=== PATIENT | female | born 1970 | race Caucasian/White ===

== ENCOUNTER 2016-12-18 10:25 | Emergency (ER) | payer MEDICAID ==
[~2016-12-18] VITALS: Ht 170.2 cm; Wt 45.4 kg
[2016-12-18 10:25] VITALS: BP 120/80; PULSE 108; RESP 19; TEMP 97.5; O2SAT 94
[~2016-12-18 10:25] MED LIST: ALBMDI INH; ALBU1.256 IH; FLUT1DIS IH; FLUT1DIS3 INH; HYDR-4100 PO; LEVA0.31 IH; LORA10TA68 PO; MONT4TAB8 PO; PRED5TAB PO
--- NOTE | 2016-12-18 10:25 | NUR ---
BROUGHT BACK TO BED #4, TRIAGED, REPORT GIVEN TO DIANA
--- NOTE | 2016-12-18 10:31 | NUR ---
DR PAGE AT BEDSIDE FOR EVALUATION
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
--- NOTE | 2016-12-18 10:50 | NUR ---
PT ACTING STRANGELY, WALKING AROUND ER AND GETTING INTO EVERYTHING, SCRAMBLING THROUGH DRAWERS, EATING REGULAR DIET AT THIS TIME. PT STATES LAST USE OF METH WAS YESTERDAY. HYPERVERBAL.
[2016-12-18] MEDS ORDERED: PREDNISONE 20 MG TABLET PO ONE (11:00)
[2016-12-18] MEDS ORDERED: OMEPRAZOLE 20 MG CAPSULE.DR (PriLOSEC) PO ONE (11:00)
[2016-12-18] MEDS ORDERED: IPRATROPIUM BROM 0.5 MG/2.5 ML VIAL.NEB (ATROVENT) IH ONE (11:00)
[2016-12-18] MEDS ORDERED: ALBUTEROL SULFATE 0.083% 2.5 MG/3 ML VIAL.NEB IH ONE (11:00)
--- NOTE | 2016-12-18 11:36 | NUR ---
Pt refused breathing tx.
--- NOTE | 2016-12-18 11:37 | NUR ---
PT IS REFUSING ALL TREATMENTS, REFUSED BREATHING TREATMENTS, DR PAGE AWARE. PT SIGNED OUT AMA.
[2016-12-18 11:38] VITALS: BP 120/80; PULSE 108; RESP 19; TEMP 97.5; O2SAT 94
--- NOTE | 2016-12-18 11:38 | NUR ---
Patient does not wish to proceed with medical care recommended by DR PAGE. Patient given information related to possible complications, up to and including , which could occur as a result of leaving hospital at this time. Patient verbalizes understanding of risks involved leaving against medical advice. Patient has signed AMA form.
== END 2016-12-18 11:38 | disposition home or self-care (01) ==
LOC: SED 10:25
DX: J45.901 Unspecified asthma with (acute) exacerbation (principal); F15.10 Other stimulant abuse, uncomplicated; H57.12 Ocular pain, left eye; E11.9 Type 2 diabetes mellitus without complications; K21.9 Gastro-esophageal reflux disease without esophagitis; Z86.59 Personal history of other mental and behavioral disorders; Z88.4 Allergy status to anesthetic agent; Z88.8 Allergy status to other drugs, medicaments and biological substances; Z88.1 Allergy status to other antibiotic agents
CPT/HCPCS: 99283; J7512

== ENCOUNTER 2017-01-05 00:09 | Emergency (ER) | payer MEDICAID ==
[~2017-01-05] VITALS: Ht 167.6 cm; Wt 40.8 kg
[~2017-01-05 00:09] MED LIST changes: -ALBU1.256 IH; -FLUT1DIS IH; -HYDR-4100 PO; -LEVA0.31 IH; -LORA10TA68 PO; -MONT4TAB8 PO; -PRED5TAB PO
[2017-01-05 00:24] VITALS: BP_SYST 153
--- NOTE | 2017-01-05 00:43 | NUR ---
Patient to ER bed 5 to gown for evaluation. Side rails up. Report given to Dina PIMENTEL.
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
--- NOTE | 2017-01-05 01:19 | NUR ---
ER MD De Jesus at bedside for evaluation
--- NOTE | 2017-01-05 01:37 | NUR ---
RT at bedside for breathing treatment
[2017-01-05] MEDS ORDERED: LevALBUTEROL HCL 1.25 MG/0.5 ML *CONC.* VIAL.NEB (XOPENEX CONC.) INH ONE ×2 (01:45→02:15)
[2017-01-05] MEDS ORDERED: IPRATROPIUM BROM 0.5 MG/2.5 ML VIAL.NEB (ATROVENT) IH ONE (01:45)
[2017-01-05] MEDS ORDERED: PREDNISONE 20 MG TABLET PO ONE (02:15)
--- NOTE | 2017-01-05 02:20 | NUR ---
RT at bedside for breathing treatment
[2017-01-05 03:29] VITALS: BP_SYST 130
--- NOTE | 2017-01-05 03:29 | NUR ---
Patient given written and verbal discharge instructions and verbalizes understanding. ER MD De Jesus discussed with patient the results and treatment provided. Patient in stable condition. ID arm band removed. Rx of tylenol/codeine & prednisone given. Patient educated on pain management and to follow up with PMD. Pain Scale 0/10. Opportunity for questions provided and answered.
== END 2017-01-05 03:29 | disposition home or self-care (01) ==
LOC: SED 00:09
DX: S00.12XA Contusion of left eyelid and periocular area, initial encounter (principal); I10 Essential (primary) hypertension; E11.9 Type 2 diabetes mellitus without complications; K21.9 Gastro-esophageal reflux disease without esophagitis; M41.9 Scoliosis, unspecified; Z88.4 Allergy status to anesthetic agent; Z88.8 Allergy status to other drugs, medicaments and biological substances; Y08.89XA Assault by other specified means, initial encounter; Y93.89 Activity, other specified; Y92.89 Other specified places as the place of occurrence of the external cause; Y99.8 Other external cause status; J44.9 Chronic obstructive pulmonary disease, unspecified
CPT/HCPCS: 94640; 99284; J7512

== ENCOUNTER 2017-01-17 17:23 | Inpatient (IN) | payer MEDICAID ==
[~2017-01-17] VITALS: Ht 167.6 cm; Wt 56.7 kg
[2017-01-17 17:23] VITALS: BP 136/92; PULSE 114; RESP 26; TEMP 97.1; O2SAT 94
[~2017-01-17 17:23] MED LIST changes: +ALBU1.256 IH; +FLUT1DIS IH; +HYDR-4100 PO; +LEVA0.31 IH; +LORA10TA68 PO; +MONT4TAB8 PO; +PRED5TAB PO
--- NOTE | 2017-01-17 17:23 | NUR ---
Pt presents to ED with abrupt involuntary movement- Constantly moving/jerking. Pt is disoriented with flight of ideas. Pt does not follow simple commands. No dyspnea or sob on RA. Unable to insert IV at this time.
--- NOTE | 2017-01-17 17:23 | NUR ---
Placed in room 5 . Placed on pvc monitor, blood pressure machine and pulse oximeter. To gown for exam. Side rails up.
--- NOTE | 2017-01-17 17:26 | NUR ---
ER at bedside examining patient.
[2017-01-17] MEDS ORDERED: DIAZEPAM 10 MG/2 ML DISP.SYRIN IM ONE ×2 (17:30→18:00)
[2017-01-17] MEDS ORDERED: DIPHENHYDRAMINE INJ 50 MG/ML VIAL IM ONE (18:00)
--- NOTE | 2017-01-17 18:20 | NUR ---
Telemetry removed. pt cont to get tangled and remove. Pt cont to thrash in bed.
[2017-01-17 18:31] LABS: ANION GAP 4 (5-15); CHLORIDE 105 mmol/L (98-107); CREATININE 0.81 mg/dL (0.55-1.30); GLUCOSE 83 mg/dL (70-99); POTASSIUM 3.8 mmol/L (3.5-5.1); SODIUM SERUM 140 mmol/L (136-145); UREA NITROGEN, BLOOD 23 mg/dL (8-21)
[2017-01-17 18:33] LABS: PROTHROMBIN TIME 10.6 SECS (9.5-12.5)
[2017-01-17 18:35] LABS: ALANINE AMINOTRANSFERASE 60 U/L (12-78); ALBUMIN 4.2 g/dL (3.4-4.8); ASPARTATE AMINOTRANSFERASE 58 U/L (10-37); SALICYLATE 2 mg/dL (3-30); TOTAL BILIRUBIN 0.5 mg/dL (0.0-1.0); TOTAL PROTEIN, SERUM 7.2 g/dL (6.4-8.3)
--- NOTE | 2017-01-17 18:35 | NUR ---
# 20 gauge angiocath placed to RUE. Use of asceptic technique. Opsite placed over site. Blood return noted. Blood for lab drawn from site. Flushed with 10 cc of normal saline. No evidence of infiltration noted. Patient tolerated well.
[2017-01-17 18:36] LABS: ALCOHOL, BLOOD < 3 mg/dL (<10); BASOPHILS # (AUTO) 0.1 K/uL (0.0-0.2); BASOPHILS % (AUTO) 0.3 % (0.0-2.0); EOSINOPHILS # (AUTO) 1.8 K/uL (0.0-0.4); EOSINOPHILS % (AUTO) 10.5 % (0.0-4.0); GFR AFRICAN AMERICAN 97 mL/min (>90); HEMATOCRIT 39.8 % (36-48); HEMOGLOBIN 12.7 g/dL (12.0-16.0); LYMPHOCYTES # (AUTO) 2.8 K/uL (1.0-5.5); MEAN CORPUSCULAR HEMOGLOBIN 27 pg (27-31); MEAN CORPUSCULAR HGB CONC 32 % (32-36); MEAN CORPUSCULAR VOLUME 85 fL (79.0-98.0); MONOCYTES # (AUTO) 1.4 K/uL (0.0-1.0); MONOCYTES % (AUTO) 8.1 % (1.7-9.3); NEUTROPHILS # (AUTO) 11.2 K/uL (1.8-7.7); NEUTROPHILS % (AUTO) 65.1 % (40.0-70.0); PLATELET COUNT (AUTO) 368 K/uL (130-430); RED CELL DISTRIBUTION WIDTH 17.8 % (9.0-15.0); WHITE BLOOD COUNT (AUTO) 17.4 K/uL (4.8-10.8)
[2017-01-17] MEDS ORDERED: LORazepam 2 MG/ML VIAL (FOR ER USE) IVP ONE ×2 (18:45→20:00)
--- NOTE | 2017-01-17 18:54 | NUR ---
Pt cont thrashing around, agitated. Admin Ativan IVP. pt rox well
[2017-01-17] MEDS ORDERED: NACL 0.9% 1,000 ML IV ONE (19:15)
--- NOTE | 2017-01-17 19:18 | NUR ---
Endorsed care to MARGARITO Arroyo
--- NOTE | 2017-01-17 19:20 | NUR ---
Patient is agitated, cant stand still. Unable to do EKG or CT scan. ER MD aware.
[2017-01-17 19:26] LABS: ACETAMINOPHEN < 1 ug/mL (1-30)
[2017-01-17] MEDS ORDERED: DIPHENHYDRAMINE INJ 50 MG/ML VIAL IVP ONE (20:00)
[2017-01-17] MEDS ORDERED: HALOPERIDOL LACTATE 5 MG/ML VIAL IVP ONE (20:00)
[2017-01-17 20:25] VITALS: BP 133/88; PULSE 85; RESP 18; TEMP 96.4; O2SAT 94
--- NOTE | 2017-01-17 20:50 | NUR ---
Patient will be admitted to care of DR BEACH. Admitted to TELE unit. Will go to room 135. Belongings list completed. Summary report printed. Report will be given at bedside.
--- NOTE | 2017-01-17 21:02 | NUR ---
Transfer to [facility] via ACLS protocol. Licensed nurse present. IV present no signs or symptoms of infiltration.
--- NOTE | 2017-01-17 21:25 | NUR ---
NOTES RECEIVED THE PT FROM THE ER PT VERY SLEEPY.RN IS AT THE BEDSIDE.PT ON THE MONITOR AND SHOWS SR.PT ORIENTED TO NAME ONLY.CALL LIGHT WITHIN REACH ,DR BEACH IS HERE.CONTINUE TO MONITOR.
--- NOTE | 2017-01-17 21:25 | NUR ---
Admission Note Received patient from ER with diagnosis of acute phycosis. Initial Plan of Care discussed-patient verbalized understanding. Family at bedside. Oriented to room, call light, pain management and safety.
--- NOTE | 2017-01-17 21:31 | NUR ---
ADMISSION NOTE Received patient from ER via rkermit. Patient admitted with diagnosis of acute psychosis. Patient is awake, alert, oriented X 1. Patient oriented to hospital room, call light, toileting, pain management and safety-teach back done. Patient informed that Braulio SPENCE will be her nurse and that their room number is 103A. Call light within reach.
[2017-01-17] MEDS: D5LR 1,000 ML IV SCH (21:56)
[2017-01-17] MEDS ORDERED: HALOPERIDOL LACTATE 5 MG/ML VIAL IVP PRN (22:00)
[2017-01-17] MEDS ORDERED: HYDROcodone/ACETAMIN 10-325 MG TAB PO PRN (22:00)
[2017-01-17] MEDS ORDERED: ACETAMINOPHEN 325 MG TABLET PO PRN (22:00)
[2017-01-17] MEDS ORDERED: LORazepam 2 MG/ML VIAL IVP PRN (22:00)
[2017-01-17] MEDS ORDERED: HYDROcodone/ACETAMIN 5-325 MG TAB (NORCO/ VICODIN) PO PRN (22:00)
[2017-01-17] MEDS ORDERED: ONDANSETRON HCL 4 MG/2 ML VIAL IVP PRN (22:00)
--- NOTE | 2017-01-17 22:35 | NUR ---
CONSULTATION PAGED REASON FOR CONSULTATION:PSYCHOSIS WAS CONSULT CALLED?Y PERSON WHO WAS NOTIFIED:SULEMAN CONSULTING PHYSICIAN:,SAID BRIDGE OPERATOR SLIP SPECIALTY:PSYCH BRIDGE OPERATOR SLIP PHONE NUMBER:[phone]
[2017-01-18] MEDS ORDERED: LORazepam 2 MG/ML VIAL IVP PRN (00:30)
[2017-01-18] MEDS ORDERED: levETIRAcetam 500 MG TABLET PO ONE (00:30)
--- NOTE | 2017-01-18 01:45 | NUR ---
NOTES PT REMAINS ASLEEP.CONTINUE TO MONITOR.
--- NOTE | 2017-01-18 03:17 | NUR ---
NOTES PT REPOSITIONED.LARGE F.B.NOTICED TO LOWER RT ABDOMEN ,PT STATES IT IS A MORPHINE PUMP.
--- NOTE | 2017-01-18 05:15 | NUR ---
NOTES PT SLEEPING,CALL LIGHT WITHIN REACH.CONTINUE TO MONITOR.
--- NOTE | 2017-01-18 05:47 | NUR ---
FINAL ROUNDS PT IS RESTING @ THIS TIME. NO S/S OF PAIN OR ANY DISTRESS. V/S ARE WNL. ALL NEEDS MET AND ANTICIPATED BY [facility] NURSES. BED IN LOW POSITION WITH SIDE RAILS UP X 2 FOR SAFETY. CALL LIGHT WITHIN REACH; ENDORSED. Addendum: 01/18/17 at 0550 by Robert Canas RN WRONG PT PLS DISREGARD NOTES
--- NOTE | 2017-01-18 06:07 | NUR ---
CLOSING NOTES PT SLEEPING.CALL LIGHT WITHIN REACH.BED ALARM REMAINS ON.WILL ENDORSE THE CARE OF THE PT TO THE DAY NURSE.
[2017-01-18 06:32] VITALS: BP 136/70; PULSE 65; RESP 19; TEMP 97.9; O2SAT 98
[2017-01-18 07:23] LABS: HEMATOCRIT 38.6 % (36-48); HEMOGLOBIN 12.4 g/dL (12.0-16.0); MEAN CORPUSCULAR HEMOGLOBIN 27 pg (27-31); MEAN CORPUSCULAR HGB CONC 32 % (32-36); MEAN CORPUSCULAR VOLUME 84 fL (79.0-98.0); PLATELET COUNT (AUTO) 275 K/uL (130-430); RED BLOOD CELL COUNT(AUTO) 4.59 MIL/uL (4.2-6.2); RED CELL DISTRIBUTION WIDTH 17.1 % (9.0-15.0); WHITE BLOOD COUNT (AUTO) 8.1 K/uL (4.8-10.8)
--- NOTE | 2017-01-18 07:37 | NUR ---
INITIAL NOTE PT LAYING IN BED, RESTING, ORIENTED TO NAME, SLURRED SPEECH NOTED, IV TO EVANGELINA INTACT AND INFUSING FLUIDS AT ORDERED RATE, NO S/S OF INFILTRATION NOTED, UNABLE TO ORIENT PATIENT, PT DROWSY ADMITTED FOR PSYCHOSIS , SAFETY MEASURES IN PLACE, CALL LIGHT WITHIN REACH, BED ALARM ON, BED IN LOW POSITION AND LOCKED, AND ROOM LOCATED NEAR NURSING STATION, WILL CONTINUE TO MONITOR
[2017-01-18 07:49] LABS: CALCIUM 7.9 mg/dL (8.4-11.0); POTASSIUM 3.4 mmol/L (3.5-5.1)
[2017-01-18 07:50] LABS: CREATININE 0.61 mg/dL (0.55-1.30); TOTAL BILIRUBIN 0.6 mg/dL (0.0-1.0); TOTAL PROTEIN, SERUM 5.6 g/dL (6.4-8.3)
[2017-01-18 08:02] VITALS: BP 105/65; PULSE 77; RESP 12; TEMP 97.5; O2SAT 95
[2017-01-18] MEDS: ENOXAPARIN SODIUM 40 MG/0.4 ML SYRINGE SUBCUT SCH (08:09)
[2017-01-18 08:30] LABS: CKMB RELATIVE INDEX 4.2 (0.0-2.9)
[2017-01-18] MEDS ORDERED: levETIRAcetam 500 MG TABLET PO SCH (09:00)
[2017-01-18 09:22] LABS: BASOPHILS % (MANUAL) 0 % (0-2); EOSINOPHILS % (MANUAL) 17 % (0-7); LYMPHOCYTES % (MANUAL) 25 % (20-46); MONOCYTES % (MANUAL) 5 % (0-11)
--- NOTE | 2017-01-18 09:26 | NUR ---
LABS NOTED, GLUCOSE 76 ENTERED ROOM ENCOURAGED PT TO TAKE A DRINK OF ORANGE JUICE, PT TOOK A SMALL SIP, THEN STATED THAT WAS ENOUGH, EDUCATED PATIENT REGARDING HYPOGLYCEMIA, PT REFUSED DESPITE EDUCATION STATED THAT'S ENOUGH LEAVE ME ALONE, WILL CONTINUE TO MONITOR.
--- NOTE | 2017-01-18 10:30 | NUR ---
Pt resting, easy to arouse, encouraged to drink orange juice, pt compliant had orange juice, pt changed position and returned to sleep. no s/s of distress, responds when asked questions, call light within reach, safety measures in place, bed alarm on , will continue to monitor
[2017-01-18] MEDS: D5LR 1,000 ML IV SCH ×2 (10:57→22:03)
--- NOTE | 2017-01-18 11:33 | NUR ---
FOLLOW UP ON BLOOD GLUCOSE, ACCUCHECK 82, PT RESTING, ABLE TO AROUSE, SLURRED SPEECH NOTED, PER PATIENT JUST WANTS TO SLEEP, SAFETY MEASURES IN PLACE, SIDE RAILS UP X3, BED ALARM ON, CALL LIGHT WITHIN REACH, WILL CONTINUE TO MONITOR
[2017-01-18 12:15] VITALS: BP 113/73; PULSE 82; RESP 18; TEMP 97.6; O2SAT 96
--- NOTE | 2017-01-18 12:53 | NUR ---
DR BEACH ROUNDING PT UP EATING LUNCH, AWAKE, ALERT, PT AWARE SHE IS IN HOSPITAL UNABLE TO STATE WHICH HOSPITAL, PT ORIENTED TO LOCATION, PT VERBALIZED UNDERSTANDING AND ASKED FOR SPRITE, SAFETY MEASURES IN PLACE, BED ALARM ON, CALL LIGHT WITHIN REACH, BED IN LOW POSITION AND LOCKED, WILL CONTINUE TO MONITOR
--- NOTE | 2017-01-18 13:10 | NUR ---
DR BEACH AT BEDSIDE, AWARE OF PATIENT IMPLANTED PAIN PUMP TO LOWER RIGHT QUADRANT ABDOMEN, PER MD THE IMPLANT IS AM OLD DESIGN MAYBE 10YRS OLD, PT REINA TO VERBALIZE SHE HAS A PAIN PUMP, NOT ABLE TO STAT WHY, MD STATED TO CONTINUE TO MONITOR AND FOLLOW UP AND PSYCH EVALUATION. RECEIVED NEW ORDER FOR POTASSIUM PO, ORDER NOTED AND CARRIED OUT. SAFETY MEASURES IN PLACE, CALL LIGHT WITH IN REACH, BED ALARM ON, WILL CONTINUE TO MONITOR PATIENT.
[2017-01-18] MEDS ORDERED: POTASSIUM CHLORIDE 20 MEQ TAB.PRT.SR PO ONE (13:15)
--- NOTE | 2017-01-18 14:00 | NUR ---
Social Service Note: Pt referred to social service manager by physician and nursing due to pt being homeless. CAR CLERK PULLMAN met with pt at bedside; pt responds when her name is called; pt falling asleep while talking to CAR CLERK PULLMAN. Pt nodded off multiple times during conversation and needed to be woken up to finish conversation. Pt stated that she stays in [facility] with her boyfriend Roly. CAR CLERK PULLMAN could not determine if Roly is homeless or if he has a residence. Pt states that upon discharge she will go back with Roly. Pt states that she does use meth; pt reports using meth about once a week; pt states that her last use was about one week ago. CAR CLERK PULLMAN will follow up with pt to provide resources when pt can participate further in conversation. CAR CLERK PULLMAN will remain available for support and will follow up as needed.
[2017-01-18 16:50] VITALS: BP 114/73; PULSE 68; RESP 18; TEMP 97.2; O2SAT 93
--- NOTE | 2017-01-18 17:00 | NUR ---
ROUNDS PT LAYING ON HER SIDE IN BED, NO S/S OF DISTRESS OR COMPLAINT OF PAIN, PT IS CALM, NO AGITATED, PT STATES SHE JUST WANTS TO CONTINUE RESTING, SAFETY MEASURES IN PLACE, CALL LIGHT WITHIN REACH, WILL CONTINUE TO MONITOR
--- NOTE | 2017-01-18 17:46 | NUR ---
PER AM REPORT URINE DRUG SCREEN AND UA PROFILE WAS CANCELLED LAST NIGHT DUE TO THE PATIENT NOT ABLE TO VOID, PER REPORT IF PATIENT WAS ABLE TO VOID RN WAS TO PLACE ORDER AND RETRIEVE SPECIMEN, PT VOIDED IN HAT, SPECIMEN RETRIEVED AND SENT TO LAB, ORDER PLACED. WILL FOLLOW UP
[2017-01-18 17:51] LABS: BILIRUBIN,URINE NEGATIVE (NEGATIVE); BLOOD, URINE 1+ (NEGATIVE); CLARITY/URINE SL HAZY (CLEAR); COLOR,URINE YELLOW (YELLOW); GLUCOSE,URINE NEGATIVE (NEGATIVE); KETONES,URINE NEGATIVE (NEGATIVE); LEUKOCYTE ESTERASE ,URINE NEGATIVE (NEGATIVE); NITRITE, URINE POSITIVE (NEGATIVE); PH,URINE 6.5 (5.0-8.0); PROTEIN URINE NEGATIVE (NEGATIVE); UROBILINOGEN,URINE 0.2 (0.2-1.0)
[2017-01-18 18:38] LABS: BARBITURATE, URINE NEGATIVE (NEG <=200); BENZODIAZEPINE, URINE POSITIVE (NEG <=150); CANNABINOID, URINE NEGATIVE (NEG <=50); COCAINE, URINE NEGATIVE (NEG <=150); METHAMPHETAMINES SCREEN,URINE POSITIVE (NEG <=500); OPIATE, URINE NEGATIVE (NEG <=100); PHENCYCLIDINE SCREEN,URINE NEGATIVE (NEG <=25); UR TRICYCLIC ANTIDEPRESSANTS NEGATIVE (NEG <=300); URINE AMPHETAMINE POSITIVE (NEG <=500); URINE METHADONE NEGATIVE (NEG <=200); URINE OXYCODONE SCREEN NEGATIVE (NEG <=100); URINE PROPOXYPHENE SCREEN NEGATIVE (NEG <=300)
[2017-01-18 18:49] LABS: BACTERIA,URINE MANY /HPF (None Seen); MUCUS,URINE 1+ /LPF (None Seen)
--- NOTE | 2017-01-18 19:00 | NUR ---
CLOSING NOTE PT RESTING, AROUSES TO NAME, EVEN RISE AND FALL OF CHEST, NO COMPLAINT OF PAIN OR S/S OF DISTRESS, IV FLUIDS AT ORDERED RATE, NO S/S OF INFILTRATION NOTED ALL NEEDS ATTENDED TO THROUGHOUT SHIFT, SAFETY MEASURES MAINTAINED, BED ALARM ON, BED IN LOW POSITION AND LOCKED, CALL LIGHT WITHIN REACH, SIDE RAILS UP X3, WILL GIVE REPORT TO FOLLOWING SHIFT.
--- NOTE | 2017-01-18 19:55 | NUR ---
OPENING NOTE Pt. and report received from day shift nurse. Pt. arousable to name, but is very "tired" and resting in bed. IV site to right upper arm 20g is infusing IVF as ordered. Plan of care discussed. Pt. verbalized understanding. Seizure pads in place, no s/s of seizure activity at this time. Safety precautions in place. Educated pt. to use call light for needs and assistance OOB. Call light to right hand. Bed alarm on. Will continue to monitor.
[2017-01-18 20:00] VITALS: BP 120/72; PULSE 86; RESP 17; TEMP 97.5; O2SAT 93
--- NOTE | 2017-01-18 22:45 | NUR ---
IVF/REQUESTED SNACK IVF infusing as ordered. Pt. denies any pain or discomfort at this time. Requested snack and juice. Pt. tolerated well. No s/s of acute distress. Safety and seizure precautions in place. Bed alarm on. No s/s of seizure activity noted at this time. Will continue to monitor.
[2017-01-19 00:02] VITALS: BP 115/79; PULSE 78; RESP 17; TEMP 97; O2SAT 93
--- NOTE | 2017-01-19 00:03 | NUR ---
ROUNDS Pt. is resting quietly in bed with eyes closed, easily arousable to name. Respirations are even and unlabored with visible chest rise and fall. No s/s of acute distress. No s/s of seizure activity noted at this time. Safety and seizure precautions in place. Bed alarm on. Call light to right hand. Will continue to monitor.
--- NOTE | 2017-01-19 01:10 | NUR ---
BED ALARM WENT OFF/ASSISTED PT. TO BATHROOM Pt.'s bed alarm went off, pt. stated she needed to void. Assisted pt. to bathroom due to unsteady gait. CNAs at bedside changing pt.'s bed linen due to soiling. Reminded pt. to use call light but pt. appears to be forgetful and confused. Call light placed to right hand and demonstrated pt. on how to use. Pt. requested apple juice. No s/s of acute distress. Pt. denies any pain or discomfort at this time. Pt. refusing to wear slippers but will continue to encourage. Safety and seizure precautions are in place. No s/s of seizure activity noted at this time. Bed alarm on. Will continue to monitor.
--- NOTE | 2017-01-19 02:10 | NUR ---
PATIENT RESTING Pt. is resting quietly in bed with eyes closed, respirations are even and unlabored with visible chest rise and fall. No s/s of acute distress. Safety and seizure precautions in place. No s/s of seizure activity noted at this time. Bed alarm on. Call light to right hand. Will continue to monitor.
[2017-01-19 04:15] VITALS: BP 134/89; PULSE 76; RESP 16; TEMP 98; O2SAT 95
--- NOTE | 2017-01-19 04:17 | NUR ---
PT. RESTING Pt. is resting quietly in bed with eyes closed, respirations are even and unlabored with visible chest rise and fall. No s/s of acute distress or seizure activity at this time. Safety and seizure precautions in place. Call light to right hand. Bed alarm on. Will continue to monitor.
--- NOTE | 2017-01-19 05:08 | NUR ---
CONSULTATION FOLLOW UP REASON FOR CONSULTATION:PSYCHOSIS WAS CONSULT CALLED?Y PERSON WHO WAS NOTIFIED:IRENE CONSULTING PHYSICIAN:,SAID COMBINE MECHANIC SPECIALTY:PSYCH COMBINE MECHANIC PHONE NUMBER:[phone]
--- NOTE | 2017-01-19 05:12 | NUR ---
CONSULT F/U WITH DR. BENITA Antonio, manager monitoring, spoke with Inga from exchange to page/follow up with Dr. Murphy (neuro consult for psychosis). Will continue to f/u.
--- NOTE | 2017-01-19 06:13 | NUR ---
CLOSING NOTES Pt. requested apple juice. All needs met throughout shift. Pt. is stable with no s/s of acute distress. Safety, seizure and fall precautions maintained throughout shift and are in place. Bed alarm on. Call light to right hand but pt. is forgetful and unable to use. Room near nurses station. Will endorse care to oncoming day shift nurse.
[2017-01-19 06:50] LABS: ANION GAP 1 (5-15); CALCIUM 8.3 mg/dL (8.4-11.0); CHLORIDE 106 mmol/L (98-107); CREATININE 0.58 mg/dL (0.55-1.30); GLUCOSE 87 mg/dL (70-99); SODIUM SERUM 137 mmol/L (136-145); UREA NITROGEN, BLOOD 9 mg/dL (8-21)
[2017-01-19 07:01] LABS: BASOPHILS % (AUTO) 0.4 % (0.0-2.0); EOSINOPHILS # (AUTO) 1.5 K/uL (0.0-0.4); EOSINOPHILS % (AUTO) 19.3 % (0.0-4.0); HEMATOCRIT 40.2 % (36-48); HEMOGLOBIN 12.8 g/dL (12.0-16.0); LYMPHOCYTES # (AUTO) 1.8 K/uL (1.0-5.5); MEAN CORPUSCULAR HEMOGLOBIN 27 pg (27-31); MEAN CORPUSCULAR HGB CONC 32 % (32-36); MEAN CORPUSCULAR VOLUME 85 fL (79.0-98.0); MONOCYTES # (AUTO) 0.6 K/uL (0.0-1.0); MONOCYTES % (AUTO) 8.4 % (1.7-9.3); NEUTROPHILS # (AUTO) 3.8 K/uL (1.8-7.7); NEUTROPHILS % (AUTO) 48.9 % (40.0-70.0); PLATELET COUNT (AUTO) 305 K/uL (130-430); RED BLOOD CELL COUNT(AUTO) 4.73 MIL/uL (4.2-6.2); WHITE BLOOD COUNT (AUTO) 7.7 K/uL (4.8-10.8)
--- NOTE | 2017-01-19 08:00 | NUR ---
AM Notes Pt aaox2 with confusion and forgetfulness. No complaints of pain or discomfort. No distress noted. Pt feeling anxious and restless. Calming and comfort measures done. Fall and safety precautions enforced with bed alarm armed, 3 rails up, fall risk band on and close to nurse's station. Seizure precautions enforced with pads on rails. Encouraged to call for assistance. Call light within reach. Will monitor.
[2017-01-19 08:36] VITALS: BP 125/90; PULSE 105; RESP 20; TEMP 97.9; O2SAT 95
--- NOTE | 2017-01-19 09:02 | NUR ---
MADE A F/U CONSULT TO [facility], DR JOY RE: PSYCHOSIS. SPOKE TO RAY
--- NOTE | 2017-01-19 09:21 | NUR ---
Dr. Jeffrey LYNNE doing rounds and assessing patient. Plan of care discussed.
[2017-01-19] MEDS: ENOXAPARIN SODIUM 40 MG/0.4 ML SYRINGE SUBCUT SCH (09:27)
--- NOTE | 2017-01-19 10:00 | NUR ---
Rounds Pt sound asleep. No signs of facial grimacing for pain or discomfort. No distress noted. Safety precautions enforced with bed alarm armed. Call light within reach.
[2017-01-19] MEDS: D5LR 1,000 ML IV SCH (10:56)
--- NOTE | 2017-01-19 11:38 | NUR ---
Rafael scale evaluation: Patient evaluated for a low Rafael score of 14. Patient was awake, alert, and oriented 2, and received in a [place] bed with an Isoflex KAROLINA mattress. Patient is able to turn in bed independently. Skin is good minus. Recommend encourage and assist patient as needed with repositioning every 2 hours with pillow support, and offload pressure areas with pillows for pressure redistribution. Elevate, offload and flow bilateral heels with pillows. Performed skin care and monitor skin integrity every shift.
[2017-01-19 11:41] VITALS: BP 122/82; PULSE 99; RESP 16; TEMP 97.4; O2SAT 96
--- NOTE | 2017-01-19 12:36 | NUR ---
Rounds Pt just finished eating lunch. Restlessness noted. No complaints of pain or discomfort. Fall and safety precautions enforced. Will continue to monitor.
--- NOTE | 2017-01-19 13:30 | NUR ---
Dr. Kristian LYNNE doing rounds. Plan of care discussed.
--- NOTE | 2017-01-19 13:48 | NUR ---
DC PLANNING: Dr. Townsend is in to discharge the pt. to home. Roly, the pt's boy friend will pick the pt. up between 3-4 pm. Roly # [phone] , JORDY Lemus made aware.
[2017-01-19] MEDS ORDERED: cefTRIAXone 1 GM in D5W 50 ML IV SCH (14:00)
[2017-01-19] MEDS ORDERED: cefTRIAXone 1 GM VIAL IM ONE (14:00)
--- NOTE | 2017-01-19 14:02 | NUR ---
Resting Pt went back to sleep after talking to Dr. Townsend. No significant changes noted. Will monitor.
[2017-01-19] MEDS ORDERED: CIPR-172 PO ×3 (14:23→14:26)
[2017-01-19 14:30] VITALS: BP 121/77; PULSE 96; RESP 19; TEMP 97; O2SAT 96
[2017-01-19 14:38] VITALS: BP 121/77; PULSE 97; RESP 19; TEMP 97
--- NOTE | 2017-01-19 15:10 | NUR ---
Discharge Discharge Discharge patient with boyfriend. Transitional care instructions and handout explained and prescription for Cipro explained and given. D/C IV and dressing applied. Vital signs stable. Pt left floor via w/c to private vehicle. No distress noted.
[2017-01-20] MEDS ORDERED: CITALOPRAM HYDROBROMIDE 20 MG TABLET PO SCH (09:00)
[2017-01-20] MEDS ORDERED: ARIPiprazole 5 MG TAB PO SCH ×2 (09:00)
== END 2017-01-19 15:10 | disposition home or self-care (01) | DRG 751 ==
LOC: SED 17:23 → STU 20:57 → SMU 01-18 13:00
PROVIDERS: ADMIT Internal Medicine; ATTEND Internal Medicine
DX: F23 Brief psychotic disorder (principal); M62.82 Rhabdomyolysis; E86.0 Dehydration; N39.0 Urinary tract infection, site not specified; J44.9 Chronic obstructive pulmonary disease, unspecified; F32.9 Major depressive disorder, single episode, unspecified; F15.10 Other stimulant abuse, uncomplicated; E11.9 Type 2 diabetes mellitus without complications; K21.9 Gastro-esophageal reflux disease without esophagitis; G89.29 Other chronic pain; M54.2 Cervicalgia; M54.9 Dorsalgia, unspecified; F22 Delusional disorders; Z59.0 Homelessness; Z88.4 Allergy status to anesthetic agent; Z88.1 Allergy status to other antibiotic agents; Z88.8 Allergy status to other drugs, medicaments and biological substances; Z79.899 Other long term (current) drug therapy
CPT/HCPCS: 36415; 71010; 80048; 80053; 80307; 81000-TC; 82550-TC; 82553-TC; 82962; 84484; 85007; 85025; 85027; 85610-TC; 85730-TC; 87081; 93005; 96361; 96372; 96374; 96375; 96376; 99285; G0480; G0481; G0482; J0696; J1200; J1630; J1650; J2060; J3360; J7030; J7120

== ENCOUNTER 2017-04-05 07:52 | Inpatient (IN) | payer MEDICAID ==
[~2017-04-05] VITALS: Ht 167.6 cm; Wt 45.4 kg
[2017-04-05 07:52] VITALS: BP_SYST 92
[~2017-04-05 07:52] MED LIST changes: -ALBU1.256 IH; +CIPR-172 PO; -FLUT1DIS IH; -HYDR-4100 PO; -LEVA0.31 IH; -LORA10TA68 PO; -MONT4TAB8 PO; -PRED5TAB PO
[2017-04-05] MEDS ORDERED: ALBUTEROL SULFATE 0.083% 2.5 MG/3 ML VIAL.NEB IH ONE ×3 (08:00→13:30)
[2017-04-05] MEDS ORDERED: methylPREDNISolone SOD SUCC/PF 62.5 MG/ML VIAL IVP ONE (08:00)
[2017-04-05] MEDS ORDERED: IPRATROPIUM BROM 0.5 MG/2.5 ML VIAL.NEB (ATROVENT) IH ONE ×2 (08:00→13:30)
[2017-04-05] MEDS ORDERED: ALBUTEROL SULFATE 0.083% 2.5 MG/3 ML VIAL.NEB INH ONE (11:37)
[2017-04-05] MEDS ORDERED: NACL 0.9% 1,000 ML IV ONE (14:15)
[2017-04-05] MEDS ORDERED: ONDANSETRON 4 MG ODT TAB PO ONE (14:15)
[2017-04-05] MEDS ORDERED: cefTRIAXone 1 GM IVPB PREMIX 50 ML IV ONE (14:15)
[2017-04-05] MEDS ORDERED: HYDROcodone/ACETAMIN 5-325 MG TAB (NORCO/ VICODIN) PO ONE (14:15)
[2017-04-05] MEDS ORDERED: IPRATROPIUM/ALBUTEROL SULFATE 3 ML AMPUL.NEB INH PRN (14:30)
[2017-04-05 14:32] LABS: BASOPHILS # (AUTO) 0.1 K/uL (0.0-0.2); LYMPHOCYTES # (AUTO) 0.3 K/uL (1.0-5.5); MEAN CORPUSCULAR HEMOGLOBIN 28 pg (27-31); MEAN CORPUSCULAR HGB CONC 32 % (32-36); MEAN CORPUSCULAR VOLUME 88 fL (79.0-98.0)
[2017-04-05 14:38] LABS: BASOPHILS % (AUTO) 0.7 % (0.0-2.0); EOSINOPHILS % (AUTO) 0.1 % (0.0-4.0); HEMATOCRIT 43.1 % (36-48); HEMOGLOBIN 13.8 g/dL (12.0-16.0); LYMPHOCYTES % (AUTO) 3.7 % (20.5-51.5); MONOCYTES % (AUTO) 0.3 % (1.7-9.3); NEUTROPHILS # (AUTO) 8.1 K/uL (1.8-7.7); NEUTROPHILS % (AUTO) 95.2 % (40.0-70.0); PLATELET COUNT (AUTO) 355 K/uL (130-430); RED BLOOD CELL COUNT(AUTO) 4.87 MIL/uL (4.2-6.2); WHITE BLOOD COUNT (AUTO) 8.5 K/uL (4.8-10.8)
[2017-04-05 14:41] LABS: CALCIUM 8.7 mg/dL (8.4-11.0); CREATININE 0.89 mg/dL (0.55-1.30); POTASSIUM 3.4 mmol/L (3.5-5.1)
[2017-04-05] MEDS ORDERED: MOME13HF2 INH (15:16)
[2017-04-05] MEDS ORDERED: ONDANSETRON HCL 4 MG/2 ML VIAL IVP PRN (15:30)
[2017-04-05] MEDS ORDERED: POTASSIUM CHLORIDE 10 MEQ TAB.PRT.SR PO PRN (15:30)
[2017-04-05] MEDS ORDERED: LORazepam 2 MG/ML VIAL IVP PRN (15:30)
[2017-04-05] MEDS ORDERED: ALBUTEROL MDI INHALATION 8 GM INH INH PRN (15:30)
[2017-04-05] MEDS ORDERED: MORPHINE 2 MG/ML INJ. SYRINGE IVP PRN (15:30)
[2017-04-05] MEDS ORDERED: ZOLPIDEM TARTRATE 5 MG TABLET PO PRN (15:30)
[2017-04-05] MEDS ORDERED: MAGNESIUM SULFATE 50 ML IV PRN (15:30)
[2017-04-05] MEDS ORDERED: ACETAMINOPHEN 325 MG TABLET PO PRN (15:30)
[2017-04-05] MEDS ORDERED: DOCUSATE SODIUM 100 MG CAPSULE PO PRN (15:30)
[2017-04-05 15:48] VITALS: BP_SYST 124
[2017-04-05 16:00] VITALS: BP_SYST 124
[2017-04-05] MEDS ORDERED: ALBUTEROL SULFATE 0.083% 2.5 MG/3 ML VIAL.NEB INH PRN (16:30)
[2017-04-05 17:02] LABS: ABG TOTAL HEMOGLOBIN 13.6 G/dL (12.0-18.0); BLOOD GAS BASE EXCESS -2.2 mmol/L (-3.0-3.0); BLOOD GAS COHb% 0.4 % (0.5-1.5); BLOOD O2Hb% 93.5 % (94.0-97.0)
[2017-04-05 17:03] LABS: BLOOD GAS HHB 5.7 % (0.0-6.0)
[2017-04-05] MEDS ORDERED: HYDROcodone/ACETAMIN 5-325 MG TAB (NORCO/ VICODIN) PO PRN (17:30)
[2017-04-05] MEDS: ALBUTEROL SULFATE 0.083% 2.5 MG/3 ML VIAL.NEB INH SCH (18:00)
[2017-04-05] MEDS ORDERED: cefTRIAXone 1 GM in D5W 50 ML IV SCH (18:00)
[2017-04-05] MEDS: IPRATROPIUM BROM 0.5 MG/2.5 ML VIAL.NEB (ATROVENT) INH SCH (19:00)
[2017-04-05 20:00] VITALS: BP_SYST 132
[2017-04-05] MEDS: methylPREDNISolone SOD SUCC 40 MG/ML VIAL IVP SCH (20:52)
[2017-04-05] MEDS ORDERED: NON-FORMULARY MEDICATION (Mometasone/Formoterol* (Dulera 100 Mcg/5 Mcg Inhaler*) 2 PUFF) INH SCH (21:00)
[2017-04-05] MEDS: BUDESONIDE 0.5 MG/2 ML AMPUL.NEB INH SCH (21:00)
[2017-04-05] MEDS ORDERED: FLUTICASONE 250 mCg/SALMETEROL 50 mCg DISKUS W.DEV INH SCH (21:00)
[2017-04-06 00:23] VITALS: BP_SYST 98
[2017-04-06] MEDS: IPRATROPIUM BROM 0.5 MG/2.5 ML VIAL.NEB (ATROVENT) INH SCH ×2 (01:00→07:00)
[2017-04-06 04:14] VITALS: BP_SYST 99
[2017-04-06 04:46] LABS: BARBITURATE, URINE NEGATIVE (NEG <=200); METHAMPHETAMINES SCREEN,URINE POSITIVE (NEG <=500); URINE AMPHETAMINE NEGATIVE (NEG <=500)
[2017-04-06 04:47] LABS: BENZODIAZEPINE, URINE NEGATIVE (NEG <=150); CANNABINOID, URINE NEGATIVE (NEG <=50); COCAINE, URINE NEGATIVE (NEG <=150); OPIATE, URINE POSITIVE (NEG <=100); PHENCYCLIDINE SCREEN,URINE NEGATIVE (NEG <=25); UR TRICYCLIC ANTIDEPRESSANTS NEGATIVE (NEG <=300); URINE METHADONE NEGATIVE (NEG <=200); URINE OXYCODONE SCREEN NEGATIVE (NEG <=100); URINE PROPOXYPHENE SCREEN NEGATIVE (NEG <=300)
[2017-04-06] MEDS: ALBUTEROL SULFATE 0.083% 2.5 MG/3 ML VIAL.NEB INH SCH ×2 (07:35)
[2017-04-06 08:01] VITALS: BP_SYST 111
[2017-04-06] MEDS: methylPREDNISolone SOD SUCC 40 MG/ML VIAL IVP SCH (08:30)
[2017-04-06] MEDS: BUDESONIDE 0.5 MG/2 ML AMPUL.NEB INH SCH (09:00)
[2017-04-06 09:31] VITALS: BP_SYST 111
[2017-04-06 12:19] VITALS: BP_SYST 106
== END 2017-04-06 12:30 | disposition home or self-care (01) | DRG 141 ==
LOC: SED 07:52 → SMU 14:24
PROVIDERS: ADMIT General Practice; ATTEND General Practice
DX: J45.901 Unspecified asthma with (acute) exacerbation (principal); J44.9 Chronic obstructive pulmonary disease, unspecified; F15.10 Other stimulant abuse, uncomplicated; F19.10 Other psychoactive substance abuse, uncomplicated; B19.20 Unspecified viral hepatitis C without hepatic coma; G89.29 Other chronic pain; E11.9 Type 2 diabetes mellitus without complications; K21.9 Gastro-esophageal reflux disease without esophagitis; M54.9 Dorsalgia, unspecified; M54.2 Cervicalgia; M41.9 Scoliosis, unspecified; F17.210 Nicotine dependence, cigarettes, uncomplicated; Z59.0 Homelessness; Z88.8 Allergy status to other drugs, medicaments and biological substances; Z79.899 Other long term (current) drug therapy
CPT/HCPCS: 36415; 36600; 71020-TC; 80048; 80307; 82803-TC; 83605; 85025; 87040-TC; 94640; 96365; 96375; 99285; J0696; J1030; J2930; J7030; J7060; Q0162

== ENCOUNTER 2017-04-08 11:02 | Emergency (ER) | payer MEDICAID ==
[~2017-04-08] VITALS: Ht 160 cm; Wt 45.4 kg
[2017-04-08 11:02] VITALS: BP_SYST 153
[~2017-04-08 11:02] MED LIST changes: -CIPR-172 PO; +MOME13HF2 INH
[2017-04-08 11:10] VITALS: BP_SYST 153
== END 2017-04-08 11:10 ==
LOC: SED 11:02
DX: Z02.89 Encounter for other administrative examinations (principal); J44.9 Chronic obstructive pulmonary disease, unspecified; E11.9 Type 2 diabetes mellitus without complications; K21.9 Gastro-esophageal reflux disease without esophagitis; Z88.4 Allergy status to anesthetic agent; Z88.1 Allergy status to other antibiotic agents
CPT/HCPCS: 99283

== ENCOUNTER 2017-05-04 06:46 | Inpatient (IN) | payer MEDICAID ==
[2017-05-04] VITALS (7 sets, daily range): BP systolic 117–142
[~2017-05-04] VITALS: Ht 167.6 cm; Wt 51.7 kg
[2017-05-04] MEDS ORDERED: IPRATROPIUM BROM 0.5 MG/2.5 ML VIAL.NEB (ATROVENT) IH ONE (07:00)
[2017-05-04] MEDS ORDERED: MAGNESIUM SULFATE 1 GM in NS 50 ML IV ONE (07:00)
[2017-05-04] MEDS ORDERED: ALBUTEROL SULFATE 0.083% 2.5 MG/3 ML VIAL.NEB IH ONE (07:00)
[2017-05-04] MEDS ORDERED: methylPREDNISolone SOD SUCC/PF 62.5 MG/ML VIAL IVP ONE (07:00)
[2017-05-04] MEDS ORDERED: MAGNESIUM SULFATE 1 GM/2 ML VIAL ONE (07:05)
[2017-05-04] MEDS: NACL 0.9% 1,000 ML IV SCH ×2 (07:08→07:12)
[2017-05-04 07:24] LABS: HEMATOCRIT 46.2 % (36-48); HEMOGLOBIN 14.8 g/dL (12.0-16.0); MEAN CORPUSCULAR HEMOGLOBIN 28 pg (27-31); MEAN CORPUSCULAR HGB CONC 32 % (32-36); MEAN CORPUSCULAR VOLUME 88 fL (79.0-98.0); PLATELET COUNT (AUTO) 294 K/uL (130-430); RED BLOOD CELL COUNT(AUTO) 5.26 MIL/uL (4.2-6.2); RED CELL DISTRIBUTION WIDTH 14.2 % (9.0-15.0); WHITE BLOOD COUNT (AUTO) 9.4 K/uL (4.8-10.8)
[2017-05-04 07:34] LABS: CALCIUM 9.1 mg/dL (8.4-11.0); CREATININE 0.71 mg/dL (0.55-1.30); POTASSIUM 3.2 mmol/L (3.5-5.1)
[2017-05-04 07:45] LABS: PROTHROMBIN TIME 10.5 SECS (9.5-12.5)
[2017-05-04] MEDS ORDERED: POTASSIUM CHLORIDE 20 MEQ/PKT PACKET PO ONE (08:00)
[2017-05-04 08:13] LABS: ATYPICAL LYMPHOCYTES % 0 % (0-0); BAND % (MANUAL) 0 % (0-6); BASOPHILS % (MANUAL) 0 % (0-2); EOSINOPHILS % (MANUAL) 25 % (0-7); LYMPHOCYTES % (MANUAL) 29 % (20-46); MONOCYTES % (MANUAL) 10 % (0-11)
[2017-05-04] MEDS ORDERED: IPRATROPIUM/ALBUTEROL SULFATE 3 ML AMPUL.NEB INH PRN (09:30)
[2017-05-04] MEDS ORDERED: LORazepam 2 MG/ML VIAL IVP PRN (09:30)
[2017-05-04] MEDS: methylPREDNISolone SOD SUCC 40 MG/ML VIAL IVP SCH ×2 (09:55→20:55)
[2017-05-04] MEDS: LR 1,000 ML IV SCH ×2 (10:51→20:15)
[2017-05-04] MEDS: LEVOFLOXACIN 500 MG/D5W 100 ML IV SCH (11:55)
[2017-05-04 16:17] LABS: BARBITURATE, URINE NEGATIVE (NEG <=200); BENZODIAZEPINE, URINE NEGATIVE (NEG <=150); CANNABINOID, URINE NEGATIVE (NEG <=50); COCAINE, URINE NEGATIVE (NEG <=150); METHAMPHETAMINES SCREEN,URINE NEGATIVE (NEG <=500); OPIATE, URINE NEGATIVE (NEG <=100); PHENCYCLIDINE SCREEN,URINE NEGATIVE (NEG <=25); UR TRICYCLIC ANTIDEPRESSANTS NEGATIVE (NEG <=300); URINE AMPHETAMINE POSITIVE (NEG <=500); URINE METHADONE NEGATIVE (NEG <=200); URINE OXYCODONE SCREEN NEGATIVE (NEG <=100); URINE PROPOXYPHENE SCREEN NEGATIVE (NEG <=300)
[2017-05-04 18:35] LABS: BILIRUBIN,URINE NEGATIVE (NEGATIVE); BLOOD, URINE NEGATIVE (NEGATIVE); CLARITY/URINE HAZY (CLEAR); COLOR,URINE YELLOW (YELLOW); GLUCOSE,URINE NEGATIVE (NEGATIVE); KETONES,URINE NEGATIVE (NEGATIVE); LEUKOCYTE ESTERASE ,URINE TRACE (NEGATIVE); NITRITE, URINE POSITIVE (NEGATIVE); PH,URINE 6.5 (5.0-8.0); PROTEIN URINE NEGATIVE (NEGATIVE); UROBILINOGEN,URINE 0.2 (0.2-1.0)
[2017-05-04 18:38] LABS: BACTERIA,URINE MANY /HPF (None Seen); MUCUS,URINE None Seen /LPF (None Seen); RBC,URINE 0-3 /HPF (0-3)
[2017-05-05] MEDS: LR 1,000 ML IV SCH (06:01)
[2017-05-05 08:00] VITALS: BP_SYST 135
[2017-05-05] MEDS: methylPREDNISolone SOD SUCC 40 MG/ML VIAL IVP SCH ×2 (09:11→20:20)
[2017-05-05] MEDS: LEVOFLOXACIN 500 MG/D5W 100 ML IV SCH (10:47)
[2017-05-05 12:03] VITALS: BP_SYST 138
[2017-05-05 14:16] LABS: CALCIUM 8.6 mg/dL (8.4-11.0); CREATININE 0.67 mg/dL (0.55-1.30); POTASSIUM 4.6 mmol/L (3.5-5.1)
[2017-05-05 16:02] VITALS: BP_SYST 132
[2017-05-05 19:35] VITALS: BP_SYST 101
[2017-05-05 23:45] VITALS: BP_SYST 136
[2017-05-06] VITALS (7 sets, daily range): BP systolic 111–128
[2017-05-06 07:31] LABS: HEMATOCRIT 42.3 % (36-48); HEMOGLOBIN 13.7 g/dL (12.0-16.0); LYMPHOCYTES # (AUTO) 1.8 K/uL (1.0-5.5); MEAN CORPUSCULAR HEMOGLOBIN 29 pg (27-31); MEAN CORPUSCULAR HGB CONC 32 % (32-36); MEAN CORPUSCULAR VOLUME 90 fL (79.0-98.0); MONOCYTES # (AUTO) 0.6 K/uL (0.0-1.0); MONOCYTES % (AUTO) 3.1 % (1.7-9.3); NEUTROPHILS % (AUTO) 86.9 % (40.0-70.0); PLATELET COUNT (AUTO) 328 K/uL (130-430); RED CELL DISTRIBUTION WIDTH 14.6 % (9.0-15.0); WHITE BLOOD COUNT (AUTO) 18.4 K/uL (4.8-10.8)
[2017-05-06 07:48] LABS: ALBUMIN 3.2 g/dL (3.4-4.8); CALCIUM 8.3 mg/dL (8.4-11.0); CREATININE 0.6 mg/dL (0.55-1.30); POTASSIUM 4.2 mmol/L (3.5-5.1); TOTAL BILIRUBIN 0.2 mg/dL (0.0-1.0); TOTAL PROTEIN, SERUM 6.6 g/dL (6.4-8.3)
[2017-05-06] MEDS: methylPREDNISolone SOD SUCC 40 MG/ML VIAL IVP SCH ×3 (08:58→20:59)
[2017-05-06] MEDS: LEVOFLOXACIN 500 MG/D5W 100 ML IV SCH (10:43)
[2017-05-06] MEDS ORDERED: BUDESONIDE 0.5 MG/2 ML AMPUL.NEB INH ONE (14:00)
[2017-05-06] MEDS: IPRATROPIUM/ALBUTEROL SULFATE 3 ML AMPUL.NEB INH SCH ×3 (15:24→23:00)
[2017-05-06] MEDS ORDERED: MONTELUKAST 10 MG TABLET PO SCH (18:00)
[2017-05-06] MEDS: BUDESONIDE 0.5 MG/2 ML AMPUL.NEB INH SCH (19:00)
[2017-05-06] MEDS ORDERED: IBUPROFEN 600 MG TABLET PO PRN (20:30)
[2017-05-07] MEDS: methylPREDNISolone SOD SUCC 40 MG/ML VIAL IVP SCH ×2 (02:13→09:19)
[2017-05-07] MEDS: IPRATROPIUM/ALBUTEROL SULFATE 3 ML AMPUL.NEB INH SCH ×3 (03:00→11:00)
[2017-05-07 03:41] VITALS: BP_SYST 119
[2017-05-07] MEDS: BUDESONIDE 0.5 MG/2 ML AMPUL.NEB INH SCH (07:00)
[2017-05-07 07:45] VITALS: BP_SYST 121
[2017-05-07] MEDS ORDERED: MOME13HF2 INH ×2 (12:18→13:01)
[2017-05-07] MEDS ORDERED: ALBMDI INH ×2 (12:21→13:01)
[2017-05-07] MEDS: LEVOFLOXACIN 500 MG/D5W 100 ML IV SCH (12:24)
[2017-05-07] MEDS ORDERED: LEVO500T20 PO ×2 (12:56→13:02)
[2017-05-07] MEDS ORDERED: L.RH1CAP PO ×2 (12:56→13:02)
[2017-05-07] MEDS ORDERED: METH4TAB3 PO (12:57)
[2017-05-07] MEDS ORDERED: MED4 PO (13:03)
[2017-05-07 13:19] VITALS: BP_SYST 140
[2017-05-07 14:34] VITALS: BP_SYST 129
== END 2017-05-07 13:45 | disposition home or self-care (01) | DRG 720 ==
LOC: SED 06:46 → SMU 07:53
PROVIDERS: ADMIT Internal Medicine; ATTEND Internal Medicine
DX: A41.9 Sepsis, unspecified organism (principal); J44.0 Chronic obstructive pulmonary disease with (acute) lower respiratory infection; J44.1 Chronic obstructive pulmonary disease with (acute) exacerbation; J45.901 Unspecified asthma with (acute) exacerbation; K21.9 Gastro-esophageal reflux disease without esophagitis; J44.9 Chronic obstructive pulmonary disease, unspecified; J20.9 Acute bronchitis, unspecified; J45.909 Unspecified asthma, uncomplicated; E11.9 Type 2 diabetes mellitus without complications; G89.29 Other chronic pain; M54.2 Cervicalgia; F15.10 Other stimulant abuse, uncomplicated; E87.6 Hypokalemia; Z91.14 Patient's other noncompliance with medication regimen; Z88.8 Allergy status to other drugs, medicaments and biological substances; Z88.1 Allergy status to other antibiotic agents; Z91.041 Radiographic dye allergy status
CPT/HCPCS: 36415; 71010; 80048; 80053; 80307; 81000-TC; 83605; 83735-TC; 83880; 84484; 84703; 85007; 85025; 85027; 85610-TC; 85730-TC; 87040-TC; 87081; 87086; 93005; 94640; 96365; 96375; 99285; J1030; J1956; J2930; J3475; J7030; J7050; J7120

== ENCOUNTER 2017-06-08 10:14 | Emergency (ER) | payer MEDICAID ==
[~2017-06-08] VITALS: Ht 167.6 cm; Wt 47.6 kg
[2017-06-08 10:14] VITALS: BP_SYST 159
[~2017-06-08 10:14] MED LIST changes: +L.RH1CAP PO; +LEVO500T20 PO; +MED4 PO; +METH4TAB3 PO
[2017-06-08] MEDS ORDERED: NACL 0.9% 1,000 ML IV ONE (11:00)
[2017-06-08 12:06] LABS: BASOPHILS % (AUTO) 0.2 % (0.0-2.0); EOSINOPHILS % (AUTO) 8.9 % (0.0-4.0); HEMATOCRIT 43.1 % (36-48); HEMOGLOBIN 13.8 g/dL (12.0-16.0); LYMPHOCYTES # (AUTO) 1.9 K/uL (1.0-5.5); LYMPHOCYTES % (AUTO) 16.3 % (20.5-51.5); MEAN CORPUSCULAR HEMOGLOBIN 29 pg (27-31); MEAN CORPUSCULAR HGB CONC 32 % (32-36); MEAN CORPUSCULAR VOLUME 89 fL (79.0-98.0); MONOCYTES # (AUTO) 0.9 K/uL (0.0-1.0); MONOCYTES % (AUTO) 8.1 % (1.7-9.3); NEUTROPHILS # (AUTO) 7.7 K/uL (1.8-7.7); NEUTROPHILS % (AUTO) 66.5 % (40.0-70.0); PLATELET COUNT (AUTO) 382 K/uL (130-430); RED BLOOD CELL COUNT(AUTO) 4.82 MIL/uL (4.2-6.2); RED CELL DISTRIBUTION WIDTH 14.6 % (9.0-15.0); WHITE BLOOD COUNT (AUTO) 11.5 K/uL (4.8-10.8)
[2017-06-08 12:16] LABS: CALCIUM 9.7 mg/dL (8.4-11.0); CREATININE 0.77 mg/dL (0.55-1.30); POTASSIUM 4.6 mmol/L (3.5-5.1)
[2017-06-08 15:48] VITALS: BP_SYST 155
== END 2017-06-08 16:00 | disposition home or self-care (01) ==
LOC: SED 10:14
DX: E86.0 Dehydration (principal); F15.10 Other stimulant abuse, uncomplicated; J44.9 Chronic obstructive pulmonary disease, unspecified; E11.9 Type 2 diabetes mellitus without complications; K21.9 Gastro-esophageal reflux disease without esophagitis; F17.200 Nicotine dependence, unspecified, uncomplicated; Z88.4 Allergy status to anesthetic agent; Z88.8 Allergy status to other drugs, medicaments and biological substances; Z79.899 Other long term (current) drug therapy
CPT/HCPCS: 36415; 80048; 85025; 96360; 99284; J7030

== ENCOUNTER 2017-09-12 22:20 | Emergency (ER) | payer MEDICAID ==
[~2017-09-12] VITALS: Ht 165.1 cm; Wt 44.5 kg
--- NOTE | 2017-09-12 22:25 | NUR ---
Dr Del Cid notified of patient condition, VS WNL, mild wheezing noted, respirations even and unlabored.
[2017-09-12 22:29] VITALS: BP_SYST 140
--- NOTE | 2017-09-12 22:30 | NUR ---
Placed in room [address] monitor, blood pressure machine and pulse oximeter. To gown for exam. Side rails up. Report given to MARGARITO Johnson.
--- NOTE | 2017-09-12 22:35 | NUR ---
Patient alert and oriented x2. Patient initial vitals: BP 137/88, O2 at 95% RA, RR 25, Hr 102 and temp 98.4. Slight wheezes on bilateral lobes noted. Denies SOB at this time. Denies pain at this time. Will continue to monitor.
[2017-09-12] MEDS ORDERED: NACL 0.9% 1,000 ML IV ONE (23:30)
[2017-09-12] MEDS ORDERED: LORazepam 1 MG TABLET PO ONE (23:30)
--- NOTE | 2017-09-12 23:40 | NUR ---
# 22 gauge angiocath placed to left forearm. Use of asceptic technique. Opsite placed over site. Blood return noted. Blood for lab drawn from site. Flushed with 10 cc of normal saline. No evidence of infiltration noted. Patient tolerated well.
--- NOTE | 2017-09-12 23:45 | NUR ---
Patient feeling anxious and restless. Ativan given as ordered.
--- NOTE | 2017-09-13 | NUR ---
Patient stated she is hungry and has not eaten since last night. patient given sandwich.
--- NOTE | 2017-09-13 02:00 | NUR ---
Patient lying in bed with eyes closed, Rise and fall of chest noted. VS stable. No sign of distress noted.Will continue to monitor.
--- NOTE | 2017-09-13 03:00 | NUR ---
Patient lying in bed with eyes closed, Rise and fall of chest noted. VS stable. No sign of distress noted.Will continue to monitor
--- NOTE | 2017-09-13 04:30 | NUR ---
Patient lying in bed with eyes closed, Rise and fall of chest noted. VS stable. No sign of distress noted.Will continue to monitor
[2017-09-13 06:05] VITALS: BP_SYST 140
--- NOTE | 2017-09-13 06:05 | NUR ---
Patient given written and verbal discharge instructions and verbalizes understanding. ER MD discussed with patient the results and treatment provided. Patient in stable condition. ID arm band removed. IV catheter removed intact and dressing applied, no active bleeding. Patient denies pain. Opportunity for questions provided and answered.
== END 2017-09-13 06:05 | disposition home or self-care (01) ==
LOC: SED 22:20
DX: G92 Toxic encephalopathy (principal); T43.625A Adverse effect of amphetamines, initial encounter; J44.9 Chronic obstructive pulmonary disease, unspecified; E11.9 Type 2 diabetes mellitus without complications; K21.9 Gastro-esophageal reflux disease without esophagitis; Z88.4 Allergy status to anesthetic agent; Z88.8 Allergy status to other drugs, medicaments and biological substances; Z79.899 Other long term (current) drug therapy; Y92.89 Other specified places as the place of occurrence of the external cause
CPT/HCPCS: 82962; 96360; 99284; J7030

== ENCOUNTER 2018-01-07 04:40 | Emergency (ER) | payer MEDICAID ==
[~2018-01-07] VITALS: Ht 162.6 cm; Wt 46.7 kg
[2018-01-07 04:43] VITALS: BP_SYST 135
[2018-01-07] MEDS ORDERED: MIDAZOLAM HCL 5 MG/5 ML VIAL IM ONE (05:00)
[2018-01-07] MEDS ORDERED: KETAMINE HCL 500 MG/10 ML VIAL IM ONE (05:00)
[2018-01-07] MEDS ORDERED: IPRATROPIUM/ALBUTEROL SULFATE 3 ML AMPUL.NEB INH ONE (05:15)
[2018-01-07] MEDS ORDERED: PANTOPRAZOLE SODIUM 40 MG TAB PO ONE (07:15)
[2018-01-07] MEDS ORDERED: IBUPROFEN 800 MG TABLET PO ONE (07:15)
[2018-01-07 08:42] VITALS: BP_SYST 112
== END 2018-01-07 08:42 | disposition home or self-care (01) ==
LOC: SED 04:40
DX: S43.015A Anterior dislocation of left humerus, initial encounter (principal); J44.9 Chronic obstructive pulmonary disease, unspecified; K21.9 Gastro-esophageal reflux disease without esophagitis; M41.9 Scoliosis, unspecified; Z86.59 Personal history of other mental and behavioral disorders; Z79.899 Other long term (current) drug therapy; Z88.4 Allergy status to anesthetic agent; Z88.1 Allergy status to other antibiotic agents; Z88.8 Allergy status to other drugs, medicaments and biological substances; X58.XXXA Exposure to other specified factors, initial encounter; Y93.84 Activity, sleeping; Y92.89 Other specified places as the place of occurrence of the external cause; Y99.8 Other external cause status
CPT/HCPCS: 23650; 73020; 73030; 94640; 99152; 99285; J2250

== ENCOUNTER 2018-01-19 13:23 | Emergency (ER) | payer MEDICAID ==
[~2018-01-19] VITALS: Ht 170.2 cm; Wt 49.9 kg
[2018-01-19 13:36] VITALS: BP_SYST 119
[2018-01-19] MEDS ORDERED: NACL 0.9% 1,000 ML IV ONE (13:55)
[2018-01-19] MEDS ORDERED: ONDANSETRON HCL 4 MG/2 ML VIAL IVP ONE (14:00)
[2018-01-19] MEDS ORDERED: MORPHINE 4 MG/ML INJ. SYRINGE IVP ONE ×2 (14:00→14:45)
[2018-01-19 14:15] LABS: BILIRUBIN,URINE NEGATIVE (NEGATIVE); BLOOD, URINE NEGATIVE (NEGATIVE); CLARITY/URINE CLOUDY (CLEAR); COLOR,URINE YELLOW (YELLOW); GLUCOSE,URINE NEGATIVE (NEGATIVE); KETONES,URINE NEGATIVE (NEGATIVE); LEUKOCYTE ESTERASE ,URINE 1+ (NEGATIVE); NITRITE, URINE POSITIVE (NEGATIVE); PH,URINE 6.5 (5.0-8.0); PROTEIN URINE NEGATIVE (NEGATIVE); UROBILINOGEN,URINE 0.2 (0.2-1.0)
[2018-01-19 14:35] LABS: BACTERIA,URINE MANY /HPF (None Seen); BARBITURATE, URINE NEGATIVE (NEG <=200); BENZODIAZEPINE, URINE NEGATIVE (NEG <=150); CANNABINOID, URINE NEGATIVE (NEG <=50); COCAINE, URINE NEGATIVE (NEG <=150); METHAMPHETAMINES SCREEN,URINE NEGATIVE (NEG <=500); OPIATE, URINE NEGATIVE (NEG <=100); PHENCYCLIDINE SCREEN,URINE NEGATIVE (NEG <=25); RBC,URINE 0-3 /HPF (0-3); UR TRICYCLIC ANTIDEPRESSANTS NEGATIVE (NEG <=300); URINE AMPHETAMINE POSITIVE (NEG <=500); URINE METHADONE NEGATIVE (NEG <=200); URINE OXYCODONE SCREEN NEGATIVE (NEG <=100); URINE PROPOXYPHENE SCREEN NEGATIVE (NEG <=300)
[2018-01-19 14:36] LABS: MUCUS,URINE None Seen /LPF (None Seen)
[2018-01-19] MEDS ORDERED: DIPHENHYDRAMINE INJ 50 MG/ML VIAL IVP ONE (14:45)
[2018-01-19] MEDS ORDERED: cefTRIAXone 1 GM in D5W 50 ML IV ONE (14:45)
[2018-01-19] MEDS ORDERED: cefTRIAXone 1 GM VIAL ONE (14:50)
[2018-01-19] MEDS ORDERED: PROPOFOL DRIP 100 ML IV ONE (15:45)
[2018-01-19] MEDS ORDERED: PROPOFOL DRIP 100 ML IV SCH (16:00)
[2018-01-19 17:25] VITALS: BP_SYST 118
== END 2018-01-19 17:24 | disposition home or self-care (01) ==
LOC: SED 13:23
DX: S43.005A Unspecified dislocation of left shoulder joint, initial encounter (principal); N39.0 Urinary tract infection, site not specified; F15.10 Other stimulant abuse, uncomplicated; J44.9 Chronic obstructive pulmonary disease, unspecified; E11.9 Type 2 diabetes mellitus without complications; K21.9 Gastro-esophageal reflux disease without esophagitis; M41.9 Scoliosis, unspecified; Z86.59 Personal history of other mental and behavioral disorders; Z88.8 Allergy status to other drugs, medicaments and biological substances; Z88.4 Allergy status to anesthetic agent; Z79.899 Other long term (current) drug therapy; X58.XXXA Exposure to other specified factors, initial encounter; Y93.89 Activity, other specified; Y92.89 Other specified places as the place of occurrence of the external cause; Y99.8 Other external cause status
CPT/HCPCS: 23650; 71045; 73030; 80307; 81000; 87086; 87186; 96361; 96365; 96375; 96376; 99285; J0696; J1200; J2270; J2405; J2704; J7030; J7060

== ENCOUNTER 2018-02-01 19:06 | Emergency (ER) | payer MEDICAID ==
[~2018-02-01] VITALS: Ht 167.6 cm; Wt 40.8 kg
[2018-02-01 19:10] VITALS: BP_SYST 151
[2018-02-01 20:01] VITALS: BP_SYST 144
== END 2018-02-01 20:01 | disposition home or self-care (01) ==
LOC: SED 19:06
DX: M54.9 Dorsalgia, unspecified (principal); J44.9 Chronic obstructive pulmonary disease, unspecified; E11.9 Type 2 diabetes mellitus without complications; K21.9 Gastro-esophageal reflux disease without esophagitis; M41.9 Scoliosis, unspecified; Z76.0 Encounter for issue of repeat prescription; Z86.59 Personal history of other mental and behavioral disorders; Z88.4 Allergy status to anesthetic agent; Z88.0 Allergy status to penicillin; Z79.899 Other long term (current) drug therapy
CPT/HCPCS: 99283

== ENCOUNTER 2018-03-06 11:50 | Emergency (ER) | payer MEDICAID ==
[~2018-03-06] VITALS: Ht 167.6 cm; Wt 45.4 kg
[2018-03-06 11:55] VITALS: BP_SYST 101
[2018-03-06] MEDS ORDERED: ALBUTEROL SULFATE 0.083% 2.5 MG/3 ML VIAL.NEB IH ONE (12:45)
[2018-03-06] MEDS ORDERED: PREDNISONE 20 MG TABLET PO ONE (12:45)
[2018-03-06] MEDS ORDERED: IPRATROPIUM BROM 0.5 MG/2.5 ML VIAL.NEB (ATROVENT) IH ONE (12:45)
[2018-03-06 14:21] VITALS: BP_SYST 105
== END 2018-03-06 14:21 | disposition home or self-care (01) ==
LOC: SED 11:50
DX: J44.9 Chronic obstructive pulmonary disease, unspecified (principal); K21.9 Gastro-esophageal reflux disease without esophagitis; M41.9 Scoliosis, unspecified; E11.9 Type 2 diabetes mellitus without complications; Z88.4 Allergy status to anesthetic agent; Z88.8 Allergy status to other drugs, medicaments and biological substances; Z79.899 Other long term (current) drug therapy
CPT/HCPCS: 71046; 94640; 99284; J7512; J7613

== ENCOUNTER 2018-03-21 09:06 | Emergency (ER) | payer MEDICAID ==
[~2018-03-21] VITALS: Ht 154.9 cm; Wt 40.8 kg
[2018-03-21 09:06] VITALS: BP_SYST 135
--- NOTE | 2018-03-21 09:06 | NUR ---
Ambulatory with handcuffs in front accompanied by KelsieO to hallway
--- NOTE | 2018-03-21 09:31 | NUR ---
Pt moved to ER bed 4
--- NOTE | 2018-03-21 09:50 | NUR ---
Dr. Padron at bedside for evaluation
[2018-03-21 09:58] VITALS: BP_SYST 120
--- NOTE | 2018-03-21 09:58 | NUR ---
affirmative action officer given written and verbal discharge instructions and verbalizes understanding. ER MD discussed with patient the results and treatment provided. Patient in stable condition. ID arm band removed. No Rx given. Patient educated on pain management and to follow up with PMD. Pain Scale 0/10. Opportunity for questions provided and answered. Medication side effect fact sheet provided.
== END 2018-03-21 09:58 ==
LOC: SED 09:06
DX: Z02.89 Encounter for other administrative examinations (principal); R03.0 Elevated blood-pressure reading, without diagnosis of hypertension; K21.9 Gastro-esophageal reflux disease without esophagitis; J44.9 Chronic obstructive pulmonary disease, unspecified; F17.200 Nicotine dependence, unspecified, uncomplicated; E11.9 Type 2 diabetes mellitus without complications; Z86.59 Personal history of other mental and behavioral disorders; Z88.4 Allergy status to anesthetic agent; Z88.1 Allergy status to other antibiotic agents; Z79.899 Other long term (current) drug therapy
CPT/HCPCS: 99283

== ENCOUNTER 2018-05-26 10:36 | Emergency (ER) | payer MEDICAID ==
[~2018-05-26] VITALS: Ht 165.1 cm; Wt 38.6 kg
[2018-05-26 10:36] VITALS: BP_SYST 170
--- NOTE | 2018-05-26 10:36 | NUR ---
BROUGHT IN BY BED #5 AND TRIAGED. REPORT GIVEN TO VIOLETTE
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
[2018-05-26] MEDS ORDERED: NACL 0.9% 1,000 ML IV ONE (10:45)
[2018-05-26] MEDS ORDERED: LORazepam 2 MG/ML VIAL (FOR ER USE) IVP ONE (10:45)
--- NOTE | 2018-05-26 10:45 | NUR ---
DR CRUZ AT BEDSIDE FOR EVALUATION
--- NOTE | 2018-05-26 11:00 | NUR ---
Laboratory at bedside.
--- NOTE | 2018-05-26 11:05 | NUR ---
# 20 gauge angiocath placed to RIGHT FOREARM. Use of asceptic technique. Opsite placed over site. Blood return noted. Flushed with 10 cc of normal saline. No evidence of infiltration noted. Patient tolerated well.
[2018-05-26 11:13] LABS: BASOPHILS # (AUTO) 0.1 K/uL (0.0-0.2); BASOPHILS % (AUTO) 0.5 % (0.0-2.0); EOSINOPHILS % (AUTO) 0.1 % (0.0-4.0); HEMATOCRIT 41.6 % (36-48); HEMOGLOBIN 13.4 g/dL (12.0-16.0); LYMPHOCYTES # (AUTO) 0.8 K/uL (1.0-5.5); LYMPHOCYTES % (AUTO) 6.4 % (20.5-51.5); MEAN CORPUSCULAR HEMOGLOBIN 29 pg (27-31); MEAN CORPUSCULAR HGB CONC 32 % (32-36); MEAN CORPUSCULAR VOLUME 90 fL (79.0-98.0); MONOCYTES # (AUTO) 0.1 K/uL (0.0-1.0); MONOCYTES % (AUTO) 0.7 % (1.7-9.3); NEUTROPHILS # (AUTO) 10.8 K/uL (1.8-7.7); NEUTROPHILS % (AUTO) 92.3 % (40.0-70.0); PLATELET COUNT (AUTO) 415 K/uL (130-430); RED BLOOD CELL COUNT(AUTO) 4.62 MIL/uL (4.2-6.2); RED CELL DISTRIBUTION WIDTH 13.9 % (9.0-15.0); WHITE BLOOD COUNT (AUTO) 11.8 K/uL (4.8-10.8)
[2018-05-26 11:20] LABS: ANION GAP 11 (5-15); CALCIUM 9.6 mg/dL (8.4-11.0); CHLORIDE 101 mmol/L (98-107); CREATININE 0.83 mg/dL (0.55-1.30); GLUCOSE 149 mg/dL (70-99); POTASSIUM 3.5 mmol/L (3.5-5.1); SODIUM SERUM 136 mmol/L (136-145); UREA NITROGEN, BLOOD 21 mg/dL (8-21)
[2018-05-26 11:23] LABS: GFR AFRICAN AMERICAN 94 mL/min (>90)
[2018-05-26 11:24] LABS: ALANINE AMINOTRANSFERASE 49 U/L (12-78); ALBUMIN 4.3 g/dL (3.4-4.8); ASPARTATE AMINOTRANSFERASE 37 U/L (10-37); TOTAL BILIRUBIN 0.5 mg/dL (0.0-1.0)
[2018-05-26 11:29] LABS: ACETAMINOPHEN < 1 ug/mL (1-30); ALCOHOL, BLOOD < 3 mg/dL (<10)
--- NOTE | 2018-05-26 11:52 | NUR ---
Patient ripped off IV from Right Forearm. Patient found in room touching vital signs monitor. Pt instructed to return to [facility].
--- NOTE | 2018-05-26 11:58 | NUR ---
Security at bedside monitoring pt.
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
--- NOTE | 2018-05-26 13:57 | NUR ---
SPOKE WITH JI VILLAGRAN REGARDING MS MURCIA RUNNING OUT OF THE DOORS OF ER, PT IS NOT MEDICALLY CLEARED BY DR CRUZ, PT IS CONFUSED. JI VILLAGRAN STATE THAT THEY WILL SEND OUT A SQUAD CAR/METAL FABRICATOR. DESCRIPTION OF PT GIVEN TO .
== END 2018-05-26 13:45 | disposition left against medical advice (07) ==
LOC: SED 10:36
DX: F15.10 Other stimulant abuse, uncomplicated (principal); J44.9 Chronic obstructive pulmonary disease, unspecified; K21.9 Gastro-esophageal reflux disease without esophagitis; E11.9 Type 2 diabetes mellitus without complications; Z53.20 Procedure and treatment not carried out because of patient's decision for unspecified reasons; Z88.1 Allergy status to other antibiotic agents; Z91.041 Radiographic dye allergy status; Z79.899 Other long term (current) drug therapy
CPT/HCPCS: 36415; 80053; 85025; 93005; 96374; 99285; G0480; G0481; G0482; J2060; J7030

== ENCOUNTER 2018-06-16 18:46 | Emergency (ER) | payer MEDICAID ==
[~2018-06-16] VITALS: Ht 167.6 cm; Wt 31.8 kg
[2018-06-16 19:35] VITALS: BP_SYST 124
[2018-06-16] MEDS ORDERED: IPRATROPIUM BROM 0.5 MG/2.5 ML VIAL.NEB (ATROVENT) IH ONE ×2 (21:00→23:00)
[2018-06-16] MEDS ORDERED: ALBUTEROL SULFATE 0.083% 2.5 MG/3 ML VIAL.NEB IH ONE ×2 (21:00→23:00)
[2018-06-16] MEDS ORDERED: KETOROLAC TROMETHAMINE 60 MG/2 ML VIAL IM ONE (21:00)
[2018-06-16] MEDS ORDERED: PREDNISONE 20 MG TABLET PO ONE (21:00)
[2018-06-16] MEDS ORDERED: KETAMINE 30 MG/3 ML SYRINGE IVP ONE (21:30)
[2018-06-16] MEDS ORDERED: MORPHINE 4 MG/ML INJ. SYRINGE IVP ONE ×2 (22:00→23:15)
[2018-06-16] MEDS ORDERED: PROPOFOL DRIP 100 ML IV ONE (22:15)
[2018-06-16] MEDS ORDERED: KETAMINE 30 MG/3 ML SYRINGE ONE (22:16)
[2018-06-16 23:34] VITALS: BP_SYST 121
== END 2018-06-16 23:34 | disposition home or self-care (01) ==
LOC: SED 18:46
DX: M24.412 Recurrent dislocation, left shoulder (principal); E11.9 Type 2 diabetes mellitus without complications; K21.9 Gastro-esophageal reflux disease without esophagitis; J44.9 Chronic obstructive pulmonary disease, unspecified; F17.200 Nicotine dependence, unspecified, uncomplicated; Z88.1 Allergy status to other antibiotic agents; Z88.5 Allergy status to narcotic agent; Z79.899 Other long term (current) drug therapy
CPT/HCPCS: 23650; 71045; 73020; 94640; 96372; 96374; 99284; J1885; J2270; J2704; J7512; J7613

== ENCOUNTER 2018-07-18 19:00 | Emergency (ER) | payer MEDICAID ==
[~2018-07-18] VITALS: Ht 167.6 cm; Wt 52.2 kg
[2018-07-18 19:00] VITALS: BP_SYST 132
[2018-07-18 19:22] VITALS: BP_SYST 136
== END 2018-07-18 19:22 | disposition home or self-care (01) ==
LOC: SED 19:00
DX: Z02.89 Encounter for other administrative examinations (principal); J44.9 Chronic obstructive pulmonary disease, unspecified; E11.9 Type 2 diabetes mellitus without complications; K21.9 Gastro-esophageal reflux disease without esophagitis; G89.29 Other chronic pain; F17.200 Nicotine dependence, unspecified, uncomplicated; Z79.899 Other long term (current) drug therapy; Z88.1 Allergy status to other antibiotic agents; Z88.5 Allergy status to narcotic agent; Z91.048 Other nonmedicinal substance allergy status
CPT/HCPCS: 99283

== ENCOUNTER 2018-09-06 16:41 | Emergency (ER) | payer MEDICAID ==
[~2018-09-06] VITALS: Ht 157.5 cm; Wt 47.6 kg
[2018-09-06 16:50] VITALS: BP_SYST 157
[2018-09-06] MEDS ORDERED: KETAMINE 30 MG/3 ML SYRINGE IV ONE (17:30)
[2018-09-06] MEDS ORDERED: MIDAZOLAM HCL 5 MG/5 ML VIAL ONE (18:09)
[2018-09-06 19:37] VITALS: BP_SYST 152
[2018-09-11] MEDS ORDERED: MIDAZOLAM HCL 5 MG/5 ML VIAL IVP ONE (07:15)
== END 2018-09-06 19:37 | disposition home or self-care (01) ==
LOC: SED 16:41
DX: S43.005A Unspecified dislocation of left shoulder joint, initial encounter (principal); J44.9 Chronic obstructive pulmonary disease, unspecified; E11.9 Type 2 diabetes mellitus without complications; K21.9 Gastro-esophageal reflux disease without esophagitis; R03.0 Elevated blood-pressure reading, without diagnosis of hypertension; Z88.1 Allergy status to other antibiotic agents; Z88.8 Allergy status to other drugs, medicaments and biological substances; Z91.041 Radiographic dye allergy status; Z79.899 Other long term (current) drug therapy; X58.XXXA Exposure to other specified factors, initial encounter; Y93.89 Activity, other specified; Y92.89 Other specified places as the place of occurrence of the external cause; Y99.8 Other external cause status
CPT/HCPCS: 23650; 73020; 73030; 99151; 99285; J2250

== ENCOUNTER 2018-09-23 14:04 | Emergency (ER) | payer MEDICAID ==
[~2018-09-23] VITALS: Ht 167.6 cm; Wt 47.6 kg
[2018-09-23 14:48] VITALS: BP_SYST 127
[2018-09-23] MEDS: MORPHINE 4 MG/ML INJ. SYRINGE IVP ONE (18:15)
[2018-09-23] MEDS: ONDANSETRON HCL 4 MG/2 ML VIAL IVP ONE (18:16)
[2018-09-23] MEDS: PROPOFOL 200MG/ 20ML VIAL (DIPRIVAN) IV ONE (19:31)
[2018-09-23] MEDS: ACETAMINOPHEN/CODEINE 300 MG-30 MG TABLET PO ONE (19:52)
[2018-09-23 20:30] VITALS: BP_SYST 150
== END 2018-09-23 20:30 | disposition home or self-care (01) ==
LOC: SED 14:04
DX: S43.005A Unspecified dislocation of left shoulder joint, initial encounter (principal); K21.9 Gastro-esophageal reflux disease without esophagitis; J44.9 Chronic obstructive pulmonary disease, unspecified; E11.9 Type 2 diabetes mellitus without complications; Z88.1 Allergy status to other antibiotic agents; Z88.4 Allergy status to anesthetic agent; Z88.8 Allergy status to other drugs, medicaments and biological substances; Z79.899 Other long term (current) drug therapy; X58.XXXA Exposure to other specified factors, initial encounter; Y93.89 Activity, other specified; Y92.89 Other specified places as the place of occurrence of the external cause; Y99.8 Other external cause status
CPT/HCPCS: 23650; 73020; 73030; 96374; 96375; 99284; J2270; J2405; J2704; J7030

== ENCOUNTER 2018-09-27 07:21 | Emergency (ER) | payer MEDICAID ==
[~2018-09-27] VITALS: Ht 167.6 cm; Wt 47.6 kg
[2018-09-27 07:56] VITALS: BP_SYST 116
--- NOTE | 2018-09-27 08:05 | NUR ---
Patient to ER bed 4 to gown for evaluation. Side rails up. Report given to Arminda PIMENTEL.
--- NOTE | 2018-09-27 08:20 | NUR ---
PT STATES SHE DISLOCATED HER LEFT SHOULDER WHILE SLEEPING, PT HAS DONE THIS MANY TIMES BEFORE AND WELL KNOWN TO ER STAFF/DOCTORS. +RECENT USE OF METHAMPHETAMINES, PT IS HYPERVERBAL AND MOVING AROUND CONSTANTLY. EXPLAINED TO PT THAT WE WILL BE CHECKING PLACEMENT.
[2018-09-27] MEDS ORDERED: ETOMIDATE 20 MG/ 10 ML VIAL (AMIDATE) IVP ONE (09:30)
[2018-09-27] MEDS ORDERED: fentaNYL CITRATE/PF 100 MCG/2 ML AMP IVP ONE (09:30)
--- NOTE | 2018-09-27 10:10 | NUR ---
PT BEING PREPARED FOR PROCEDURAL SEDATION.
--- NOTE | 2018-09-27 10:11 | NUR ---
PLEASE SEE MODERATE SEDATION RECORD.
--- NOTE | 2018-09-27 11:04 | NUR ---
PT IS AWAKE, ALERT AND ORIENTED. REQUESTING MEAL TRAY, CALLED [facility] FOR TRAY. PT STILL MOVING ALL OVER BED. ENCOURAGED PT TO FOLLOW UP CHRISTINE WITH DR FOR SHOULDER ISSUES.
--- NOTE | 2018-09-27 11:21 | NUR ---
CALL PLACED TO GIN AT [phone] AND HE WILL BE COMING TO [facility]CELSIOR CUTTER PT.
--- NOTE | 2018-09-27 11:27 | NUR ---
KEYSHAWN WRAP AROUND LEFT SHOULDER HOLDING LEFT ARM IN PLACE, PT STILL MOVING ALL AROUND BED AND NOT BEING COMPLAINT WITH IMMOBILIZER.
[2018-09-27 11:33] VITALS: BP_SYST 128
--- NOTE | 2018-09-27 11:34 | NUR ---
Patient given written and verbal discharge instructions and verbalizes understanding. ER MD discussed with patient the results and treatment provided. Patient in stable condition. ID arm band removed. IV catheter removed intact and dressing applied, no active bleeding. Rx of TRAMADOL given. Patient educated on pain management and to follow up with PMD. Pain Scale 0/10. Opportunity for questions provided and answered. Medication side effect fact sheet provided.
== END 2018-09-27 11:33 | disposition home or self-care (01) ==
LOC: SED 07:21
DX: M24.412 Recurrent dislocation, left shoulder (principal); R03.0 Elevated blood-pressure reading, without diagnosis of hypertension; J44.9 Chronic obstructive pulmonary disease, unspecified; K21.9 Gastro-esophageal reflux disease without esophagitis; E11.9 Type 2 diabetes mellitus without complications; Z88.1 Allergy status to other antibiotic agents; Z88.5 Allergy status to narcotic agent; Z88.8 Allergy status to other drugs, medicaments and biological substances; Z79.899 Other long term (current) drug therapy
CPT/HCPCS: 23650; 73020; 73030; 99152; 99284; J3010; J3490; J7040

== ENCOUNTER 2018-12-11 08:56 | Emergency (ER) | payer MEDICAID ==
[~2018-12-11] VITALS: Ht 167.6 cm; Wt 47.6 kg
[2018-12-11 08:57] VITALS: BP_SYST 137
--- NOTE | 2018-12-11 09:00 | NUR ---
BROUGHT BACK TO BED #7 AND TRIAGED. REPORT GIVEN TO SINDHU
[2018-12-11] MEDS ORDERED: IPRATROPIUM BROM 0.5 MG/2.5 ML VIAL.NEB (ATROVENT) INH ONE ×3 (09:30→10:30)
[2018-12-11] MEDS ORDERED: ALBUTEROL SULFATE 0.083% 2.5 MG/3 ML VIAL.NEB INH ONE ×3 (09:30→10:30)
[2018-12-11] MEDS ORDERED: PREDNISONE 20 MG TABLET PO ONE (09:30)
--- NOTE | 2018-12-11 09:30 | NUR ---
ER Dr. Hawthorne at bedside examining patient.
--- NOTE | 2018-12-11 10:30 | NUR ---
Patient provided with meal tray.
[2018-12-11 11:02] VITALS: BP_SYST 127
--- NOTE | 2018-12-11 11:02 | NUR ---
Patient given written and verbal discharge instructions and verbalizes understanding. ER MD discussed with patient the results and treatment provided. Patient in stable condition. ID arm band removed Rx of SEREVENT, ALBUTEROL, PREDNSIONE given. Patient educated on pain management and to follow up with PMD. Pain Scale 0/10. Opportunity for questions provided and answered. Medication side effect fact sheet provided.
== END 2018-12-11 11:02 | disposition home or self-care (01) ==
LOC: SED 08:56
DX: J45.901 Unspecified asthma with (acute) exacerbation (principal); K21.9 Gastro-esophageal reflux disease without esophagitis; E11.9 Type 2 diabetes mellitus without complications; Z88.1 Allergy status to other antibiotic agents; Z88.4 Allergy status to anesthetic agent; Z88.8 Allergy status to other drugs, medicaments and biological substances; Z79.899 Other long term (current) drug therapy
CPT/HCPCS: 94664; 99283; J7512; J7613

== ENCOUNTER 2018-12-30 18:23 | Emergency (ER) | payer MEDICAID ==
[~2018-12-30] VITALS: Ht 180.3 cm; Wt 49.9 kg
[2018-12-30 18:29] VITALS: BP_SYST 167
[2018-12-30 21:53] VITALS: BP_SYST 145
== END 2018-12-30 21:53 | disposition home or self-care (01) ==
LOC: SED 18:23
DX: J45.909 Unspecified asthma, uncomplicated (principal); F31.0 Bipolar disorder, current episode hypomanic; R03.0 Elevated blood-pressure reading, without diagnosis of hypertension; K21.9 Gastro-esophageal reflux disease without esophagitis; E11.9 Type 2 diabetes mellitus without complications; Z88.1 Allergy status to other antibiotic agents; Z88.8 Allergy status to other drugs, medicaments and biological substances; Z88.4 Allergy status to anesthetic agent; Z79.899 Other long term (current) drug therapy
CPT/HCPCS: 99283

== ENCOUNTER 2019-01-05 20:04 | Emergency (ER) | payer MEDICAID ==
[~2019-01-05] VITALS: Ht 172.7 cm; Wt 52.2 kg
[2019-01-05] MEDS ORDERED: IPRATROPIUM/ALBUTEROL SULFATE 3 ML AMPUL.NEB (DUONEB) INH ONE (20:30)
[2019-01-05] MEDS ORDERED: methylPREDNISolone SOD SUCC/PF 62.5 MG/ML VIAL IM ONE (22:30)
== END 2019-01-05 23:00 | disposition home or self-care (01) ==
LOC: SED 20:04
DX: J45.901 Unspecified asthma with (acute) exacerbation (principal); E11.9 Type 2 diabetes mellitus without complications; K21.9 Gastro-esophageal reflux disease without esophagitis; F17.210 Nicotine dependence, cigarettes, uncomplicated; Z71.6 Tobacco abuse counseling; Z88.1 Allergy status to other antibiotic agents; Z88.8 Allergy status to other drugs, medicaments and biological substances; Z88.4 Allergy status to anesthetic agent; Z79.899 Other long term (current) drug therapy
CPT/HCPCS: 71045; 82962; 94640; 99283; J7620

== ENCOUNTER 2019-01-12 05:16 | Emergency (ER) | payer MEDICAID ==
[~2019-01-12] VITALS: Ht 167.6 cm; Wt 43.1 kg
[2019-01-12 05:25] VITALS: BP_SYST 119
[2019-01-12] MEDS ORDERED: methylPREDNISolone SOD SUCC/PF 62.5 MG/ML VIAL IM ONE (06:00)
[2019-01-12] MEDS ORDERED: IPRATROPIUM/ALBUTEROL SULFATE 3 ML AMPUL.NEB (DUONEB) INH ONE (06:00)
[2019-01-12 06:46] LABS: CALCIUM 8.9 mg/dL (8.4-11.0); CREATININE 0.51 mg/dL (0.55-1.30); POTASSIUM 3.3 mmol/L (3.5-5.1)
[2019-01-12 06:50] LABS: ALBUMIN 3.3 g/dL (3.4-4.8); TOTAL BILIRUBIN 0.5 mg/dL (0.0-1.0)
[2019-01-12 06:54] LABS: BASOPHILS # (AUTO) 0.1 K/uL (0.0-0.2); BASOPHILS % (AUTO) 0.7 % (0.0-2.0); EOSINOPHILS # (AUTO) 1.7 K/uL (0.0-0.4); EOSINOPHILS % (AUTO) 17.8 % (0.0-4.0); HEMATOCRIT 40.4 % (36-48); LYMPHOCYTES # (AUTO) 2.7 K/uL (1.0-5.5); LYMPHOCYTES % (AUTO) 28.1 % (20.5-51.5); MEAN CORPUSCULAR HEMOGLOBIN 28 pg (27-31); MEAN CORPUSCULAR HGB CONC 32 % (32-36); MEAN CORPUSCULAR VOLUME 87 fL (79.0-98.0); MONOCYTES # (AUTO) 0.9 K/uL (0.0-1.0); MONOCYTES % (AUTO) 9.3 % (1.7-9.3); NEUTROPHILS # (AUTO) 4.2 K/uL (1.8-7.7); NEUTROPHILS % (AUTO) 44.1 % (40.0-70.0); PLATELET COUNT (AUTO) 355 K/uL (130-430); RED BLOOD CELL COUNT(AUTO) 4.63 MIL/uL (4.2-6.2); RED CELL DISTRIBUTION WIDTH 14.5 % (9.0-15.0); WHITE BLOOD COUNT (AUTO) 9.5 K/uL (4.8-10.8)
[2019-01-12 08:20] VITALS: BP_SYST 119
== END 2019-01-12 08:25 | disposition home or self-care (01) ==
LOC: SED 05:16
DX: S43.005A Unspecified dislocation of left shoulder joint, initial encounter (principal); J44.1 Chronic obstructive pulmonary disease with (acute) exacerbation; K21.9 Gastro-esophageal reflux disease without esophagitis; E11.9 Type 2 diabetes mellitus without complications; Z88.4 Allergy status to anesthetic agent; Z88.8 Allergy status to other drugs, medicaments and biological substances; Z79.899 Other long term (current) drug therapy; X58.XXXA Exposure to other specified factors, initial encounter; Y93.89 Activity, other specified; Y92.89 Other specified places as the place of occurrence of the external cause; Y99.8 Other external cause status
CPT/HCPCS: 36415; 71045; 80053; 83880; 84484; 85025; 93005; 94640; 96372; 99284; J2930; J7620; 99283

== ENCOUNTER 2019-02-17 07:56 | Emergency (ER) | payer MEDICAID ==
[~2019-02-17] VITALS: Ht 167.6 cm; Wt 45.4 kg
[2019-02-17 08:11] VITALS: BP_SYST 127
[2019-02-17] MEDS ORDERED: ALBUTEROL SULFATE 0.083% 2.5 MG/3 ML VIAL.NEB INH ONE (08:45)
[2019-02-17] MEDS ORDERED: IPRATROPIUM BROM 0.5 MG/2.5 ML VIAL.NEB (ATROVENT) INH ONE (08:45)
[2019-02-17] MEDS ORDERED: PREDNISONE 20 MG TABLET PO ONE (08:45)
[2019-02-17 11:39] VITALS: BP_SYST 127
== END 2019-02-17 11:41 | disposition home or self-care (01) ==
LOC: SED 07:56
DX: J44.1 Chronic obstructive pulmonary disease with (acute) exacerbation (principal); E11.9 Type 2 diabetes mellitus without complications; K21.9 Gastro-esophageal reflux disease without esophagitis; R03.0 Elevated blood-pressure reading, without diagnosis of hypertension; Z88.6 Allergy status to analgesic agent; Z88.8 Allergy status to other drugs, medicaments and biological substances; Z79.899 Other long term (current) drug therapy; Z87.891 Personal history of nicotine dependence
CPT/HCPCS: 94640; 99283; J7512; J7613

== ENCOUNTER 2019-04-17 09:59 | Emergency (ER) | payer MEDICAID ==
[~2019-04-17] VITALS: Ht 165.1 cm; Wt 41.7 kg
[2019-04-17 10:03] VITALS: BP_SYST 130
--- NOTE | 2019-04-17 10:08 | NUR ---
AMBULATED TO BED 8
--- NOTE | 2019-04-17 10:20 | NUR ---
PATIENT CAME IN COMPLAINING OF COUGH. PATIENT STATES SHE HAS A DEHYDRATING PROBLEM AND THAT SHE NEEDS FOOD AND STERIODS. PATIENT SITTING IN BED DRINKING COKE SODA. PATIENT STATES SHE IS TIRED AND WANTS TO HURRY UP AND LEAVE. PATIENT STATES ALL SHE WANTS IS FOOD AND RX. PATIENT TALKING NONSTOP AND TO SELF. PATIENT ALERT AND ORIENTED X4.
--- NOTE | 2019-04-17 10:44 | NUR ---
ER Dr. ADAMS at bedside examining patient.
--- NOTE | 2019-04-17 10:50 | NUR ---
PATIENT GETTING X RAY IN BED.
[2019-04-17] MEDS ORDERED: PREDNISONE 20 MG TABLET PO ONE (11:00)
[2019-04-17] MEDS ORDERED: IPRATROPIUM/ALBUTEROL SULFATE 3 ML AMPUL.NEB (DUONEB) INH ONE (11:00)
--- NOTE | 2019-04-17 11:27 | NUR ---
Patient given written and verbal discharge instructions and verbalizes understanding. ER MD discussed with patient the results and treatment provided. Patient in stable condition. ID arm band removed. Rx of NORCO, VENTOLIN, DULERA, PREDNISONE, AND CLARITIN given. Patient educated on pain management and to follow up with PMD. Pain Scale 0/10. Opportunity for questions provided and answered. Medication side effect fact sheet provided.
[2019-04-17 11:28] VITALS: BP_SYST 130
== END 2019-04-17 11:27 | disposition home or self-care (01) ==
LOC: SED 09:59
DX: J44.1 Chronic obstructive pulmonary disease with (acute) exacerbation (principal); E11.9 Type 2 diabetes mellitus without complications; K21.9 Gastro-esophageal reflux disease without esophagitis; Z88.1 Allergy status to other antibiotic agents; Z88.4 Allergy status to anesthetic agent; Z79.899 Other long term (current) drug therapy; Z91.048 Other nonmedicinal substance allergy status
CPT/HCPCS: 71045; 94640; 99283; J7512; J7620

== ENCOUNTER 2019-04-20 08:13 | Emergency (ER) | payer MEDICAID ==
[~2019-04-20] VITALS: Ht 167.6 cm; Wt 42.2 kg
[2019-04-20 08:13] VITALS: BP_SYST 138
[2019-04-20 08:47] VITALS: BP_SYST 138
== END 2019-04-20 08:39 | disposition home or self-care (01) ==
LOC: SED 08:13
DX: J44.1 Chronic obstructive pulmonary disease with (acute) exacerbation (principal); F12.90 Cannabis use, unspecified, uncomplicated; F15.90 Other stimulant use, unspecified, uncomplicated; F17.210 Nicotine dependence, cigarettes, uncomplicated; E11.9 Type 2 diabetes mellitus without complications; Z79.899 Other long term (current) drug therapy; Z88.8 Allergy status to other drugs, medicaments and biological substances
CPT/HCPCS: 99283

== ENCOUNTER 2019-05-09 20:47 | Emergency (ER) | payer MEDICAID ==
[~2019-05-09] VITALS: Ht 167.6 cm; Wt 45.4 kg
[2019-05-09 20:52] VITALS: BP_SYST 114
[2019-05-09] MEDS ORDERED: methylPREDNISolone SOD SUCC/PF 62.5 MG/ML VIAL IVP ONE (21:15)
[2019-05-09] MEDS ORDERED: IPRATROPIUM/ALBUTEROL SULFATE 3 ML AMPUL.NEB (DUONEB) INH ONE ×2 (21:15→22:00)
[2019-05-09] MEDS ORDERED: methylPREDNISolone SOD SUCC/PF 62.5 MG/ML VIAL IM ONE (21:30)
[2019-05-09 21:42] LABS: BASOPHILS % (AUTO) 0.3 % (0.0-2.0); EOSINOPHILS # (AUTO) 1.8 K/uL (0.0-0.4); EOSINOPHILS % (AUTO) 22.1 % (0.0-4.0); HEMATOCRIT 44.5 % (36-48); HEMOGLOBIN 14.4 g/dL (12.0-16.0); LYMPHOCYTES # (AUTO) 2.4 K/uL (1.0-5.5); LYMPHOCYTES % (AUTO) 29.9 % (20.5-51.5); MEAN CORPUSCULAR HEMOGLOBIN 29 pg (27-31); MEAN CORPUSCULAR HGB CONC 32 % (32-36); MEAN CORPUSCULAR VOLUME 91 fL (79.0-98.0); MONOCYTES # (AUTO) 0.7 K/uL (0.0-1.0); MONOCYTES % (AUTO) 8.5 % (1.7-9.3); NEUTROPHILS # (AUTO) 3.2 K/uL (1.8-7.7); NEUTROPHILS % (AUTO) 39.2 % (40.0-70.0); PLATELET COUNT (AUTO) 294 K/uL (130-430); RED BLOOD CELL COUNT(AUTO) 4.89 MIL/uL (4.2-6.2); RED CELL DISTRIBUTION WIDTH 15.9 % (9.0-15.0); WHITE BLOOD COUNT (AUTO) 8.1 K/uL (4.8-10.8)
[2019-05-09 22:48] VITALS: BP_SYST 132
== END 2019-05-09 22:48 | disposition home or self-care (01) ==
LOC: SED 20:47
DX: J45.901 Unspecified asthma with (acute) exacerbation (principal); K21.9 Gastro-esophageal reflux disease without esophagitis; E11.9 Type 2 diabetes mellitus without complications; Z88.4 Allergy status to anesthetic agent; Z88.8 Allergy status to other drugs, medicaments and biological substances; Z91.048 Other nonmedicinal substance allergy status; Z79.899 Other long term (current) drug therapy
CPT/HCPCS: 36415; 71045; 83880; 85025; 93005; 94640; 96372; 99284; J2930; J7620

== ENCOUNTER 2019-05-19 04:30 | Inpatient (IN) | payer MEDICAID ==
[~2019-05-19] VITALS: Ht 167.6 cm; Wt 44.5 kg
[2019-05-19 04:30] VITALS: BP_SYST 117
--- NOTE | 2019-05-19 04:35 | NUR ---
Patient to ER bed 5 to gown for evaluation. Patient refuses to gown. Side rails up.
--- NOTE | 2019-05-19 04:40 | NUR ---
Patient arrives from home with complaints of progressively worsening cough for 2 weeks. States she has phelgm white in color to yellowish. Denies any chest pain, chills, n/v, or fever. Patient is ambulatory with a steady gait.
--- NOTE | 2019-05-19 04:42 | NUR ---
ER at bedside attempting examine the patient. Patient being uncooperative and aggressive.
[2019-05-19 05:06] LABS: BASOPHILS % (AUTO) 0.5 % (0.0-2.0); EOSINOPHILS # (AUTO) 1.3 K/uL (0.0-0.4); EOSINOPHILS % (AUTO) 17.1 % (0.0-4.0); HEMATOCRIT 44.5 % (36-48); HEMOGLOBIN 14.6 g/dL (12.0-16.0); LYMPHOCYTES # (AUTO) 1.7 K/uL (1.0-5.5); LYMPHOCYTES % (AUTO) 21.5 % (20.5-51.5); MEAN CORPUSCULAR HEMOGLOBIN 30 pg (27-31); MEAN CORPUSCULAR HGB CONC 33 % (32-36); MEAN CORPUSCULAR VOLUME 90 fL (79.0-98.0); MONOCYTES # (AUTO) 0.8 K/uL (0.0-1.0); MONOCYTES % (AUTO) 9.6 % (1.7-9.3); NEUTROPHILS % (AUTO) 51.3 % (40.0-70.0); PLATELET COUNT (AUTO) 342 K/uL (130-430); RED BLOOD CELL COUNT(AUTO) 4.93 MIL/uL (4.2-6.2); RED CELL DISTRIBUTION WIDTH 14.8 % (9.0-15.0); WHITE BLOOD COUNT (AUTO) 7.8 K/uL (4.8-10.8)
--- NOTE | 2019-05-19 05:10 | NUR ---
ER at bedside examining patient. Patient is cooperative.
[2019-05-19 05:18] LABS: CALCIUM 8.9 mg/dL (8.4-11.0); CHLORIDE 108 mmol/L (98-107); CREATININE 0.68 mg/dL (0.55-1.30); GLUCOSE 84 mg/dL (70-99); POTASSIUM 3.2 mmol/L (3.5-5.1); SODIUM SERUM 141 mmol/L (136-145); UREA NITROGEN, BLOOD 20 mg/dL (8-21)
[2019-05-19 05:19] LABS: BILIRUBIN,URINE NEGATIVE (NEGATIVE); BLOOD, URINE NEGATIVE (NEGATIVE); CLARITY/URINE CLEAR (CLEAR); COLOR,URINE YELLOW (YELLOW); GLUCOSE,URINE NEGATIVE (NEGATIVE); KETONES,URINE NEGATIVE (NEGATIVE); LEUKOCYTE ESTERASE ,URINE 1+ (NEGATIVE); NITRITE, URINE NEGATIVE (NEGATIVE); PH,URINE 5.5 (5.0-8.0); PROTEIN URINE NEGATIVE (NEGATIVE)
--- NOTE | 2019-05-19 05:20 | NUR ---
# 20 gauge angiocath placed to RIGHT Forearm. Use of asceptic technique. Opsite placed over site. Blood return noted. Blood for lab drawn from site. Flushed with 10 cc of normal saline. No evidence of infiltration noted. Patient tolerated well.
[2019-05-19] MEDS ORDERED: methylPREDNISolone SOD SUCC/PF 62.5 MG/ML VIAL IVP ONE (05:30)
[2019-05-19] MEDS ORDERED: IPRATROPIUM/ALBUTEROL SULFATE 3 ML AMPUL.NEB (DUONEB) INH ONE ×3 (05:30)
[2019-05-19] MEDS ORDERED: FAMOTIDINE PF 20 MG/2 ML VIAL IVP ONE (05:30)
[2019-05-19 05:31] LABS: ALANINE AMINOTRANSFERASE 30 U/L (12-78); ALBUMIN 3.7 g/dL (3.4-4.8); ALCOHOL, BLOOD 16 mg/dL (<10); ASPARTATE AMINOTRANSFERASE 27 U/L (10-37); TOTAL BILIRUBIN 0.3 mg/dL (0.0-1.0)
[2019-05-19 05:32] LABS: BACTERIA,URINE FEW /HPF (None Seen); RBC,URINE 0-3 /HPF (0-3)
[2019-05-19 05:33] LABS: ANION GAP < 3 (5-15); GFR AFRICAN AMERICAN 118 mL/min (>90)
[2019-05-19] MEDS ORDERED: cefTRIAXone 1 GM IVPB PREMIX 50 ML IV ONE (06:30)
[2019-05-19] MEDS ORDERED: IPRATROPIUM/ALBUTEROL SULFATE 3 ML AMPUL.NEB (DUONEB) INH PRN (06:45)
--- NOTE | 2019-05-19 06:53 | NUR ---
Patient will be admitted to care of Omar Britton. Admitted to [facility] unit. Will go to room 105A. Belongings list completed. Summary report printed. Report will be given at bedside.
--- NOTE | 2019-05-19 07:06 | NUR ---
Medication reconciliation completed with information provided by patient. Any prior medication reconciliation on file was reviewed and corrected.
--- NOTE | 2019-05-19 07:13 | NUR ---
PATIENT RESTING IN BED, ALERT AND ORIENTED X4. PATIENT EATING CHICKEN. PATIENT IN STABLE CONDITION FOR TRANSFER TO [facility].
--- NOTE | 2019-05-19 07:22 | NUR ---
Transfer to [facility]. IV present no sign or symptom of infiltration.
--- NOTE | 2019-05-19 07:26 | NUR ---
REPORT WAS GIVEN TO AN SUNINA AT BEDSIDE.
--- NOTE | 2019-05-19 07:35 | NUR ---
Admission Note Received patient from ER with diagnosis of ASTHMA/COPD EXACERBATION. Initial Plan of Care discussed-patient verbalized understanding. . Oriented to room, call light, pain management and safety.
[2019-05-19 07:45] VITALS: BP_SYST 121
[2019-05-19] MEDS: IPRATROPIUM/ALBUTEROL SULFATE 3 ML AMPUL.NEB (DUONEB) INH SCH ×5 (07:45→23:00)
[2019-05-19 07:48] VITALS: BP_SYST 149
--- NOTE | 2019-05-19 10:00 | NUR ---
rounds pt stable denies any pain or sob. seen by dr burris.new order received.notin acute distress. safety precautions maintained. will continue to monitor
[2019-05-19] MEDS: NICOTINE 21 MG/24 HR PATCH.TD24 TD SCH (10:11)
[2019-05-19] MEDS ORDERED: POTASSIUM CHLORIDE 40 MEQ in NS 250 ML IV ONE (11:15)
[2019-05-19 11:25] VITALS: BP_SYST 115
--- NOTE | 2019-05-19 12:30 | NUR ---
rounds pt stable denies any pain or sob. resting comfortably.notin acute distress. safety precautions maintained. will continue to monitor
[2019-05-19 13:57] LABS: BARBITURATE, URINE NEGATIVE (NEG <=200); BENZODIAZEPINE, URINE NEGATIVE (NEG <=150); CANNABINOID, URINE NEGATIVE (NEG <=50); COCAINE, URINE NEGATIVE (NEG <=150); METHAMPHETAMINES SCREEN,URINE NEGATIVE (NEG <=500); OPIATE, URINE NEGATIVE (NEG <=100); PHENCYCLIDINE SCREEN,URINE NEGATIVE (NEG <=25); UR TRICYCLIC ANTIDEPRESSANTS NEGATIVE (NEG <=300); URINE AMPHETAMINE NEGATIVE (NEG <=500); URINE METHADONE NEGATIVE (NEG <=200); URINE OXYCODONE SCREEN NEGATIVE (NEG <=100); URINE PROPOXYPHENE SCREEN NEGATIVE (NEG <=300)
[2019-05-19 15:42] VITALS: BP_SYST 133
--- NOTE | 2019-05-19 16:30 | NUR ---
rounds pt stable denies any pain or sob. resting comfortably.notin acute distress. safety precautions maintained .assisted pt to bathroom. not in acute distres. will continue to monitor
[2019-05-19] MEDS: methylPREDNISolone SOD SUCC/PF 62.5 MG/ML VIAL IVP SCH ×2 (17:20→22:04)
--- NOTE | 2019-05-19 19:15 | NUR ---
closing notes pt stable denies any pain or sob. resting comfortably.notin acute distress. safety precautions maintained. call light within reach.needs attended will endorse to maintenance supervisor 2nd shift
--- NOTE | 2019-05-19 19:24 | NUR ---
OPENING NOTES Pt is awake, alert, oriented and lying in bed. Pt on O2 inhalation at 2L via nasal cannula. No complains of pain or discomfort at this time. No signs of acute distress or SOB noted. Encouraged to use call light when needed. Safety precautions in place with 3 side rails up, wheels locked, bed alarm on and in lowest level. Call light with pt. Will continue to monitor.
[2019-05-19 20:05] VITALS: BP_SYST 139
[2019-05-19] MEDS ORDERED: cefTRIAXone 1 GM in D5W 50 ML IV SCH (21:00)
[2019-05-19] MEDS: MORPHINE 2 MG/ML INJ. SYRINGE IVP PRN (22:11)
--- NOTE | 2019-05-19 22:11 | NUR ---
PAIN MED Pt complained of generalized body pain with a scale of 8/10. Morphine 1mg IVP given as ordered. Educated pt on safety and side effects like dizziness, pt verbalized understanding. No signs of acute distress noted. Safety precautions in place and call light with pt. Will continue to monitor.
[2019-05-20 00:34] VITALS: BP_SYST 159
--- NOTE | 2019-05-20 01:00 | NUR ---
ROUNDS Pt is resting in bed with both eyes closed, with visible chest rise and fall with non-labored breathing noted. No complains of pain and no signs of acute distress noted. Safety precautions in place and call light with pt. Will continue to monitor.
[2019-05-20] MEDS: IPRATROPIUM/ALBUTEROL SULFATE 3 ML AMPUL.NEB (DUONEB) INH SCH ×3 (03:00→11:00)
--- NOTE | 2019-05-20 04:20 | NUR ---
ROUNDS Pt is resting in bed with both eyes closed, with visible chest rise and fall with non-labored breathing noted. Pt is easily arousable. No signs of acute distress noted. No needs at this time. Safety precautions in place and call light with pt. Will continue to monitor.
[2019-05-20] MEDS: methylPREDNISolone SOD SUCC 40 MG/ML VIAL IVP SCH ×2 (05:11→14:32)
--- NOTE | 2019-05-20 06:37 | NUR ---
CLOSING NOTES Pt is resting in bed with both eyes closed, with visible chest rise and fall with non-labored breathing noted. No complains of pain or discomfort at this time. No signs of acute distress or SOB noted. All needs attended throughout the shift. Safety precautions in place with 3 side rails up, wheels locked, bed alarm on and in lowest level. Call light with pt. Will endorse to day shift nurse.
[2019-05-20 06:46] LABS: BASOPHILS % (AUTO) 0.1 % (0.0-2.0); HEMATOCRIT 41.7 % (36-48); HEMOGLOBIN 13.6 g/dL (12.0-16.0); LYMPHOCYTES % (AUTO) 7.4 % (20.5-51.5); MEAN CORPUSCULAR HEMOGLOBIN 29 pg (27-31); MEAN CORPUSCULAR HGB CONC 33 % (32-36); MEAN CORPUSCULAR VOLUME 90 fL (79.0-98.0); MONOCYTES # (AUTO) 0.3 K/uL (0.0-1.0); MONOCYTES % (AUTO) 2.5 % (1.7-9.3); NEUTROPHILS # (AUTO) 12.1 K/uL (1.8-7.7); PLATELET COUNT (AUTO) 347 K/uL (130-430); RED BLOOD CELL COUNT(AUTO) 4.63 MIL/uL (4.2-6.2); RED CELL DISTRIBUTION WIDTH 14.8 % (9.0-15.0); WHITE BLOOD COUNT (AUTO) 13.5 K/uL (4.8-10.8)
[2019-05-20 07:04] LABS: CREATININE 0.58 mg/dL (0.55-1.30); POTASSIUM 4.4 mmol/L (3.5-5.1)
[2019-05-20 07:40] VITALS: BP_SYST 140
--- NOTE | 2019-05-20 08:15 | NUR ---
CONSULTATION: REASON FOR CONSULT: COPD EXAC CONSULTING PHYSICIAN: JUAN FIGUEROA MD ORDERED BY: J CARLOS HINOJOSA DO SPOKE WITH: MYNOR FIGUEROA IS OUT UNTIL 05-25-19 DR CORDOBA IS COVERING [phone]
--- NOTE | 2019-05-20 08:30 | NUR ---
OPENING NOTES, RECEIVED PT IN BED, PT IS AAOX4, DENIES PAIN, NO SOB, PT IS WHEEZING. NO FEVER. SAFETY PRECAUTION IN PLACE. CALL LIGHT IN REACH. BED IN LOW POSITION, ENCOURAGED PT TO CALL FOR ASSIST AND PAIN MEDS. WILL CONT TO MONITOR.
[2019-05-20] MEDS: NICOTINE 21 MG/24 HR PATCH.TD24 TD SCH (08:41)
[2019-05-20] MEDS: MORPHINE 2 MG/ML INJ. SYRINGE IVP PRN (08:55)
[2019-05-20] MEDS ORDERED: LORATADINE 10 MG TABLET PO SCH (09:00)
[2019-05-20] MEDS ORDERED: FAMOTIDINE 20 MG TABLET PO SCH (09:00)
--- NOTE | 2019-05-20 09:54 | NUR ---
Nutrition Update Rafael Scale 18 noted. Pt admitted for asthma, COPD exacerbation. Diet: regular BMI: 15.8 kg/m2 RD to follow per nutrition care standards.
--- NOTE | 2019-05-20 10:29 | NUR ---
SS note: SPANISH INTERPRETER attempted to meet with pt for discharge plan assessment and community resources. Pt was trying to sleep and wishes to be seen some other time. SS will follow up.
[2019-05-20 12:00] VITALS: BP_SYST 148
--- NOTE | 2019-05-20 14:54 | NUR ---
paged dr yee to get dc order, pt stated she wants to go home now. called back , said he wants to dc patient tomorrow and she needs to be seen by pulmo.
[2019-05-20 15:24] VITALS: BP_SYST 125
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
--- NOTE | 2019-05-20 16:30 | NUR ---
patient signed ama and left at 1540. pt encouraged to stay as she needs to be seen by joleen fitzpatrick and may need prescription before dc. pt stated she needs to attend to very important matter. pt stated that in case she feels worst she will go again to e.r.
--- NOTE | 2019-05-21 10:01 | NUR ---
Resource: Pt left AMA, bus pass returned.
== END 2019-05-20 15:40 | disposition left against medical advice (07) | DRG 140 ==
LOC: SED 04:30 → SMU 06:32
PROVIDERS: ADMIT Family Medicine; ATTEND Family Medicine
DX: J44.1 Chronic obstructive pulmonary disease with (acute) exacerbation (principal); N17.0 Acute kidney failure with tubular necrosis; R65.11 Systemic inflammatory response syndrome (SIRS) of non-infectious origin with acute organ dysfunction; N39.0 Urinary tract infection, site not specified; E87.6 Hypokalemia; G89.4 Chronic pain syndrome; I10 Essential (primary) hypertension; Z53.21 Procedure and treatment not carried out due to patient leaving prior to being seen by health care provider; Z88.8 Allergy status to other drugs, medicaments and biological substances; Z79.899 Other long term (current) drug therapy; Z56.0 Unemployment, unspecified
CPT/HCPCS: 36415; 71045; 73030; 80048; 80053; 80307; 81000-TC; 83605; 83735-TC; 84100-TC; 84484; 85025; 87040-TC; 87086; 87186-TC; 93005; 94640; 94760; 96372; 99285; G0482; J0696; J1030; J2270; J2930; J3480; J3490; J7050; J7060; J7620

== ENCOUNTER 2019-05-21 12:21 | Emergency (ER) | payer MEDICAID ==
[~2019-05-21] VITALS: Ht 167.6 cm; Wt 45.4 kg
[2019-05-21 12:21] VITALS: BP_SYST 162
[~2019-05-21 12:21] MED LIST changes: -LEVO500T20 PO; -METH4TAB3 PO
--- NOTE | 2019-05-21 12:21 | NUR ---
BROUGHT BACK TO BED #8 AND TRIAGED, REPORT GIVEN TO MADI
--- NOTE | 2019-05-21 12:23 | NUR ---
DR ROME AT BEDSIDE FOR EVALUATION
--- NOTE | 2019-05-21 12:44 | NUR ---
RESPIRATORY AT BEDSIDE FOR TREATMENT
[2019-05-21] MEDS ORDERED: IPRATROPIUM BROM 0.5 MG/2.5 ML VIAL.NEB (ATROVENT) IH ONE ×2 (12:45→14:30)
[2019-05-21] MEDS ORDERED: ALBUTEROL SULFATE 0.083% 2.5 MG/3 ML VIAL.NEB IH ONE ×2 (12:45→14:30)
[2019-05-21] MEDS ORDERED: methylPREDNISolone SOD SUCC/PF 62.5 MG/ML VIAL IM ONE (12:45)
[2019-05-21] MEDS ORDERED: ALBUTEROL SULFATE 0.083% 2.5 MG/3 ML VIAL.NEB INH ONE (13:05)
--- NOTE | 2019-05-21 13:05 | NUR ---
Patient presented to ER with wheezing. Patient A&Ox4, afebrile, skin pink, ambulatory to ER. Patient states she was discharged yesterday from [facility], here for Asthma medication refill. Patient states she has hx of Asthma, COPD, Hep C
--- NOTE | 2019-05-21 14:40 | NUR ---
Received patient report from MARGARITO Mckeon. Will continue to follow up. Called for sandwich as requested by patient. RT at bedside for breathing treatment.
[2019-05-21 15:15] VITALS: BP_SYST 129
--- NOTE | 2019-05-21 15:15 | NUR ---
Patient given written and verbal discharge instructions and verbalizes understanding. ER MD discussed with patient the results and treatment provided. Patient in stable condition. ID arm band removed. Rx of Dulera, Albuterol, and Prednisone given. Patient educated on pain management and to follow up with PMD. Pain Scale 0/10. Opportunity for questions provided and answered. Medication side effect fact sheet provided.
== END 2019-05-21 15:15 | disposition home or self-care (01) ==
LOC: SED 12:21
DX: J45.901 Unspecified asthma with (acute) exacerbation (principal); K21.9 Gastro-esophageal reflux disease without esophagitis; E11.9 Type 2 diabetes mellitus without complications; Z88.4 Allergy status to anesthetic agent; Z91.048 Other nonmedicinal substance allergy status; Z79.899 Other long term (current) drug therapy
CPT/HCPCS: 94640; 96372; 99284; J2930; J7613

== ENCOUNTER 2019-06-02 06:55 | Emergency (ER) | payer MEDICAID ==
[~2019-06-02] VITALS: Ht 167.6 cm; Wt 49.9 kg
[2019-06-02 07:04] VITALS: BP_SYST 132
[2019-06-02] MEDS ORDERED: BACITRACIN 1 GM OINT TP ONE (08:45)
== END 2019-06-02 09:40 | disposition home or self-care (01) ==
LOC: SED 06:55
DX: S93.402A Sprain of unspecified ligament of left ankle, initial encounter (principal); L03.114 Cellulitis of left upper limb; K21.9 Gastro-esophageal reflux disease without esophagitis; E11.9 Type 2 diabetes mellitus without complications; J44.9 Chronic obstructive pulmonary disease, unspecified; Z79.899 Other long term (current) drug therapy; Z88.8 Allergy status to other drugs, medicaments and biological substances; X58.XXXA Exposure to other specified factors, initial encounter; Y93.9 Activity, unspecified; Y92.89 Other specified places as the place of occurrence of the external cause; Y99.8 Other external cause status
CPT/HCPCS: 99283

== ENCOUNTER 2019-06-12 12:24 | Emergency (ER) | payer MEDICAID ==
[~2019-06-12] VITALS: Ht 167.6 cm; Wt 45.4 kg
[2019-06-12 12:24] VITALS: BP_SYST 107
--- NOTE | 2019-06-12 12:24 | NUR ---
BROUGHT IN BY [facility], PLACED IN BED #7 AND TRIAGED. REPORT GIVEN TO ALDA
--- NOTE | 2019-06-12 12:24 | NUR ---
BIB [facility] [address], Placed in room 07. Placed on monitor and storage bin tender, blood pressure machine and pulse oximeter. To gown for exam. Side rails up.
--- NOTE | 2019-06-12 12:25 | NUR ---
PT c/o SOB +cough x4 days getting progressivly worse. Last used inhaler 3 days ago, no longer has it. Last smoked meth 3 days ago. Pt states she is trying to quit smoking cigarettes. Restless, following commands. Eating peanut butter, placed aside for MD evaluation. Ask pt to please not eat peanut butter till MD sees her. Verbalized understanding.
--- NOTE | 2019-06-12 12:27 | NUR ---
RT at bedside for breathing tx.
--- NOTE | 2019-06-12 12:30 | NUR ---
ER at bedside examining patient.
[2019-06-12] MEDS ORDERED: IPRATROPIUM BROM 0.5 MG/2.5 ML VIAL.NEB (ATROVENT) INH ONE (12:42)
[2019-06-12] MEDS ORDERED: ALBUTEROL SULFATE 0.083% 2.5 MG/3 ML VIAL.NEB INH ONE (12:42)
[2019-06-12] MEDS ORDERED: PREDNISONE 20 MG TABLET PO ONE (12:45)
[2019-06-12] MEDS ORDERED: IPRATROPIUM BROM 0.5 MG/2.5 ML VIAL.NEB (ATROVENT) IH ONE (12:45)
[2019-06-12] MEDS ORDERED: ALBUTEROL SULFATE 0.083% 2.5 MG/3 ML VIAL.NEB IH ONE (12:45)
--- NOTE | 2019-06-12 13:34 | NUR ---
[place] of care received, pt resting at this time, respirations even and unlabored
--- NOTE | 2019-06-12 14:35 | NUR ---
PT EATING MEAL TRAY REQUESTED.
[2019-06-12 14:57] VITALS: BP_SYST 121
--- NOTE | 2019-06-12 14:57 | NUR ---
Patient given written and verbal discharge instructions and verbalizes understanding. ER MD discussed with patient the results and treatment provided. Patient in stable condition. ID arm band removed. IV catheter removed intact and dressing applied, no active bleeding. Rx of PREDNISONE, COMBIVENT given. Patient educated on pain management and to follow up with PMD. Pain Scale 0/10. Opportunity for questions provided and answered. Medication side effect fact sheet provided.
== END 2019-06-12 14:57 | disposition home or self-care (01) ==
LOC: SED 12:24
DX: J44.1 Chronic obstructive pulmonary disease with (acute) exacerbation (principal); F17.210 Nicotine dependence, cigarettes, uncomplicated
CPT/HCPCS: 94640; 99283; J7512; J7613

== ENCOUNTER 2019-07-11 10:21 | Inpatient (IN) | payer MEDICAID ==
[~2019-07-11] VITALS: Ht 152.4 cm; Wt 46.7 kg
--- NOTE | 2019-07-11 10:23 | NUR ---
Placed in room 02 . Placed on monitoring and evaluation advisor, blood pressure machine and pulse oximeter. To gown for exam. Side rails up.
[2019-07-11 10:24] VITALS: BP_SYST 124
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
--- NOTE | 2019-07-11 10:50 | NUR ---
ER Dr. Rahman at bedside examining patient.
[2019-07-11] MEDS ORDERED: methylPREDNISolone SOD SUCC/PF 62.5 MG/ML VIAL IVP ONE (10:51)
[2019-07-11] MEDS ORDERED: MAGNESIUM SULFATE 50 ML IV ONE (11:00)
[2019-07-11] MEDS ORDERED: IPRATROPIUM/ALBUTEROL SULFATE 3 ML AMPUL.NEB (DUONEB) INH ONE (11:00)
[2019-07-11] MEDS ORDERED: NACL 0.9% 1,000 ML IV ONE (11:00)
[2019-07-11 11:24] LABS: BASOPHILS # (AUTO) 0.1 K/uL (0.0-0.2); BASOPHILS % (AUTO) 0.6 % (0.0-2.0); EOSINOPHILS # (AUTO) 0.9 K/uL (0.0-0.4); EOSINOPHILS % (AUTO) 7.9 % (0.0-4.0); HEMATOCRIT 39.5 % (36-48); HEMOGLOBIN 12.9 g/dL (12.0-16.0); LYMPHOCYTES % (AUTO) 27.4 % (20.5-51.5); MEAN CORPUSCULAR HEMOGLOBIN 30 pg (27-31); MEAN CORPUSCULAR HGB CONC 33 % (32-36); MEAN CORPUSCULAR VOLUME 92 fL (79.0-98.0); MONOCYTES # (AUTO) 0.7 K/uL (0.0-1.0); MONOCYTES % (AUTO) 6.7 % (1.7-9.3); NEUTROPHILS # (AUTO) 6.3 K/uL (1.8-7.7); NEUTROPHILS % (AUTO) 57.4 % (40.0-70.0); PLATELET COUNT (AUTO) 312 K/uL (130-430); RED BLOOD CELL COUNT(AUTO) 4.29 MIL/uL (4.2-6.2); RED CELL DISTRIBUTION WIDTH 14.4 % (9.0-15.0)
[2019-07-11 11:49] LABS: CALCIUM 8.4 mg/dL (8.4-11.0); CREATININE 0.68 mg/dL (0.55-1.30); POTASSIUM 3.6 mmol/L (3.5-5.1)
[2019-07-11 11:54] LABS: ALBUMIN 3.5 g/dL (3.4-4.8); TOTAL BILIRUBIN 0.2 mg/dL (0.0-1.0)
--- NOTE | 2019-07-11 12:18 | NUR ---
Report to Latia PIMENTEL
--- NOTE | 2019-07-11 13:16 | NUR ---
Medication reconciliation completed with information provided by Patient. Any prior medication reconciliation on file was reviewed and corrected.
--- NOTE | 2019-07-11 13:20 | NUR ---
Patient will be admitted to care of Dr. Townsend. Admitted to Tele 106B unit. Will go to [id number] . Belongings list completed. Summary report printed. Report given at bedside to Ashleigh PIMENTEL. Transfer to Tele via ACLS protocol. Licensed nurse present. IV present no signs or symptoms of infiltration.
[2019-07-11 13:40] VITALS: BP_SYST 119
--- NOTE | 2019-07-11 13:40 | NUR ---
INITIAL NOTE PT RECEIVED VIA GURNEY FROM ER, ACCOMPANIED BY ER NURSE. BEDSIDE REPORT RECEIVED. PT ON 2L NASAL CANNULA SATURATING AT 95%. LEFT HAND IV 20G, SALINE LOCK. ALL BELONGINGS AT BEDSIDE WITH PATIENT.
--- NOTE | 2019-07-11 15:40 | NUR ---
RN ROUNDS PT RESTING IN BED. BREATHING EVEN AND UNLABORED. PT ON 2L NC, TOLERATING WELL. NO ACUTE DISTRESS NOTED.
[2019-07-11] MEDS ORDERED: IPRATROPIUM/ALBUTEROL SULFATE 3 ML AMPUL.NEB (DUONEB) INH PRN (17:30)
--- NOTE | 2019-07-11 17:52 | NUR ---
CONSULTATION PAGED/CALLED Reason for Consultation: [] COPD Person Who was Notified: [] TARYN Consulting Physician: [] DR FIGUEROA, DR CORDOBA DRUGLESS DOCTOR Construction Rep Specialty: [] PULMO Ordering Physician: [] DR BEACH
[2019-07-11] MEDS: MONTELUKAST 10 MG TABLET PO SCH (17:53)
[2019-07-11] MEDS: ACETAMINOPHEN 325 MG TABLET PO PRN (17:54)
[2019-07-11 17:55] VITALS: BP_SYST 119
--- NOTE | 2019-07-11 17:59 | NUR ---
RN NOTES PT COMPLAINING OF LEFT SHOULDER PAIN. PRN TYLENOL INDICATED FOR MILD PAIN. EDUCATED PT ON USES AND SIDE EFFECTS OF MEDICATION, PT VERBALIZED UNDERSTANDING. ADMINISTERED TYLENOL.
[2019-07-11 18:46] LABS: BILIRUBIN,URINE NEGATIVE (NEGATIVE); BLOOD, URINE NEGATIVE (NEGATIVE); CLARITY/URINE CLEAR (CLEAR); COLOR,URINE YELLOW (YELLOW); GLUCOSE,URINE NEGATIVE (NEGATIVE); KETONES,URINE NEGATIVE (NEGATIVE); LEUKOCYTE ESTERASE ,URINE NEGATIVE (NEGATIVE); NITRITE, URINE NEGATIVE (NEGATIVE); PH,URINE 6.5 (5.0-8.0); PROTEIN URINE NEGATIVE (NEGATIVE); UROBILINOGEN,URINE 0.2 (0.2-1.0)
[2019-07-11 18:57] LABS: BARBITURATE, URINE NEGATIVE (NEG <=200); METHAMPHETAMINES SCREEN,URINE NEGATIVE (NEG <=500); URINE AMPHETAMINE POSITIVE (NEG <=500); URINE METHADONE NEGATIVE (NEG <=200)
[2019-07-11 18:58] LABS: BENZODIAZEPINE, URINE POSITIVE (NEG <=150); CANNABINOID, URINE NEGATIVE (NEG <=50); COCAINE, URINE NEGATIVE (NEG <=150); OPIATE, URINE NEGATIVE (NEG <=100); PHENCYCLIDINE SCREEN,URINE NEGATIVE (NEG <=25); UR TRICYCLIC ANTIDEPRESSANTS NEGATIVE (NEG <=300); URINE OXYCODONE SCREEN NEGATIVE (NEG <=100); URINE PROPOXYPHENE SCREEN NEGATIVE (NEG <=300)
--- NOTE | 2019-07-11 19:30 | NUR ---
Opening notes Received report. Patient resting in bed, no signs of distress noted. Breathing even and unlabored. IV patent and intact, no signs of infiltration noted. No needs at this time. Call light with the patient. Safety precautions in place.
--- NOTE | 2019-07-11 19:34 | NUR ---
closing note bedside report given to software validation technician rn. pt resting in bed. pt 2L nc, tolerating well. breathing even and unlabored. call light within reach, bed in low and locked position with bed alarm on. pt care endorsed to software validation technician rn.
[2019-07-11] MEDS: IPRATROPIUM/ALBUTEROL SULFATE 3 ML AMPUL.NEB (DUONEB) INH SCH (20:21)
[2019-07-11] MEDS: DOXYCYCLINE HYCLATE 100 MG CAPSULE PO SCH (22:12)
[2019-07-11] MEDS: methylPREDNISolone SOD SUCC 40 MG/ML VIAL IVP SCH (22:13)
--- NOTE | 2019-07-11 22:20 | NUR ---
Medications/Personal belongings list Medications given. Educated the patient the action and side effects of medications. Patient verbalized understanding and tolerated well. No signs of allergic reaction noted. Informed patient a personal belongings list needs to be done, patient wants it done in the morning. will try again in morning. Patient refusing bed alarm. States she is fine and is feeling better than earlier. Call light with the patient. Safety precautions in place.
[2019-07-11 22:22] VITALS: BP_SYST 143
--- NOTE | 2019-07-12 00:30 | NUR ---
Sleeping No signs of distress noted. Breathing even and unlabored. Call light with the patient. Safety precautions in place.
[2019-07-12] MEDS: IPRATROPIUM/ALBUTEROL SULFATE 3 ML AMPUL.NEB (DUONEB) INH SCH ×7 (01:52→23:13)
--- NOTE | 2019-07-12 02:33 | NUR ---
Resting Patient resting in bed. No signs of distress noted. Breathing even and unlabored. Snacks provided per patient request. No other needs. Call light with the patient. Safety precautions in place.
--- NOTE | 2019-07-12 04:30 | NUR ---
Sleeping No signs of distress noted. Breathing even and unlabored. Call light with the patient. Safety precautions in place. at bedside. Addendum: 07/12/19 at 0702 by Francia Sol RN CORRECTION: No visitors at bedside.
--- NOTE | 2019-07-12 05:54 | NUR ---
CONSULTATION PAGED/CALLED Reason for Consultation: COPD Person Who was Notified:JESSE Consulting Physician: DR. FIGUEROA Tool And Equipment Rental Clerk Specialty: PULMO Ordering Physician: DR. BEACH
--- NOTE | 2019-07-12 07:00 | NUR ---
Sleeping No signs of distress noted. Breathing even and unlabored. Call light with the patient. Safety precautions in place. at bedside. Addendum: 07/12/19 at 0701 by Francia Sol RN CORRECTION: INTENDED TIME FOR 0430 AM
--- NOTE | 2019-07-12 07:02 | NUR ---
Closing notes Patient resting in bed. No signs of distress noted. Breathing even and unlabored. IV patent and intact, no signs of infiltration noted. All needs met throughout the shift. Call light with the patient. Safety precautions in place. Will endorse care to day shift RN.
--- NOTE | 2019-07-12 07:40 | NUR ---
OPENING NOTE: MORNING REPORT TAKEN AT BEDSIDE WITH NIGHT NURSE. PT RESTING IN BED WITH NO SIGNS OF RESP DISTRESS. CALL LIGHT IS IN REACH. BED ALARM IS ON AND BED IN LOWEST POSITION WITH SIDE RAILS UP. WILL CONTINUE TO MONITOR.
[2019-07-12 07:47] LABS: CALCIUM 8.7 mg/dL (8.4-11.0); CREATININE 0.58 mg/dL (0.55-1.30); POTASSIUM 4.3 mmol/L (3.5-5.1)
[2019-07-12 07:48] VITALS: BP_SYST 126
[2019-07-12] MEDS: methylPREDNISolone SOD SUCC 40 MG/ML VIAL IVP SCH ×2 (09:26→21:19)
[2019-07-12] MEDS: DOXYCYCLINE HYCLATE 100 MG CAPSULE PO SCH ×2 (09:26→21:19)
[2019-07-12] MEDS: ACETAMINOPHEN 325 MG TABLET PO PRN (09:26)
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
--- NOTE | 2019-07-12 10:39 | NUR ---
PT RESTING IN BED WITH NO SIGNS OF DISTRESS. PT REFUSING TO HAVE BELONGINGS INVENTORIED. CALL LIGHT IS IN REACH. WILL CONTINUE TO MONITOR.
--- NOTE | 2019-07-12 10:49 | NUR ---
CONSULTATION PAGED/CALLED Reason for Consultation: LEFT SHOULDER SUBLAXATION Person Who was Notified: SHANNON FROM OFFICE. Consulting Physician: GROUP EXERCISE MANAGER FOR Technical Training Coordinator Specialty: ORTHO Ordering Physician:
--- NOTE | 2019-07-12 11:46 | NUR ---
ENDORSED CARE TO MARGARITO BARRAZA.
[2019-07-12 11:53] VITALS: BP_SYST 136
--- NOTE | 2019-07-12 12:00 | NUR ---
ASSUMPTION OF CARE: RECEIVED PT A/A/OX4, NO S/S OF DISTRESS, ORIENTED TO UNIT, CALL LIGHT PLACED WITHIN REACH, WILL CONT' TO MONITOR AND ASSESS.
--- NOTE | 2019-07-12 13:00 | NUR ---
BELONGINGS LIST: ALL BELONGINGS ACCOUNTED FOR AND RECORDED IN CHART, SECURITY CALLED TO REMOVE BELONGINGS FROM THE ROOM, PT'S BELONGINGS AND PARAPHERNALIA ARE BEING KEPT SAFE WITH SECURITY, SEE INVENTORY LIST.
--- NOTE | 2019-07-12 14:00 | NUR ---
VISIT: AT BEDSIDE FOR ASSESSMENT OF PT, NEW ORDERS GIVEN, WILL CONT' TO MONITOR AND ASSESS.
[2019-07-12 16:00] VITALS: BP_SYST 139
--- NOTE | 2019-07-12 17:00 | NUR ---
NURSES NOTES: PT OBSERVED WALKING THROUGH HALLWAYS TO NURSING STATIONS, ASKING FOR SNACKS AND FOOD. PT WAS INSTRUCTED TO RETURN TO HER ROOM FOR SAFETY REASONS AND FOOD WILL BE BROUGHT TO HER. PT COMPLIED WITH THIS REQUEST, AND WAS GIVEN CRACKERS AND JELLO-PUDDING, PT APPEARS CONTENT AT THIS TIME, CALL LIGHT PLACED WITHIN REACH, PT REORIENTED TO IT'S USE, WILL CON'T TO MONITOR AND ASSESS.
[2019-07-12] MEDS: MONTELUKAST 10 MG TABLET PO SCH (17:59)
--- NOTE | 2019-07-12 19:00 | NUR ---
END OF SHIFT: PT REMAINS STABLE, FREE OF FALL OR INJURY, NEEDS MET, WILL CONT' TO MONITOR, WILL ENDORSE TO PILLOW AGENT NURSE.
--- NOTE | 2019-07-12 19:30 | NUR ---
Opening notes Received report. Patient is resting in bed, receiving breathing treatment. No signs of distress noted. Breathing even and unlabored. IV patent and intact, no signs of infiltration noted. No needs at this time. Call light with the patient. Safety precautions in place.
[2019-07-12 21:26] VITALS: BP_SYST 125
--- NOTE | 2019-07-12 21:30 | NUR ---
Medications given. Educated the action and side effects of medications. Patient verbalized understanding and tolerated well. Provided patient with snacks. No other needs. Call light with the patient. Safety precautions in place.
--- NOTE | 2019-07-13 | NUR ---
Resting Patient resting in bed. No signs of distress noted. Breathing even and unlabored. Call light with the patient. Safety precautions in place.
[2019-07-13 01:01] VITALS: BP_SYST 142
--- NOTE | 2019-07-13 02:45 | NUR ---
Sleeping No signs of distress noted. Breathing even and unlabored. Call light with the patient. Safety precautions in place.
[2019-07-13] MEDS: IPRATROPIUM/ALBUTEROL SULFATE 3 ML AMPUL.NEB (DUONEB) INH SCH ×4 (03:00→23:00)
--- NOTE | 2019-07-13 04:46 | NUR ---
Sleeping No signs of distress noted. Breathing even and unlabored. Call light with the patient. Safety precautions in place.
--- NOTE | 2019-07-13 07:45 | NUR ---
opening note patient is resting in bed, A&ox4, assessment completed, educated customer service sales consultant light system and plan of care, patient verbalized understanding, no signs of distress, IV line intact with dressing, patient ambulated steady in room then went back to bed, fall/safety precautions in place.
[2019-07-13 08:05] VITALS: BP_SYST 147
[2019-07-13] MEDS: DOXYCYCLINE HYCLATE 100 MG CAPSULE PO SCH ×2 (08:23→22:00)
[2019-07-13] MEDS: methylPREDNISolone SOD SUCC 40 MG/ML VIAL IVP SCH ×2 (08:23→22:00)
[2019-07-13] MEDS: ACETAMINOPHEN 325 MG TABLET PO PRN ×2 (08:24→18:13)
--- NOTE | 2019-07-13 09:55 | NUR ---
rounds patient is resting in bed, eyes closed breathing easy and nonlabored, no needs addressed at this, fall/safety precautions in place.
[2019-07-13] MEDS ORDERED: MAGNESIUM SULFATE 50 ML IV ONE (11:00)
[2019-07-13 11:18] VITALS: BP_SYST 153
--- NOTE | 2019-07-13 11:46 | NUR ---
mag sulf patient is resting in bed, educated on medication use and side effects, patient verbalized understanding and tolerating well, no other needs at this time, fall/safety precautions in place.
[2019-07-13] MEDS ORDERED: cefTRIAXone 1 GM IVPB PREMIX 50 ML IV ONE (12:00)
--- NOTE | 2019-07-13 13:56 | NUR ---
rocephin patient is resting in bed, educated on medication use and side effects, patient verbalized understanding, no other needs at this time, fall/safety precautions in place.
--- NOTE | 2019-07-13 15:45 | NUR ---
rounds patient resting in bed, patient given snacks, no other needs at this time, fall/safety precautions in place.
[2019-07-13 17:26] VITALS: BP_SYST 166
[2019-07-13] MEDS: MONTELUKAST 10 MG TABLET PO SCH (18:12)
--- NOTE | 2019-07-13 18:50 | NUR ---
closing note patient is resting in bed, no signs of distress, IV line intact with dressing, patient ambulated steady in room then went back to bed, fall/safety precautions in place, no needs addressed at this time, will endorse report to noc shift nurse to continue with care, patient has not wanted to put on nasal cannula all day.
--- NOTE | 2019-07-13 19:40 | NUR ---
INITIAL NOTE / BED ALARM REFUSAL AT INITIAL ASSESSMENT, PATIENT IS RESTING IN BED, STABLE, NO SIGNS OF RESPIRATORY DISTRESS. PATIENT VERBALIZES NO PAIN. PLAN OF CARE FOR THE EVENING IS COMMUNICATED WITH THE PATIENT. PATIENT SUCCESSFULLY DEMONSTRATES CORRECT USAGE OF CALL LIGHT AT THIS TIME. BED IS LOCKED, AND AT THE LOWEST LEVEL. PATIENT IS REFUSING BED ALARM AT THIS TIME DESPITE EDUCATIONAL EFFORTS. HER GAIT IS NOTED TO BE STEADY. FALL AND SAFETY PRECAUTIONS WILL BE IN PLACE THROUGHOUT THE SHIFT.
[2019-07-13 19:50] VITALS: BP_SYST 142
--- NOTE | 2019-07-13 21:40 | NUR ---
NOTE PRN MEDICATION FOR INSOMNIA WILL BE GIVEN AT THIS TIME PER PATIENT'S REQUEST. CURRENTLY, PATIENT IS RESTING IN BED, STABLE, NO SIGNS OF RESPIRATORY DISTRESS. CALL LIGHT IS WITHIN REACH. BED IS LOCKED, ALARMED, AND AT THE LOWEST LEVEL.
[2019-07-13] MEDS: TEMAZEPAM 15 MG CAPSULE PO PRN (22:04)
--- NOTE | 2019-07-13 23:40 | NUR ---
NOTE PATIENT IS SLEEPING, STABLE, NO SIGNS OF RESPIRATORY DISTRESS. CALL LIGHT IS WITHIN REACH. BED IS LOCKED, ALARMED, AND AT THE LOWEST LEVEL.
[2019-07-14] VITALS: BP_SYST 140
--- NOTE | 2019-07-14 00:55 | NUR ---
NOTE PATIENT IS SLEEPING, STABLE, NO SIGNS OF RESPIRATORY DISTRESS. CALL LIGHT IS WITHIN REACH. BED IS LOCKED, ALARMED, AND AT THE LOWEST LEVEL.
--- NOTE | 2019-07-14 02:45 | NUR ---
NOTE PATIENT IS SLEEPING, STABLE, NO SIGNS OF RESPIRATORY DISTRESS. CALL LIGHT IS WITHIN REACH. BED IS LOCKED, ALARMED, AND AT THE LOWEST LEVEL.
[2019-07-14] MEDS: IPRATROPIUM/ALBUTEROL SULFATE 3 ML AMPUL.NEB (DUONEB) INH SCH ×6 (03:00→22:27)
--- NOTE | 2019-07-14 04:45 | NUR ---
NOTE SNACKS GIVEN PER PATIENT REQUEST. PATIENT IS RESTING IN BED, STABLE, NO SIGNS OF RESPIRATORY DISTRESS. CALL LIGHT IS WITHIN REACH. BED IS LOCKED, ALARMED, AND AT THE LOWEST LEVEL.
--- NOTE | 2019-07-14 06:45 | NUR ---
CLOSING NOTE PATIENT REQUESTED FOR SNACKS FREQUENTLY THROUGHOUT THE NIGHT. AT THIS TIME, PATIENT IS RESTING IN BED, STABLE, NO SIGNS OF RESPIRATORY DISTRESS. CALL LIGHT IS WITHIN REACH. BED IS LOCKED, ALARMED, AND AT THE LOWEST LEVEL. FALL AND SAFETY PRECAUTIONS HAVE BEEN IN PLACE THROUGHOUT THE SHIFT. WILL CONTINUE TO MONITOR UNTIL SHIFT REPORT IS GIVEN AT BEDSIDE TO AM NURSE.
[2019-07-14 07:50] LABS: HEMATOCRIT 43.4 % (36-48); HEMOGLOBIN 14.2 g/dL (12.0-16.0); MEAN CORPUSCULAR HEMOGLOBIN 30 pg (27-31); MEAN CORPUSCULAR HGB CONC 33 % (32-36); MEAN CORPUSCULAR VOLUME 92 fL (79.0-98.0); PLATELET COUNT (AUTO) 291 K/uL (130-430); RED CELL DISTRIBUTION WIDTH 14.6 % (9.0-15.0)
[2019-07-14 07:52] LABS: CALCIUM 8.2 mg/dL (8.4-11.0); CHLORIDE 107 mmol/L (98-107); CREATININE 0.44 mg/dL (0.55-1.30); GLUCOSE 77 mg/dL (70-99); POTASSIUM 3.8 mmol/L (3.5-5.1); SODIUM SERUM 141 mmol/L (136-145); UREA NITROGEN, BLOOD 14 mg/dL (8-21)
[2019-07-14 07:59] LABS: ANION GAP < 3 (5-15); GFR AFRICAN AMERICAN 195 mL/min (>90)
[2019-07-14 08:00] VITALS: BP_SYST 127
--- NOTE | 2019-07-14 08:00 | NUR ---
ASSUMPTION OF CARE: RECEIVED PT A/A/OX4, DX: INADEQUATE VENTILATION, R/T COPD, VSS, BREATH SOUNDS ARE DIMINISHED IN BILATERAL UPPER LOBES, BREATHING IS LABORED, SOB ON EXERTION, RECEIVING BREATHING TX Q6. NO S/S OF DISTRESS, AFEBRILE, IV SITE INTACT, PATENT, NO REDNESS OR SWELLING, ORIENTED TO UNIT, CALL LIGHT PLACED WITHIN REACH, WILL CONT' TO MONITOR AND ASSESS.
[2019-07-14 08:03] LABS: WHITE BLOOD COUNT (AUTO) 20.7 K/uL (4.8-10.8)
--- NOTE | 2019-07-14 09:00 | NUR ---
LOG YARD MANAGER: MORNING MEDS GIVEN, PER ORDERED BY Blayne, TOLERATED WELL, WILL CONT' WITH POC.
[2019-07-14] MEDS: LORazepam 1 MG TABLET PO PRN (09:13)
[2019-07-14] MEDS: ACETAMINOPHEN 325 MG TABLET PO PRN (09:14)
[2019-07-14] MEDS: DOXYCYCLINE HYCLATE 100 MG CAPSULE PO SCH ×2 (09:14→22:36)
[2019-07-14] MEDS: methylPREDNISolone SOD SUCC 40 MG/ML VIAL IVP SCH ×2 (09:14→22:36)
[2019-07-14 10:12] LABS: ATYPICAL LYMPHOCYTES % 0 % (0-0); BAND % (MANUAL) 0 % (0-6); BASOPHILS % (MANUAL) 0 % (0-2); EOSINOPHILS % (MANUAL) 1 % (0-7); LYMPHOCYTES % (MANUAL) 12 % (20-46); MONOCYTES % (MANUAL) 7 % (0-11)
[2019-07-14 11:28] VITALS: BP_SYST 133
--- NOTE | 2019-07-14 12:00 | NUR ---
NURSES NOTES: PT SITTING UP ON SIDE OF BED WHILE EATING LUNCH MEAL, TOLERATING WELL, NO CHANGES IN CONDITION NOTED, WILL CONT' TO MONITOR AND ASSESS.
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
--- NOTE | 2019-07-14 15:00 | NUR ---
NURSES NOTES: PT ASLEEP WITH BLANKET PULLED OVER HER HEAD, STATES "I'M OKAY" WHEN ASKED IF SHE NEEDED ANYTHING, CALL LIGHT PLACED WITHIN REACH, WILL CONT' TO MONITOR WHILE MAKING HOURLY ROUNDS. PT'S NEEDS ARE MET, SNACKS PROVIDED UPON REQUEST.
[2019-07-14 15:24] VITALS: BP_SYST 150
--- NOTE | 2019-07-14 18:00 | NUR ---
VISIT: AT BEDSIDE FOR ASSESSMENT OF PT, NEW ORDERS GIVEN, WILL CONT' TO MONITOR AND ASSESS.
[2019-07-14] MEDS: MONTELUKAST 10 MG TABLET PO SCH (18:26)
--- NOTE | 2019-07-14 19:05 | NUR ---
OPENING NOTES RECEIVED PATIENT IN BED RESTING. BREATHING UNLABORED ON ROOM AIR. IV LINE INTACT TO LFA. BED IN LOWEST LOCKED POSITION. CALL LIGHT WITH IN REACH.
[2019-07-14 22:27] VITALS: BP_SYST 154
--- NOTE | 2019-07-14 22:36 | NUR ---
MED PASS PATIENT DUE MEDICATIONS GIVEN. HS SNACK PROVIDED PER PATIENT REQUEST. VITAL SIGNS STABLE.
--- NOTE | 2019-07-14 23:30 | NUR ---
SNACK ADDITIONAL SNACK PROVIDED PER PATIENT REQUEST.
--- NOTE | 2019-07-15 01:00 | NUR ---
SNACK ADDITIONAL SNACK PROVIDED PER PATIENT REQUEST.
[2019-07-15 02:13] VITALS: BP_SYST 161
[2019-07-15] MEDS: IPRATROPIUM/ALBUTEROL SULFATE 3 ML AMPUL.NEB (DUONEB) INH SCH ×6 (03:00→23:30)
--- NOTE | 2019-07-15 03:37 | NUR ---
ROUNDS PATIENT RESTING IN BED. NO DISTRESS NOTED. CALL LIGHT WITH IN REACH.
--- NOTE | 2019-07-15 06:52 | NUR ---
CLOSING NOTES PATIENT AWAKE IN BED. BREATHING UNLABORED. NO C/O PAIN THROUGH OUT SHIFT. PATIENT NEEDS ATTENDED. BE DIN LOWEST LOCKED POSITION. CALL LIGHT WITH IN REACH.
--- NOTE | 2019-07-15 07:45 | NUR ---
AM ROUNDS; Oriented x4. Denies any pain. Wants V/s taken after breakfast. Instructed to call when done.
[2019-07-15] MEDS: methylPREDNISolone SOD SUCC 40 MG/ML VIAL IVP SCH (08:36)
[2019-07-15] MEDS: DOXYCYCLINE HYCLATE 100 MG CAPSULE PO SCH ×2 (08:36→21:22)
[2019-07-15] MEDS: ACETAMINOPHEN 325 MG TABLET PO PRN ×2 (08:36→15:06)
[2019-07-15 08:41] VITALS: BP_SYST 114
[2019-07-15] MEDS ORDERED: ALBUTEROL MDI INHALATION 8 GM INH INH PRN (10:00)
[2019-07-15] MEDS: LORazepam 1 MG TABLET PO PRN (10:08)
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
--- NOTE | 2019-07-15 10:20 | NUR ---
AGITATION/ANXIETY: Patient is anxious and wanting something to relax her so she could go to sleep. Ativan 1 mg PO given.
--- NOTE | 2019-07-15 11:30 | NUR ---
Rounds: Patient is asleep.
[2019-07-15 12:47] VITALS: BP_SYST 132
--- NOTE | 2019-07-15 14:23 | NUR ---
Dietitian Recommendations * Recommend regular diet w/ Ensure Enlive TID (ONS provides 1050 kcal/day, 60 gm protein/day) KELLY HANSON Please refer to Nutrition Assessment for details. Addendum: 07/15/19 at [address] Amended: Links added.
--- NOTE | 2019-07-15 15:41 | NUR ---
md rounds: Seen by Dr. Kristian MD made aware of patient continuous complaints of head ache and neck pain. Order for CT head/c spine noted.
--- NOTE | 2019-07-15 16:06 | NUR ---
CONSULT PSYCH DEPRESSION BENITA JEFFERSNO [phone] S/W DANICA OFFICE FACE SHEET FAXED TO [phone]
[2019-07-15 16:44] VITALS: BP_SYST 141
[2019-07-15] MEDS: MONTELUKAST 10 MG TABLET PO SCH (17:44)
--- NOTE | 2019-07-15 18:37 | NUR ---
End of shift: Patient is asleep. No change in assessment.
--- NOTE | 2019-07-15 19:10 | NUR ---
OPENING NOTES RECEIVED PATIENT IN BED EYES CLOSED SOFT SNORING INTERMITTENTLY NOTED. BED IN LOWEST LOCKED POSITION. CALL LIGHT WITH IN REACH.
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
[2019-07-15 20:44] VITALS: BP_SYST 123
--- NOTE | 2019-07-15 21:15 | NUR ---
GT FEEDING GT FEEDING TOLERATED AT THIS TIME. NO RESIDUAL OBTAINED. Addendum: 07/15/19 at 2209 by Laura Barroso RN WRONG ENTRY FOR ANOTHER PATIENT
[2019-07-15] MEDS: TEMAZEPAM 15 MG CAPSULE PO PRN (21:28)
--- NOTE | 2019-07-15 21:28 | NUR ---
MED PASS PATIENT DUE MEDICATION GIVEN. VITAL SIGNS STABLE. SLEEPING PILL GIVEN PER PATIENT REQUEST. HS SNACK PROVIDED.
--- NOTE | 2019-07-16 00:30 | NUR ---
SNACKS ADDITIONAL SNACKS PROVIDED PER PATIENT REQUEST.
[2019-07-16 01:38] VITALS: BP_SYST 113
[2019-07-16] MEDS: IPRATROPIUM/ALBUTEROL SULFATE 3 ML AMPUL.NEB (DUONEB) INH SCH ×3 (03:00→11:37)
--- NOTE | 2019-07-16 03:31 | NUR ---
ROUNDS PATIENT RESTING IN BED. SNORING INTERMITTENTLY.
--- NOTE | 2019-07-16 06:23 | NUR ---
CLOSING NOTES PATIENT RESTING IN BED. NO DISTRESS NOTED. PATIENT NEEDS ATTENDED. BED IN LOWEST LOCKED POSITION. CALL LIGHT WITH IN REACH.
[2019-07-16 07:20] LABS: BASOPHILS # (AUTO) 0.1 K/uL (0.0-0.2); BASOPHILS % (AUTO) 0.3 % (0.0-2.0); EOSINOPHILS # (AUTO) 0.1 K/uL (0.0-0.4); EOSINOPHILS % (AUTO) 0.7 % (0.0-4.0); HEMATOCRIT 44.5 % (36-48); HEMOGLOBIN 14.4 g/dL (12.0-16.0); LYMPHOCYTES # (AUTO) 3.4 K/uL (1.0-5.5); LYMPHOCYTES % (AUTO) 18.1 % (20.5-51.5); MEAN CORPUSCULAR HEMOGLOBIN 30 pg (27-31); MEAN CORPUSCULAR HGB CONC 32 % (32-36); MEAN CORPUSCULAR VOLUME 92 fL (79.0-98.0); MONOCYTES % (AUTO) 5.4 % (1.7-9.3); NEUTROPHILS # (AUTO) 14.3 K/uL (1.8-7.7); NEUTROPHILS % (AUTO) 75.5 % (40.0-70.0); PLATELET COUNT (AUTO) 335 K/uL (130-430); RED BLOOD CELL COUNT(AUTO) 4.83 MIL/uL (4.2-6.2); RED CELL DISTRIBUTION WIDTH 14.9 % (9.0-15.0); WHITE BLOOD COUNT (AUTO) 18.9 K/uL (4.8-10.8)
--- NOTE | 2019-07-16 07:30 | NUR ---
INITIAL NOTE BEDSIDE SBAR REPORT RECEIVED BY MATERIAL ASSEMBLER RN. PT AWAKE. DENIES ANY PAIN OR DISCOMFORT. PT RECEIVING BREATHING TREATMENT, TOLERATING WELL. IV SALINE LOCK. EDUCATED PT ON SAFETY AND USE OF BED ALARM, PT VERBALIZE UNDERSTANDING, REFUSING BED ALARM AT THIS TIME. CALL LIGHT WITHIN REACH, BED IN LOW AND LOCKED POSITION.
[2019-07-16 07:38] LABS: CALCIUM 8.5 mg/dL (8.4-11.0); CREATININE 0.56 mg/dL (0.55-1.30); POTASSIUM 4.5 mmol/L (3.5-5.1)
[2019-07-16 08:00] VITALS: BP_SYST 125
[2019-07-16] MEDS: DOXYCYCLINE HYCLATE 100 MG CAPSULE PO SCH (08:22)
[2019-07-16] MEDS: ACETAMINOPHEN 325 MG TABLET PO PRN (09:15)
--- NOTE | 2019-07-16 09:30 | NUR ---
RN ROUNDS ASSISTED PT WITH HYGIENE. PT TAKING SHOWER. DENIES ANY SOB.
[2019-07-16] MEDS: LORazepam 1 MG TABLET PO PRN (09:47)
--- NOTE | 2019-07-16 09:58 | NUR ---
MD ROUNDS DR. LYN AT BEDSIDE EXAMINING PATIENT.
--- NOTE | 2019-07-16 11:50 | NUR ---
SPOKE W/ SPOKE WITH DR. BEACH, INFORMED MD THAT PATIENT DID NOT QUALIFY FOR SNF PLACEMENT, PT REFUSING [facility] ASSISTANCE. MD WILL COME IN LATER TO WRITE DC ORDER.
[2019-07-16 12:48] VITALS: BP_SYST 123
--- NOTE | 2019-07-16 13:37 | NUR ---
AMA: Patient does not wish to proceed with medical care recommended by Dr. Beach. Patient signed AMA form. IV catheter removed, catheter intact, no bleeding. Hospital ID band removed. All belongings sent with patient including all items in safe. Patient given information related to possible complications, up to and including , which could occur as a result of leaving hospital at this time. Patient verbalizes understanding of risks involved leaving against medical advice. Patient refusing wheelchair, steady gait. Patient escorted to parking lot by hospital security. Addendum: 07/16/19 at 1623 by Ashleigh Howard RN 1622 DR. BEACH INFORMED OF PATIENT LEAVING AMA.
--- NOTE | 2019-07-16 14:55 | NUR ---
Medical Lab Assistant: follow up with pt. RN CVOR asked David Early how pt. was doing and was informed pt. just left 1 hour ago TAWNY.
== END 2019-07-16 13:37 | disposition left against medical advice (07) | DRG 140 ==
LOC: SED 10:21 → STU 13:06 → SMU 07-12 13:57
PROVIDERS: ADMIT Internal Medicine; ATTEND Internal Medicine
DX: J44.1 Chronic obstructive pulmonary disease with (acute) exacerbation (principal); J96.01 Acute respiratory failure with hypoxia; R65.11 Systemic inflammatory response syndrome (SIRS) of non-infectious origin with acute organ dysfunction; F15.10 Other stimulant abuse, uncomplicated; Z53.29 Procedure and treatment not carried out because of patient's decision for other reasons; F31.9 Bipolar disorder, unspecified; F41.9 Anxiety disorder, unspecified; R45.850 Homicidal ideations; K21.9 Gastro-esophageal reflux disease without esophagitis; M24.412 Recurrent dislocation, left shoulder; Z59.0 Homelessness; Z87.891 Personal history of nicotine dependence; Z91.19 Patient's noncompliance with other medical treatment and regimen; Z91.410 Personal history of adult physical and sexual abuse; Z79.899 Other long term (current) drug therapy; Z88.8 Allergy status to other drugs, medicaments and biological substances
CPT/HCPCS: 36415; 36600; 70450-TC; 71045; 72125-TC; 80048; 80053; 80307; 81003; 82103; 82785; 82803-TC; 83605; 85007; 85025; 85027; 87040-TC; 94640; 94760; 96365; 96366; 96375; 99285; G0378; J0696; J1030; J2930; J3475; J7620

== ENCOUNTER 2019-08-13 05:39 | Emergency (ER) | payer MEDICAID ==
[~2019-08-13] VITALS: Ht 167.6 cm; Wt 40.8 kg
[2019-08-13 05:39] VITALS: BP_SYST 132
[~2019-08-13 05:39] MED LIST changes: -L.RH1CAP PO; -MED4 PO
--- NOTE | 2019-08-13 05:40 | NUR ---
Pt brought in by [facility]. Pt In respiratory distress with accessory muscle use, air hunger, retractions. Pt currently being administered albuterol breathing treatment upon arrival. Pt awake, alert, oriented x4. Pt agitated toward staff. Pt states that she was "sleeping on my boogieboard" in a dirt lot where her home is, and she began to have respiratory difficulty which woke her. Pt states that she Needs to just get treatment so she can "get back to very important work". Pt uncooperative and removing all of her sensors during transfer/assesment. Pt denies chest pain, nausea, vomiting, diarrhea, pain or other medical complaints at this time. Pt Vital signs stable.
--- NOTE | 2019-08-13 05:40 | NUR ---
Placed in room 4 . Placed on classroom monitor, blood pressure machine and pulse oximeter. To gown for exam. Side rails up.
--- NOTE | 2019-08-13 05:41 | NUR ---
ER at bedside examining patient.
[2019-08-13] MEDS ORDERED: IPRATROPIUM/ALBUTEROL SULFATE 3 ML AMPUL.NEB (DUONEB) ONE (05:51)
--- NOTE | 2019-08-13 05:55 | NUR ---
Pt Uncooperative during IV attempts. Pt moving arms, cursing at staff. Pt exclaiming racial epithets at staff members.
--- NOTE | 2019-08-13 06:00 | NUR ---
Pt Requesting additional warm blankets, requesting a breakfast tray with "double portions". Kitchen notified, tray requested
--- NOTE | 2019-08-13 06:05 | NUR ---
When patient asked if she is currently homeless or in need of homeless resources, pt vehemently denies being homeless. Curses at staff
[2019-08-13 06:12] LABS: BASOPHILS # (AUTO) 0.1 K/uL (0.0-0.2); EOSINOPHILS # (AUTO) 1.8 K/uL (0.0-0.4); EOSINOPHILS % (AUTO) 16.1 % (0.0-4.0); HEMATOCRIT 45.2 % (36-48); HEMOGLOBIN 15.2 g/dL (12.0-16.0); LYMPHOCYTES # (AUTO) 1.9 K/uL (1.0-5.5); LYMPHOCYTES % (AUTO) 17.9 % (20.5-51.5); MEAN CORPUSCULAR HEMOGLOBIN 30 pg (27-31); MEAN CORPUSCULAR HGB CONC 34 % (32-36); MEAN CORPUSCULAR VOLUME 90 fL (79.0-98.0); MONOCYTES # (AUTO) 0.6 K/uL (0.0-1.0); MONOCYTES % (AUTO) 5.6 % (1.7-9.3); NEUTROPHILS # (AUTO) 6.5 K/uL (1.8-7.7); NEUTROPHILS % (AUTO) 59.4 % (40.0-70.0); PLATELET COUNT (AUTO) 346 K/uL (130-430); RED CELL DISTRIBUTION WIDTH 14.9 % (9.0-15.0); WHITE BLOOD COUNT (AUTO) 10.9 K/uL (4.8-10.8)
[2019-08-13 06:24] LABS: CALCIUM 8.3 mg/dL (8.4-11.0); CREATININE 0.44 mg/dL (0.55-1.30); POTASSIUM 4.5 mmol/L (3.5-5.1)
[2019-08-13 06:26] LABS: PROTHROMBIN TIME 9.7 SECS (9.5-12.5)
[2019-08-13 06:29] LABS: ALBUMIN 3.7 g/dL (3.4-4.8); TOTAL BILIRUBIN 0.6 mg/dL (0.0-1.0)
[2019-08-13] MEDS ORDERED: cefTRIAXone 1 GM IVPB PREMIX 50 ML IV ONE (06:45)
[2019-08-13] MEDS ORDERED: methylPREDNISolone SOD SUCC/PF 62.5 MG/ML VIAL IVP ONE (06:45)
[2019-08-13] MEDS ORDERED: NACL 0.9% 1,000 ML IV ONE (06:45)
--- NOTE | 2019-08-13 07:30 | NUR ---
Report Given to MARGARITO Garcia. All care endorsed
--- NOTE | 2019-08-13 07:37 | NUR ---
Patient refused to do contrast questionaire at this time.
[2019-08-13] MEDS ORDERED: IOHEXOL 0 ML IV ONE (07:39)
--- NOTE | 2019-08-13 07:40 | NUR ---
Breakfast tray provided.
--- NOTE | 2019-08-13 07:42 | NUR ---
Dr. Perdue in to speak with patient.
[2019-08-13] MEDS ORDERED: IPRATROPIUM/ALBUTEROL SULFATE 3 ML AMPUL.NEB (DUONEB) INH ONE (07:45)
--- NOTE | 2019-08-13 09:14 | NUR ---
Went in to give discharge instructions, patient became verbally aggressive and hostile. Patient is demanding to speak with the doctor and threatening to leave and rip out her IV. Patient will not let me attempt to remove IV. Dr. Perdue made aware.
--- NOTE | 2019-08-13 09:16 | NUR ---
Dr. Perdue and voyage management system operator in to speak with patient.
--- NOTE | 2019-08-13 09:19 | NUR ---
Patient is demanding symbicort. Dr. Perdue made aware.
--- NOTE | 2019-08-13 09:20 | NUR ---
Patient is pacing around her bed and yelling. Security called.
--- NOTE | 2019-08-13 09:23 | NUR ---
Patient refused written and verbal discharge instructions. Patient refused ER MD discussion. Patient in stable condition. ID arm band removed. IV catheter removed intact and dressing applied, no active bleeding. Patient refused clothing, given homeless packet. Patient refused ride. Rx of symbicort, prednisone, albuterol, bactrim given. Patient educated on pain management and to follow up with PMD. Pain Scale 0/10. Opportunity for questions provided and answered. Medication side effect fact sheet provided.
--- NOTE | 2019-08-13 09:24 | NUR ---
PT ESCORTED OUT BY SECURITY
[2019-08-13 09:25] VITALS: BP_SYST 134
== END 2019-08-13 09:24 | disposition home or self-care (01) ==
LOC: SED 05:39
DX: J44.1 Chronic obstructive pulmonary disease with (acute) exacerbation (principal); J06.9 Acute upper respiratory infection, unspecified; E11.9 Type 2 diabetes mellitus without complications; M54.9 Dorsalgia, unspecified; K21.9 Gastro-esophageal reflux disease without esophagitis; Z88.4 Allergy status to anesthetic agent; Z88.1 Allergy status to other antibiotic agents; Z91.048 Other nonmedicinal substance allergy status; Z79.899 Other long term (current) drug therapy; Z86.19 Personal history of other infectious and parasitic diseases
CPT/HCPCS: 36415; 71045; 80053; 82550; 83605; 83880; 84484; 85025; 85379; 85610; 87040; 93005; 94640; 96365; 96375; 99284; J0696; J2930; J7030; J7620; 71275; Q9967

== ENCOUNTER 2019-08-30 06:59 | Emergency (ER) | payer MEDICAID ==
[~2019-08-30] VITALS: Ht 160 cm; Wt 45.4 kg
[2019-08-30 07:12] VITALS: BP_SYST 142
[2019-08-30] MEDS ORDERED: ALBUTEROL SULFATE 0.083% 2.5 MG/3 ML VIAL.NEB INH ONE ×2 (07:30→07:45)
[2019-08-30] MEDS ORDERED: NACL 0.9% 1,000 ML IV ONE (07:41)
[2019-08-30] MEDS ORDERED: methylPREDNISolone SOD SUCC/PF 62.5 MG/ML VIAL IVP ONE (07:45)
[2019-08-30 08:19] LABS: BASOPHILS # (AUTO) 0.1 K/uL (0.0-0.2); BASOPHILS % (AUTO) 0.7 % (0.0-2.0); EOSINOPHILS % (AUTO) 22.8 % (0.0-4.0); HEMATOCRIT 43.9 % (36-48); HEMOGLOBIN 15.3 g/dL (12.0-16.0); LYMPHOCYTES # (AUTO) 1.8 K/uL (1.0-5.5); LYMPHOCYTES % (AUTO) 19.7 % (20.5-51.5); MEAN CORPUSCULAR HEMOGLOBIN 32 pg (27-31); MEAN CORPUSCULAR HGB CONC 35 % (32-36); MEAN CORPUSCULAR VOLUME 91 fL (79.0-98.0); MONOCYTES # (AUTO) 0.5 K/uL (0.0-1.0); MONOCYTES % (AUTO) 5.6 % (1.7-9.3); NEUTROPHILS # (AUTO) 4.5 K/uL (1.8-7.7); NEUTROPHILS % (AUTO) 51.2 % (40.0-70.0); PLATELET COUNT (AUTO) 276 K/uL (130-430); RED BLOOD CELL COUNT(AUTO) 4.81 MIL/uL (4.2-6.2); RED CELL DISTRIBUTION WIDTH 14.3 % (9.0-15.0); WHITE BLOOD COUNT (AUTO) 8.9 K/uL (4.8-10.8)
[2019-08-30 08:38] LABS: CREATININE 0.6 mg/dL (0.55-1.30); POTASSIUM 4.4 mmol/L (3.5-5.1)
[2019-08-30 08:44] LABS: TOTAL BILIRUBIN 0.3 mg/dL (0.0-1.0)
[2019-08-30 09:35] LABS: CALCIUM 9.5 mg/dL (8.4-11.0)
[2019-08-30 10:10] VITALS: BP_SYST 131
== END 2019-08-30 10:05 | disposition home or self-care (01) ==
LOC: SED 06:59
DX: J45.901 Unspecified asthma with (acute) exacerbation (principal); J44.9 Chronic obstructive pulmonary disease, unspecified; E11.9 Type 2 diabetes mellitus without complications; K21.9 Gastro-esophageal reflux disease without esophagitis; F12.90 Cannabis use, unspecified, uncomplicated; F15.90 Other stimulant use, unspecified, uncomplicated; F17.210 Nicotine dependence, cigarettes, uncomplicated; Z88.8 Allergy status to other drugs, medicaments and biological substances
CPT/HCPCS: 36415; 71045; 80053; 84484; 85025; 93005; 94640; 96361; 96374; 99284; J2930; J7030; J7613

== ENCOUNTER 2019-09-13 15:22 | Inpatient (IN) | payer MEDICAID ==
[~2019-09-13] VITALS: Ht 167.6 cm; Wt 46.7 kg
[2019-09-13 15:40] VITALS: BP_SYST 138
[2019-09-13] MEDS ORDERED: IPRATROPIUM/ALBUTEROL SULFATE 3 ML AMPUL.NEB (DUONEB) INH ONE ×2 (15:45→16:00)
[2019-09-13] MEDS ORDERED: LEVOFLOXACIN 500 MG/D5W 100 ML IV ONE (15:45)
[2019-09-13] MEDS ORDERED: methylPREDNISolone SOD SUCC/PF 62.5 MG/ML VIAL IVP ONE (16:00)
[2019-09-13 17:02] LABS: BASOPHILS # (AUTO) 0.1 K/uL (0.0-0.2); BASOPHILS % (AUTO) 0.9 % (0.0-2.0); EOSINOPHILS # (AUTO) 0.7 K/uL (0.0-0.4); EOSINOPHILS % (AUTO) 9.8 % (0.0-4.0); LYMPHOCYTES # (AUTO) 2.1 K/uL (1.0-5.5); MEAN CORPUSCULAR HEMOGLOBIN 30 pg (27-31); MEAN CORPUSCULAR HGB CONC 33 % (32-36); MEAN CORPUSCULAR VOLUME 92 fL (79.0-98.0); MONOCYTES # (AUTO) 0.5 K/uL (0.0-1.0); MONOCYTES % (AUTO) 6.8 % (1.7-9.3); NEUTROPHILS # (AUTO) 4.1 K/uL (1.8-7.7); NEUTROPHILS % (AUTO) 54.5 % (40.0-70.0); PLATELET COUNT (AUTO) 257 K/uL (130-430); RED BLOOD CELL COUNT(AUTO) 4.34 MIL/uL (4.2-6.2); RED CELL DISTRIBUTION WIDTH 14.1 % (9.0-15.0); WHITE BLOOD COUNT (AUTO) 7.5 K/uL (4.8-10.8)
[2019-09-13 17:23] LABS: CALCIUM 8.4 mg/dL (8.4-11.0); CREATININE 0.49 mg/dL (0.55-1.30); POTASSIUM 3.5 mmol/L (3.5-5.1)
[2019-09-13 17:25] LABS: INR 0.9 (0.8-1.2); PROTHROMBIN TIME 9.4 SECS (9.5-12.5)
[2019-09-13 17:29] LABS: ALBUMIN 3.2 g/dL (3.4-4.8); TOTAL BILIRUBIN 0.1 mg/dL (0.0-1.0)
[2019-09-13] MEDS ORDERED: MAGNESIUM SULFATE IN WATER 100 ML IV ONE (17:45)
[2019-09-13] MEDS ORDERED: MAGNESIUM SULFATE 1 GM/2 ML VIAL ONE (18:11)
[2019-09-13] MEDS ORDERED: LevALBUTEROL HCL 1.25 MG/0.5 ML *CONC.* VIAL.NEB (XOPENEX CONC.) INH PRN (19:30)
[2019-09-13 20:00] VITALS: BP_SYST 132
[2019-09-13] MEDS: methylPREDNISolone SOD SUCC 40 MG/ML VIAL IVP SCH (23:14)
[2019-09-13 23:52] VITALS: BP_SYST 132
[2019-09-14 00:41] VITALS: BP_SYST 137
[2019-09-14] MEDS: methylPREDNISolone SOD SUCC 40 MG/ML VIAL IVP SCH ×3 (05:38→22:32)
[2019-09-14] MEDS: LevALBUTEROL HCL 1.25 MG/0.5 ML *CONC.* VIAL.NEB (XOPENEX CONC.) INH SCH ×4 (06:00→20:09)
[2019-09-14 08:32] VITALS: BP_SYST 157
[2019-09-14] MEDS: ENOXAPARIN SODIUM 40 MG/0.4 ML SYRINGE SUBCUT SCH (08:43)
[2019-09-14] MEDS ORDERED: BUDESONIDE 0.5 MG/2 ML AMPUL.NEB INH ONE (08:45)
[2019-09-14] MEDS ORDERED: FLUTICASONE 250 mCg/SALMETEROL 50 mCg DISKUS W.DEV INH SCH (09:00)
[2019-09-14 12:27] VITALS: BP_SYST 141
[2019-09-14] MEDS: IBUPROFEN 800 MG TABLET PO PRN (15:15)
[2019-09-14 15:46] VITALS: BP_SYST 122
[2019-09-14 19:00] VITALS: BP_SYST 114
[2019-09-14] MEDS ORDERED: BUDESONIDE 0.5 MG/2 ML AMPUL.NEB INH SCH (19:00)
[2019-09-14 20:00] VITALS: BP_SYST 114
[2019-09-14] MEDS ORDERED: traZODone HCL 50 MG TABLET (DESYREL) PO SCH (21:00)
[2019-09-15] VITALS: BP_SYST 110
[2019-09-15] MEDS: LevALBUTEROL HCL 1.25 MG/0.5 ML *CONC.* VIAL.NEB (XOPENEX CONC.) INH SCH
[2019-09-15 08:00] VITALS: BP_SYST 115
[2019-09-15] MEDS: methylPREDNISolone SOD SUCC 40 MG/ML VIAL IVP SCH (08:29)
[2019-09-15] MEDS: IBUPROFEN 800 MG TABLET PO PRN (08:29)
[2019-09-15] MEDS: ENOXAPARIN SODIUM 40 MG/0.4 ML SYRINGE SUBCUT SCH (08:30)
[2019-09-15 12:00] VITALS: BP_SYST 141
[2019-09-15] MEDS ORDERED: MOME13HF2 INH (15:40)
[2019-09-15] MEDS ORDERED: PRED5TAB PO (15:40)
[2019-09-15] MEDS ORDERED: TRAZ-250 PO (15:40)
[2019-09-15] MEDS ORDERED: IBUP-1970 PO (15:40)
[2019-09-15] MEDS ORDERED: ALBMDI INH (15:40)
[2019-09-15 15:51] VITALS: BP_SYST 147
[2019-09-15 16:00] VITALS: BP_SYST 147
[2019-09-15] MEDS ORDERED: IPRA4AER INH (16:19)
== END 2019-09-15 17:17 | disposition home or self-care (01) | DRG 140 ==
LOC: SED 15:22 → SMU 19:20
PROVIDERS: ADMIT Family Medicine; ATTEND Family Medicine
DX: J44.1 Chronic obstructive pulmonary disease with (acute) exacerbation (principal); E44.1 Mild protein-calorie malnutrition; E11.9 Type 2 diabetes mellitus without complications; F17.210 Nicotine dependence, cigarettes, uncomplicated; K21.9 Gastro-esophageal reflux disease without esophagitis; Z79.899 Other long term (current) drug therapy; Z88.8 Allergy status to other drugs, medicaments and biological substances; Z88.1 Allergy status to other antibiotic agents; Z59.0 Homelessness
CPT/HCPCS: 36415; 71045; 80053; 83605; 83880; 84484; 85025; 85610-TC; 86710; 87040-TC; 87081; 93005; 94640; 94760; 96365; 96367; 96375; 99285; J1030; J1650; J1956; J2930; J3475; J7612; J7620; J7626

== ENCOUNTER 2019-11-05 13:29 | Emergency (ER) | payer MEDICAID ==
[~2019-11-05] VITALS: Ht 167.6 cm; Wt 40.8 kg
[~2019-11-05 13:29] MED LIST changes: -FLUT1DIS3 INH; +IBUP-1970 PO; +IPRA4AER INH; +PRED5TAB PO; +TRAZ-250 PO
[2019-11-05 13:30] VITALS: BP_SYST 141
--- NOTE | 2019-11-05 13:30 | NUR ---
BROUGHT IN BY [facility], PLACED IN BED #4, TRIAGED. REPORT GIVEN TO MADI
--- NOTE | 2019-11-05 13:35 | NUR ---
pt arrives via BLS for increasing SOB. Pt has hx of asthma. Current o2 sat 93% on RA. Will continue to monitor.
--- NOTE | 2019-11-05 13:38 | NUR ---
ER at bedside examining patient.
--- NOTE | 2019-11-05 13:40 | NUR ---
pt getting a breathing tx at the bedside.
[2019-11-05] MEDS ORDERED: LevALBUTEROL HCL 1.25 MG/0.5 ML *CONC.* VIAL.NEB (XOPENEX CONC.) INH ONE (14:00)
--- NOTE | 2019-11-05 14:15 | NUR ---
pt reports feeling better. Current O2 sat is 95% on RA
[2019-11-05 15:10] VITALS: BP_SYST 148
--- NOTE | 2019-11-05 15:10 | NUR ---
Patient given written and verbal discharge instructions and verbalizes understanding. ER MD discussed with patient the results and treatment provided. Patient in stable condition. ID arm band removed. Rx of Symbicort, Ventolin, Combivent, and Prednisone given. Patient educated on pain management and to follow up with PMD. Pain Scale 0/10. Opportunity for questions provided and answered. Medication side effect fact sheet provided.
== END 2019-11-05 15:10 | disposition home or self-care (01) ==
LOC: SED 13:29
DX: J45.901 Unspecified asthma with (acute) exacerbation (principal); J44.9 Chronic obstructive pulmonary disease, unspecified; F15.10 Other stimulant abuse, uncomplicated; E11.9 Type 2 diabetes mellitus without complications; K21.9 Gastro-esophageal reflux disease without esophagitis; Z88.8 Allergy status to other drugs, medicaments and biological substances; Z79.899 Other long term (current) drug therapy
CPT/HCPCS: 94640; 99283; J7612

== ENCOUNTER 2019-11-22 20:37 | Emergency (ER) | payer MEDICAID ==
[~2019-11-22] VITALS: Ht 167.6 cm; Wt 45.4 kg
[2019-11-22 20:40] VITALS: BP_SYST 142
--- NOTE | 2019-11-22 20:40 | NUR ---
Patient to ER bed 2 to gown for evaluation. Side rails up.
--- NOTE | 2019-11-22 20:40 | NUR ---
Pt brought in [facility]. Pt awake, alert, oriented x4. Pt states that she has had cough, congestion, shortness of breath for approximately 1 week with generalized body aches and tactile fever. Pt denies chest pain, nausea, vomiting, diarrhea, any other medical complaint at this time. Pt ambulatory with steady gait. Pt resting in ed bed, mildly agitated, stating that "staff here are a bunch of assholes, they never bring my water when i want it". Pt also states "I ran out of meth 2 days ago, and meth usually helps my asthma go away". Vital signs stable.
--- NOTE | 2019-11-22 21:08 | NUR ---
ER at bedside examining patient.
[2019-11-22] MEDS ORDERED: IPRATROPIUM/ALBUTEROL SULFATE 3 ML AMPUL.NEB (DUONEB) INH ONE (22:15)
[2019-11-22 22:26] LABS: BASOPHILS % (AUTO) 0.5 % (0.0-2.0); EOSINOPHILS # (AUTO) 1.9 K/uL (0.0-0.4); EOSINOPHILS % (AUTO) 28.9 % (0.0-4.0); HEMATOCRIT 38.9 % (36-48); HEMOGLOBIN 12.6 g/dL (12.0-16.0); LYMPHOCYTES # (AUTO) 1.7 K/uL (1.0-5.5); LYMPHOCYTES % (AUTO) 26.2 % (20.5-51.5); MEAN CORPUSCULAR HEMOGLOBIN 29 pg (27-31); MEAN CORPUSCULAR HGB CONC 33 % (32-36); MEAN CORPUSCULAR VOLUME 90 fL (79.0-98.0); MONOCYTES # (AUTO) 0.4 K/uL (0.0-1.0); MONOCYTES % (AUTO) 6.7 % (1.7-9.3); NEUTROPHILS # (AUTO) 2.5 K/uL (1.8-7.7); NEUTROPHILS % (AUTO) 37.7 % (40.0-70.0); PLATELET COUNT (AUTO) 295 K/uL (130-430); RED BLOOD CELL COUNT(AUTO) 4.32 MIL/uL (4.2-6.2); RED CELL DISTRIBUTION WIDTH 14.7 % (9.0-15.0); WHITE BLOOD COUNT (AUTO) 6.6 K/uL (4.8-10.8)
[2019-11-22 22:41] LABS: ANION GAP 1 (5-15); CALCIUM 8.1 mg/dL (8.4-11.0); CHLORIDE 104 mmol/L (98-107); CREATININE 0.58 mg/dL (0.55-1.30); GLUCOSE 121 mg/dL (70-99); POTASSIUM 3.5 mmol/L (3.5-5.1); PROTHROMBIN TIME 9.9 SECS (9.5-12.5); SODIUM SERUM 135 mmol/L (136-145); UREA NITROGEN, BLOOD 16 mg/dL (8-21)
[2019-11-22 22:47] LABS: ALANINE AMINOTRANSFERASE 31 U/L (12-78); ALBUMIN 2.9 g/dL (3.4-4.8); ASPARTATE AMINOTRANSFERASE 27 U/L (10-37); TOTAL BILIRUBIN 0.2 mg/dL (0.0-1.0)
[2019-11-22 22:48] LABS: GFR AFRICAN AMERICAN 142 mL/min (>90)
[2019-11-22 22:49] LABS: ALCOHOL, BLOOD < 3 mg/dL (<10)
--- NOTE | 2019-11-22 23:30 | NUR ---
Pt resting in ED bed. No acute distress at this time. Pt given food per request.
[2019-11-23] MEDS ORDERED: AZITHROMYCIN 250 MG TABLET PO ONE (00:45)
--- NOTE | 2019-11-23 01:10 | NUR ---
Bedside, re-examining and informing patient of plan of care.
[2019-11-23 02:15] VITALS: BP_SYST 141
--- NOTE | 2019-11-23 02:15 | NUR ---
Patient given written and verbal discharge instructions and verbalizes understanding. ER MD discussed with patient the results and treatment provided. Patient in stable condition. ID arm band removed. Rx of prednizone, zithromax, albuterol given. Patient educated on pain management and to follow up with PMD. Pain Scale 0/10. Opportunity for questions provided and answered. Medication side effect fact sheet provided.
== END 2019-11-23 02:15 | disposition home or self-care (01) ==
LOC: SED 20:37
DX: J44.1 Chronic obstructive pulmonary disease with (acute) exacerbation (principal); J45.901 Unspecified asthma with (acute) exacerbation; E11.9 Type 2 diabetes mellitus without complications; K21.9 Gastro-esophageal reflux disease without esophagitis; F15.90 Other stimulant use, unspecified, uncomplicated; Z88.8 Allergy status to other drugs, medicaments and biological substances; Z79.899 Other long term (current) drug therapy
CPT/HCPCS: 36415; 71045; 80053; 83880; 84484; 85025; 85610; 85730; 93005; 94640; 99285; G0482; J7620; Q0144

== ENCOUNTER 2019-11-23 12:03 | Emergency (ER) | payer MEDICAID ==
[~2019-11-23] VITALS: Ht 170.2 cm; Wt 45.4 kg
[2019-11-23 12:44] VITALS: BP_SYST 143
[2019-11-23] MEDS ORDERED: AZITHROMYCIN 250 MG TABLET PO ONE ×2 (13:30→13:45)
[2019-11-23] MEDS ORDERED: IPRATROPIUM/ALBUTEROL SULFATE 3 ML AMPUL.NEB (DUONEB) INH ONE (13:30)
[2019-11-23 14:59] VITALS: BP_SYST 148
== END 2019-11-23 14:55 | disposition home or self-care (01) ==
LOC: SED 12:03
DX: J18.9 Pneumonia, unspecified organism (principal); J44.9 Chronic obstructive pulmonary disease, unspecified; K21.9 Gastro-esophageal reflux disease without esophagitis; E11.9 Type 2 diabetes mellitus without complications; F17.210 Nicotine dependence, cigarettes, uncomplicated; F12.90 Cannabis use, unspecified, uncomplicated; Z79.899 Other long term (current) drug therapy; Z88.1 Allergy status to other antibiotic agents; Z88.4 Allergy status to anesthetic agent
CPT/HCPCS: 94640; 99283; J7620; Q0144

== ENCOUNTER 2019-12-01 17:19 | Emergency (ER) | payer MEDICAID ==
[~2019-12-01] VITALS: Ht 167.6 cm; Wt 45.4 kg
[2019-12-01 17:22] VITALS: BP_SYST 138
[2019-12-01 21:41] LABS: BASOPHILS % (AUTO) 0.6 % (0.0-2.0); EOSINOPHILS % (AUTO) 22.5 % (0.0-4.0); HEMOGLOBIN 14.2 g/dL (12.0-16.0); LYMPHOCYTES # (AUTO) 2.1 K/uL (1.0-5.5); LYMPHOCYTES % (AUTO) 23.4 % (20.5-51.5); MEAN CORPUSCULAR HEMOGLOBIN 30 pg (27-31); MEAN CORPUSCULAR HGB CONC 32 % (32-36); MEAN CORPUSCULAR VOLUME 91 fL (79.0-98.0); MONOCYTES # (AUTO) 0.7 K/uL (0.0-1.0); NEUTROPHILS # (AUTO) 4.1 K/uL (1.8-7.7); NEUTROPHILS % (AUTO) 45.5 % (40.0-70.0); PLATELET COUNT (AUTO) 413 K/uL (130-430); RED BLOOD CELL COUNT(AUTO) 4.81 MIL/uL (4.2-6.2); RED CELL DISTRIBUTION WIDTH 14.2 % (9.0-15.0); WHITE BLOOD COUNT (AUTO) 8.9 K/uL (4.8-10.8)
[2019-12-01 21:48] LABS: INR 0.9 (0.8-1.2); PROTHROMBIN TIME 9.5 SECS (9.5-12.5)
[2019-12-01 21:49] LABS: CALCIUM 8.5 mg/dL (8.4-11.0); CREATININE 0.62 mg/dL (0.55-1.30); POTASSIUM 4.7 mmol/L (3.5-5.1)
[2019-12-01 21:55] LABS: TOTAL BILIRUBIN 0.2 mg/dL (0.0-1.0)
[2019-12-01] MEDS ORDERED: IPRATROPIUM/ALBUTEROL SULFATE 3 ML AMPUL.NEB (DUONEB) INH ONE (22:00)
[2019-12-01 22:58] VITALS: BP_SYST 126
== END 2019-12-01 22:58 | disposition home or self-care (01) ==
LOC: SED 17:19
DX: J20.9 Acute bronchitis, unspecified (principal); J45.901 Unspecified asthma with (acute) exacerbation; K21.9 Gastro-esophageal reflux disease without esophagitis; E11.9 Type 2 diabetes mellitus without complications; Z87.891 Personal history of nicotine dependence; Z79.899 Other long term (current) drug therapy; Z88.4 Allergy status to anesthetic agent; Z88.8 Allergy status to other drugs, medicaments and biological substances; Z88.1 Allergy status to other antibiotic agents
CPT/HCPCS: 36415; 71045; 80053; 82550-TC; 83880; 84484; 85025; 85379; 85610-TC; 94640; 99285

== ENCOUNTER 2019-12-07 18:16 | Emergency (ER) | payer MEDICAID ==
[~2019-12-07] VITALS: Ht 167.6 cm; Wt 45.4 kg
--- NOTE | 2019-12-07 18:40 | NUR ---
PATIENT TO ER #7, STAT EKG AND PLACED ON MONITOR, SAO2 AND ABP
--- NOTE | 2019-12-07 18:45 | NUR ---
Dr. Montano at bedside for examination.
[2019-12-07 18:54] VITALS: BP_SYST 117
[2019-12-07] MEDS ORDERED: IPRATROPIUM BROM 0.5 MG/2.5 ML VIAL.NEB (ATROVENT) INH ONE (19:00)
[2019-12-07] MEDS ORDERED: ALBUTEROL SULFATE 0.083% 2.5 MG/3 ML VIAL.NEB INH ONE ×2 (19:00→20:30)
[2019-12-07] MEDS ORDERED: methylPREDNISolone SOD SUCC/PF 62.5 MG/ML VIAL IVP ONE (19:00)
[2019-12-07] MEDS ORDERED: MAGNESIUM SULFATE 1 GM in NS 50 ML IV ONE (19:00)
--- NOTE | 2019-12-07 19:10 | NUR ---
Patient received in ED with c/o SOB that has gradually worsed for the last couple of days. Patient reported to have been sick with pneumonia x 2 weeks but have noticed increased work of breathing recently. Patient at this time is watching television and is in good moods. Patient able to converse, cooperative, and make needs known. Patient breathing evenly and unlabored, no signs of distress noted at this time.
[2019-12-07 19:44] LABS: BASOPHILS % (AUTO) 0.7 % (0.0-2.0); EOSINOPHILS # (AUTO) 1.1 K/uL (0.0-0.4); HEMATOCRIT 44.2 % (36-48); HEMOGLOBIN 14.2 g/dL (12.0-16.0); LYMPHOCYTES % (AUTO) 32.5 % (20.5-51.5); MEAN CORPUSCULAR HEMOGLOBIN 29 pg (27-31); MEAN CORPUSCULAR HGB CONC 32 % (32-36); MEAN CORPUSCULAR VOLUME 91 fL (79.0-98.0); MONOCYTES # (AUTO) 0.4 K/uL (0.0-1.0); MONOCYTES % (AUTO) 6.7 % (1.7-9.3); NEUTROPHILS # (AUTO) 2.6 K/uL (1.8-7.7); NEUTROPHILS % (AUTO) 42.1 % (40.0-70.0); PLATELET COUNT (AUTO) 339 K/uL (130-430); RED BLOOD CELL COUNT(AUTO) 4.84 MIL/uL (4.2-6.2); RED CELL DISTRIBUTION WIDTH 14.4 % (9.0-15.0); WHITE BLOOD COUNT (AUTO) 6.2 K/uL (4.8-10.8)
[2019-12-07] MEDS ORDERED: MAGNESIUM SULFATE 1 GM/2 ML VIAL ONE (19:45)
[2019-12-07 19:48] LABS: ANION GAP 5 (5-15); CALCIUM 8.5 mg/dL (8.4-11.0); CHLORIDE 104 mmol/L (98-107); CREATININE 0.69 mg/dL (0.55-1.30); GFR AFRICAN AMERICAN 116 mL/min (>90); GLUCOSE 125 mg/dL (70-99); POTASSIUM 3.7 mmol/L (3.5-5.1); SODIUM SERUM 141 mmol/L (136-145); UREA NITROGEN, BLOOD 18 mg/dL (8-21)
[2019-12-07] MEDS ORDERED: MAGNESIUM SULFATE/D5W 100 ML IV ONE (19:48)
[2019-12-07 19:56] LABS: ALANINE AMINOTRANSFERASE 26 U/L (12-78); ALBUMIN 3.1 g/dL (3.4-4.8); ASPARTATE AMINOTRANSFERASE 19 U/L (10-37); TOTAL BILIRUBIN 0.2 mg/dL (0.0-1.0)
--- NOTE | 2019-12-07 20:35 | NUR ---
IV levaquin finished infusing.
--- NOTE | 2019-12-07 20:43 | NUR ---
IV med Antibiotic well tolerated
[2019-12-07] MEDS ORDERED: LEVOFLOXACIN 500 MG TABLET PO ONE (20:45)
--- NOTE | 2019-12-07 21:59 | NUR ---
VSS no s/s of acute distress. Mag IV therapy well tolerated
[2019-12-07 22:58] VITALS: BP_SYST 117
--- NOTE | 2019-12-07 22:58 | NUR ---
Patient given written and verbal discharge instructions and verbalizes understanding. ER MD discussed with patient the results and treatment provided. Patient in stable condition. ID arm band removed. IV catheter removed intact and dressing applied, no active bleeding. Rx of Albuterol and Levaquin given. Patient educated on pain management and to follow up with PMD. Pain Scale 0/10 Opportunity for questions provided and answered. Medication side effect fact sheet provided.
== END 2019-12-07 22:58 | disposition home or self-care (01) ==
LOC: SED 18:16
DX: J44.1 Chronic obstructive pulmonary disease with (acute) exacerbation (principal); E11.9 Type 2 diabetes mellitus without complications; K21.9 Gastro-esophageal reflux disease without esophagitis; F17.210 Nicotine dependence, cigarettes, uncomplicated; Z79.899 Other long term (current) drug therapy; Z88.1 Allergy status to other antibiotic agents; Z88.4 Allergy status to anesthetic agent; Z88.8 Allergy status to other drugs, medicaments and biological substances
CPT/HCPCS: 36415; 71045; 80053; 83880; 84484; 85025; 86710; 87040; 93005; 94640; 96365; 96366; 96367; 96375; 99285; J1956; J2930; J3475; J7613

== ENCOUNTER 2020-02-16 13:19 | Emergency (ER) | payer MEDICAID ==
[~2020-02-16] VITALS: Ht 157.5 cm; Wt 38.6 kg
--- NOTE | 2020-02-16 13:23 | NUR ---
Patient to ER bed 05 to gown for evaluation. Side rails up.
--- NOTE | 2020-02-16 13:40 | NUR ---
RESTLESS, EXCITED, UNABLE TO SIT STILL. TALKING AT A FAST PACE. FULL COMPLETE SENTENCES. PT TELLING ELABORATE GRANDIOUS STORIES. DIFFICULTY ANSWERING SIMPLE QUESTION DUE TO TALKATIVE NATURE.
[2020-02-16] MEDS ORDERED: MIDAZOLAM HCL 5 MG/5 ML VIAL IVP ONE (14:00)
[2020-02-16] MEDS ORDERED: KETOROLAC TROMETHAMINE 60 MG/2 ML VIAL IM ONE (14:00)
[2020-02-16] MEDS ORDERED: KETAMINE 30 MG/3 ML SYRINGE IVP ONE (14:00)
[2020-02-16] MEDS ORDERED: NACL 0.9% 1,000 ML IV ONE (14:00)
--- NOTE | 2020-02-16 14:00 | NUR ---
# 20 gauge angiocath placed to RAC. Use of asceptic technique. Opsite placed over site. Blood return noted. Blood for lab drawn from site. Flushed with 10 cc of normal saline. No evidence of infiltration noted. Patient tolerated well.
--- NOTE | 2020-02-16 14:21 | NUR ---
Pt moved to bed 1 for moderate sedation.
[2020-02-16] MEDS ORDERED: IPRATROPIUM/ALBUTEROL SULFATE 3 ML AMPUL.NEB (DUONEB) INH ONE (14:30)
--- NOTE | 2020-02-16 14:34 | NUR ---
RT AT BEDSIDE. BREATHING TREATEMNT IN PROGRESS.
--- NOTE | 2020-02-16 14:35 | NUR ---
Sedation started. RT at bedside . pvc monitor in place. 02 via NC at 2L. Breathing treatment administered by RT. See Emar for medication administration.
--- NOTE | 2020-02-16 14:40 | NUR ---
ER MD AT BEDSIDE TO RELOCATE LT SHOULDER
--- NOTE | 2020-02-16 14:45 | NUR ---
Left arm sling placed on patient.
--- NOTE | 2020-02-16 14:49 | NUR ---
[facility] TOLERATED PROCEDURE WELL. SR ON MONITOR SAO2 99% O2 2L NC.
--- NOTE | 2020-02-16 14:51 | NUR ---
POST PROCEDURE SHOULDER X-RAY COMPLETED, DR CRUZ TO REVIEW PT ALERT, CALM, RESP UNLABORED, COMMUNICATES IN FULL COMPLETE SENTENCES
--- NOTE | 2020-02-16 14:58 | NUR ---
Pt is awake and talking to staff. V/S stable, do distress noted.
--- NOTE | 2020-02-16 15:15 | NUR ---
Laboratory Analyst at bedside.
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
[2020-02-16] MEDS ORDERED: hydrALAZINE HCL 20 MG/ML VIAL IVP ONE (16:15)
--- NOTE | 2020-02-16 16:30 | NUR ---
Patient given written and verbal discharge instructions and verbalizes understanding. ER MD discussed with patient the results and treatment provided. Patient in stable condition. ID arm band removed. IV catheter removed intact and dressing applied, no active bleeding. Patient educated on pain management and to follow up with PMD. Pain Scale 0. Opportunity for questions provided and answered. Medication side effect fact sheet provided.
[2020-02-16 16:38] VITALS: BP_SYST 178
== END 2020-02-16 16:38 | disposition home or self-care (01) ==
LOC: SED 13:19
DX: S42.002A Fracture of unspecified part of left clavicle, initial encounter for closed fracture (principal); M24.412 Recurrent dislocation, left shoulder; J44.9 Chronic obstructive pulmonary disease, unspecified; K21.9 Gastro-esophageal reflux disease without esophagitis; E11.9 Type 2 diabetes mellitus without complications; F15.90 Other stimulant use, unspecified, uncomplicated; Z88.8 Allergy status to other drugs, medicaments and biological substances; Z79.899 Other long term (current) drug therapy; Y04.0XXA Assault by unarmed brawl or fight, initial encounter; Y93.89 Activity, other specified; Y92.89 Other specified places as the place of occurrence of the external cause; Y99.8 Other external cause status
CPT/HCPCS: 23650; 73030; 94640; 96372; 96374; 99285; J0360; J1885; J2250; J7030

== ENCOUNTER 2020-03-04 18:14 | Emergency (ER) | payer MEDICAID ==
[~2020-03-04] VITALS: Ht 157.5 cm; Wt 38.6 kg
--- NOTE | 2020-03-04 18:15 | NUR ---
Patient triaged and placed in waiting room. VSS and patient appears in no acute distress at this time. Accompanied by self, resting in bed, cardiac exercise specialist placed and MD notified of need for MSE.
--- NOTE | 2020-03-04 18:20 | NUR ---
Pt bib ambulance with c/o SOB and wheezing. Hx of Asthma. V/S stable, pt is afebrile. Currently resting in bed, will continue to monitor.
[2020-03-04] MEDS ORDERED: NACL 0.9% 1,000 ML IV ONE (18:30)
[2020-03-04] MEDS ORDERED: methylPREDNISolone SOD SUCC/PF 62.5 MG/ML VIAL IVP ONE (18:30)
[2020-03-04] MEDS ORDERED: IPRATROPIUM/ALBUTEROL SULFATE 3 ML AMPUL.NEB (DUONEB) INH ONE (18:30)
--- NOTE | 2020-03-04 18:30 | NUR ---
Respiratory at bedside administering breathing treatment as ordered.
[2020-03-04 18:32] VITALS: BP_SYST 142
--- NOTE | 2020-03-04 18:45 | NUR ---
# 20 gauge angiocath placed to LFA. Use of asceptic technique. Opsite placed over site. Blood return noted. Flushed with 10 cc of normal saline. No evidence of infiltration noted. Patient tolerated well.
--- NOTE | 2020-03-04 18:50 | NUR ---
Solumedrol given IVP as ordered
--- NOTE | 2020-03-04 18:55 | NUR ---
1L NS bolus infusing as ordered
--- NOTE | 2020-03-04 19:12 | NUR ---
Report recieved from [facility].
--- NOTE | 2020-03-04 19:12 | NUR ---
Care of patient endorsed to MARGARITO Dixon
--- NOTE | 2020-03-04 19:21 | NUR ---
Pt stable, w/ no respiratory distress. Vitals updated. Pt finished breathing tx, .
[2020-03-04] MEDS ORDERED: ALBUTEROL SULFATE 0.083% 2.5 MG/3 ML VIAL.NEB INH ONE (19:30)
--- NOTE | 2020-03-04 20:20 | NUR ---
Pt given dinner. Awaiting D/C. Pt provided pick up operator- Roly, number [phone].
[2020-03-04 20:44] VITALS: BP_SYST 165
--- NOTE | 2020-03-04 20:44 | NUR ---
Patient given written and verbal discharge instructions and verbalizes understanding. ER MD discussed with patient the results and treatment provided. Patient in stable condition. ID arm band removed. IV catheter removed intact and dressing applied, no active bleeding. Rx of Albuterol and Prednisone given. Patient educated on pain management and to follow up with PMD. Opportunity for questions provided and answered. Medication side effect fact sheet provided.
== END 2020-03-04 20:44 | disposition home or self-care (01) ==
LOC: SED 18:14
DX: J45.901 Unspecified asthma with (acute) exacerbation (principal); F15.10 Other stimulant abuse, uncomplicated; F17.210 Nicotine dependence, cigarettes, uncomplicated; E11.9 Type 2 diabetes mellitus without complications; K21.9 Gastro-esophageal reflux disease without esophagitis; Z79.899 Other long term (current) drug therapy; Z88.4 Allergy status to anesthetic agent; Z88.1 Allergy status to other antibiotic agents; Z91.018 Allergy to other foods
CPT/HCPCS: 94640; 96374; 99284; J2930; J7030

== ENCOUNTER 2020-03-20 08:08 | Emergency (ER) | payer MEDICAID ==
[~2020-03-20] VITALS: Ht 160 cm; Wt 47.6 kg
[2020-03-20] MEDS ORDERED: NACL 0.9% 1,000 ML IV ONE (08:11)
[2020-03-20 08:15] VITALS: BP_SYST 116
[2020-03-20] MEDS ORDERED: IPRATROPIUM BROM 0.5 MG/2.5 ML VIAL.NEB (ATROVENT) INH ONE ×2 (08:15→10:27)
[2020-03-20] MEDS ORDERED: ALBUTEROL SULFATE 0.083% 2.5 MG/3 ML VIAL.NEB INH ONE ×2 (08:15→10:27)
[2020-03-20] MEDS ORDERED: methylPREDNISolone SOD SUCC/PF 62.5 MG/ML VIAL IVP ONE (08:15)
--- NOTE | 2020-03-20 08:16 | NUR ---
Patient to ER bed 8 to gown for evaluation. Side rails up. Report given to Deshawn.
--- NOTE | 2020-03-20 08:18 | NUR ---
pt arrives via ACLS d/t increasing SOB. Pt is currently on a breathing tx, wheezings a re audible. Current o2 sat is 94%
--- NOTE | 2020-03-20 08:20 | NUR ---
pt getting a breathing tx at the bedside
--- NOTE | 2020-03-20 08:23 | NUR ---
pt getting a CXR
--- NOTE | 2020-03-20 08:31 | NUR ---
ER at bedside examining patient.
--- NOTE | 2020-03-20 08:48 | NUR ---
# 24 gauge angiocath placed to left hand. Use of asceptic technique. Opsite placed over site. Blood return noted. Blood for lab drawn from site. Flushed with 10 cc of normal saline. No evidence of infiltration noted. Patient tolerated well.
[2020-03-20] MEDS ORDERED: ACETAMINOPHEN 500 MG TABLET PO ONE (09:00)
--- NOTE | 2020-03-20 09:10 | NUR ---
Medicated the pt w/ NS 1l, Solu-Medrol, and Tylenol per MD order.
--- NOTE | 2020-03-20 10:00 | NUR ---
Urine sample collected and sent the lab
[2020-03-20 10:13] LABS: BASOPHILS # (AUTO) 0.1 K/uL (0.0-0.2); BASOPHILS % (AUTO) 0.7 % (0.0-2.0); EOSINOPHILS # (AUTO) 1.2 K/uL (0.0-0.4); EOSINOPHILS % (AUTO) 15.8 % (0.0-4.0); HEMOGLOBIN 12.7 g/dL (12.0-16.0); LYMPHOCYTES # (AUTO) 1.5 K/uL (1.0-5.5); LYMPHOCYTES % (AUTO) 19.8 % (20.5-51.5); MEAN CORPUSCULAR HEMOGLOBIN 30 pg (27-31); MEAN CORPUSCULAR HGB CONC 33 % (32-36); MEAN CORPUSCULAR VOLUME 91 fL (79.0-98.0); MONOCYTES # (AUTO) 0.7 K/uL (0.0-1.0); MONOCYTES % (AUTO) 8.5 % (1.7-9.3); NEUTROPHILS # (AUTO) 4.3 K/uL (1.8-7.7); NEUTROPHILS % (AUTO) 55.2 % (40.0-70.0); PLATELET COUNT (AUTO) 328 K/uL (130-430); RED BLOOD CELL COUNT(AUTO) 4.27 MIL/uL (4.2-6.2); RED CELL DISTRIBUTION WIDTH 15.8 % (9.0-15.0); WHITE BLOOD COUNT (AUTO) 7.8 K/uL (4.8-10.8)
[2020-03-20 10:27] LABS: CALCIUM 8.2 mg/dL (8.4-11.0); CREATININE 0.49 mg/dL (0.55-1.30)
[2020-03-20 10:29] LABS: BARBITURATE, URINE NEGATIVE (NEG <=200); BENZODIAZEPINE, URINE NEGATIVE (NEG <=150); CANNABINOID, URINE NEGATIVE (NEG <=50); COCAINE, URINE NEGATIVE (NEG <=150); METHAMPHETAMINES SCREEN,URINE POSITIVE (NEG <=500); OPIATE, URINE NEGATIVE (NEG <=100); PHENCYCLIDINE SCREEN,URINE NEGATIVE (NEG <=25); UR TRICYCLIC ANTIDEPRESSANTS NEGATIVE (NEG <=300); URINE AMPHETAMINE POSITIVE (NEG <=500); URINE METHADONE NEGATIVE (NEG <=200); URINE OXYCODONE SCREEN NEGATIVE (NEG <=100); URINE PROPOXYPHENE SCREEN NEGATIVE (NEG <=300)
[2020-03-20 10:30] LABS: PROTHROMBIN TIME 9.7 SECS (9.5-12.5)
[2020-03-20 10:42] LABS: ALBUMIN 3.2 g/dL (3.4-4.8); TOTAL BILIRUBIN 0.3 mg/dL (0.0-1.0)
--- NOTE | 2020-03-20 11:00 | NUR ---
pt is currently sleeping comfortable in bed.
[2020-03-20 11:05] LABS: BILIRUBIN,URINE NEGATIVE (NEGATIVE); BLOOD, URINE NEGATIVE (NEGATIVE); CLARITY/URINE CLEAR (CLEAR); COLOR,URINE YELLOW (YELLOW); GLUCOSE,URINE NEGATIVE (NEGATIVE); KETONES,URINE NEGATIVE (NEGATIVE); LEUKOCYTE ESTERASE ,URINE 1+ (NEGATIVE); NITRITE, URINE POSITIVE (NEGATIVE); PROTEIN URINE NEGATIVE (NEGATIVE); UROBILINOGEN,URINE 0.2 (0.2-1.0)
[2020-03-20 11:22] LABS: RBC,URINE 0-3 /HPF (0-3)
[2020-03-20 11:23] LABS: BACTERIA,URINE MODERATE /HPF (None Seen)
[2020-03-20 11:35] VITALS: BP_SYST 129
--- NOTE | 2020-03-20 11:36 | NUR ---
Patient given written and verbal discharge instructions and verbalizes understanding. ER MD discussed with patient the results and treatment provided. Patient in stable condition. ID arm band removed. IV catheter removed intact and dressing applied, no active bleeding. Rx of Keflex, Symbicort, albuterol, and Prednisone given. Patient educated on pain management and to follow up with PMD. Pain Scale 0/10 Opportunity for questions provided and answered. Medication side effect fact sheet provided. Pt released to a responsible adult.
== END 2020-03-20 11:36 | disposition home or self-care (01) ==
LOC: SED 08:08 → EEVIPCON 08:08 → SED 11:36
DX: J45.901 Unspecified asthma with (acute) exacerbation (principal); J44.9 Chronic obstructive pulmonary disease, unspecified; F15.10 Other stimulant abuse, uncomplicated; E11.9 Type 2 diabetes mellitus without complications; K21.9 Gastro-esophageal reflux disease without esophagitis; Z88.1 Allergy status to other antibiotic agents; Z88.8 Allergy status to other drugs, medicaments and biological substances; Z79.899 Other long term (current) drug therapy
CPT/HCPCS: 36415; 36600; 71045; 80053; 80307; 81000; 82150; 82550; 82803; 83605; 83690; 84484; 85025; 85610; 85730; 87040; 87086; 93005; 94640; 96374; 99285; J2930; J7030; J7613

== ENCOUNTER 2020-04-12 07:57 | Emergency (ER) | payer MEDICAID, SELFPAY ==
[~2020-04-12] VITALS: Ht 167.6 cm; Wt 47.6 kg
[2020-04-12 08:00] VITALS: BP_SYST 146
[2020-04-12] MEDS ORDERED: IPRATROPIUM/ALBUTEROL SULFATE 3 ML AMPUL.NEB (DUONEB) INH ONE ×2 (08:15→09:00)
[2020-04-12] MEDS ORDERED: methylPREDNISolone SOD SUCC/PF 62.5 MG/ML VIAL IM ONE (08:15)
[2020-04-12] MEDS ORDERED: IBUPROFEN 600 MG TABLET PO ONE (08:15)
[2020-04-12] MEDS ORDERED: LEVOFLOXACIN 500 MG TABLET PO ONE (09:00)
[2020-04-12 09:26] VITALS: BP_SYST 126
== END 2020-04-12 09:26 | disposition home or self-care (01) ==
LOC: SED 07:57
DX: J44.1 Chronic obstructive pulmonary disease with (acute) exacerbation (principal); E11.9 Type 2 diabetes mellitus without complications; K21.9 Gastro-esophageal reflux disease without esophagitis; F17.210 Nicotine dependence, cigarettes, uncomplicated; Z71.6 Tobacco abuse counseling; Z20.828 Contact with and (suspected) exposure to other viral communicable diseases; Z88.8 Allergy status to other drugs, medicaments and biological substances; Z79.899 Other long term (current) drug therapy
CPT/HCPCS: 71045; 94640; 96372; 99284; C9803; J2930; U0003

== ENCOUNTER 2020-05-18 16:25 | Emergency (ER) | payer MEDICAID, SELFPAY ==
[~2020-05-18] VITALS: Ht 167.6 cm; Wt 45.4 kg
[2020-05-18 16:39] VITALS: BP_SYST 128
--- NOTE | 2020-05-18 16:40 | NUR ---
pt in bed 1, side rails up. Slight tachypnea noted. Pt is anxious and hyperverbal.
--- NOTE | 2020-05-18 16:42 | NUR ---
ER Dr. Perdue at bedside examining patient.
--- NOTE | 2020-05-18 16:42 | NUR ---
Pt brought by self, A&Ox4, pt presents to ER with mild SOB, states she does not have her inhalors,O2 95 %, afebrile, denies cough, skin pink and warm, cap refill <3.
[2020-05-18] MEDS ORDERED: PREDNISONE 20 MG TABLET PO ONE (16:45)
[2020-05-18] MEDS ORDERED: IPRATROPIUM/ALBUTEROL SULFATE 3 ML AMPUL.NEB (DUONEB) INH ONE (16:45)
[2020-05-18 17:25] VITALS: BP_SYST 145
--- NOTE | 2020-05-18 17:26 | NUR ---
Patient given written and verbal discharge instructions and verbalizes understanding. ER MD discussed with patient the results and treatment provided. Patient in stable condition. ID arm band removed. Rx of Albuterol, Combivent and Prednisone given. Patient educated on pain management and to follow up with PMD. Pain Scale 0/10 Opportunity for questions provided and answered. Medication side effect fact sheet provided.
== END 2020-05-18 17:25 | disposition home or self-care (01) ==
LOC: SED 16:25
DX: J45.901 Unspecified asthma with (acute) exacerbation (principal); F15.10 Other stimulant abuse, uncomplicated; J44.9 Chronic obstructive pulmonary disease, unspecified; E11.9 Type 2 diabetes mellitus without complications; K21.9 Gastro-esophageal reflux disease without esophagitis; Z79.899 Other long term (current) drug therapy; Z88.1 Allergy status to other antibiotic agents; Z88.8 Allergy status to other drugs, medicaments and biological substances; Z88.4 Allergy status to anesthetic agent
CPT/HCPCS: 99283; J7512

== ENCOUNTER 2020-05-28 15:58 | Emergency (ER) | payer MEDICAID ==
[~2020-05-28] VITALS: Ht 167.6 cm; Wt 46.3 kg
[2020-05-28] MEDS ORDERED: ALBUTEROL SULFATE 0.083% 2.5 MG/3 ML VIAL.NEB INH ONE (16:00)
[2020-05-28] MEDS ORDERED: PREDNISONE 20 MG TABLET PO ONE (16:00)
[2020-05-28] MEDS ORDERED: IPRATROPIUM BROM 0.5 MG/2.5 ML VIAL.NEB (ATROVENT) INH ONE (16:00)
--- NOTE | 2020-05-28 16:01 | NUR ---
Placed in room 06 . Placed on community health nurse supervisor, blood pressure machine and pulse oximeter. To gown for exam. Side rails up.
[2020-05-28 16:02] VITALS: BP_SYST 138
--- NOTE | 2020-05-28 16:04 | NUR ---
Pt bib EMS with c/o SOB. Reports history of asthma and stated she ran out of her inhaler. o2 sat 92% on RA. V/S stable, pt is afebrile. Currently resting in bed, will continue to monitor.
--- NOTE | 2020-05-28 16:05 | NUR ---
ER Dr. Avila at bedside examining patient.
--- NOTE | 2020-05-28 16:10 | NUR ---
Respiratory at bedside to administer breathing treatment.
[2020-05-28 16:11] VITALS: BP_SYST 138
--- NOTE | 2020-05-28 16:35 | NUR ---
Patient given written and verbal discharge instructions and verbalizes understanding. ER MD discussed with patient the results and treatment provided. Patient in stable condition. ID arm band removed. Rx of Albuterol and Prednisone given. Patient educated on pain management and to follow up with PMD. Pain Scale 0. Opportunity for questions provided and answered. Medication side effect fact sheet provided.
== END 2020-05-28 16:35 | disposition home or self-care (01) ==
LOC: SED 15:58
DX: J45.909 Unspecified asthma, uncomplicated (principal); K21.9 Gastro-esophageal reflux disease without esophagitis; E11.9 Type 2 diabetes mellitus without complications; Z79.899 Other long term (current) drug therapy; Z88.4 Allergy status to anesthetic agent; Z88.8 Allergy status to other drugs, medicaments and biological substances
CPT/HCPCS: 99283; J7512; J7613

== ENCOUNTER 2020-06-18 21:12 | Inpatient (IN) | payer MEDICAID, SELFPAY ==
[~2020-06-18] VITALS: Ht 167.6 cm; Wt 45.8 kg
[2020-06-18 21:12] VITALS: BP_SYST 124
[2020-06-18] MEDS ORDERED: NACL 0.9% 1,000 ML IV ONE (21:30)
[2020-06-18] MEDS ORDERED: IPRATROPIUM/ALBUTEROL SULFATE 3 ML AMPUL.NEB (DUONEB) INH ONE ×3 (21:30→23:15)
[2020-06-18] MEDS ORDERED: methylPREDNISolone SOD SUCC/PF 62.5 MG/ML VIAL IVP ONE (21:30)
[2020-06-18] MEDS ORDERED: MAGNESIUM SULFATE 50 ML IV ONE (21:30)
[2020-06-18 23:01] LABS: BASOPHILS # (AUTO) 0.1 K/uL (0.0-0.2); BASOPHILS % (AUTO) 0.9 % (0.0-2.0); EOSINOPHILS # (AUTO) 1.5 K/uL (0.0-0.4); EOSINOPHILS % (AUTO) 17.8 % (0.0-4.0); HEMATOCRIT 39.3 % (36-48); LYMPHOCYTES # (AUTO) 1.8 K/uL (1.0-5.5); LYMPHOCYTES % (AUTO) 21.9 % (20.5-51.5); MEAN CORPUSCULAR HEMOGLOBIN 30 pg (27-31); MEAN CORPUSCULAR HGB CONC 33 % (32-36); MEAN CORPUSCULAR VOLUME 92 fL (79.0-98.0); MONOCYTES # (AUTO) 0.6 K/uL (0.0-1.0); MONOCYTES % (AUTO) 7.4 % (1.7-9.3); NEUTROPHILS # (AUTO) 4.2 K/uL (1.8-7.7); PLATELET COUNT (AUTO) 319 K/uL (130-430); RED BLOOD CELL COUNT(AUTO) 4.29 MIL/uL (4.2-6.2); RED CELL DISTRIBUTION WIDTH 14.4 % (9.0-15.0); WHITE BLOOD COUNT (AUTO) 8.2 K/uL (4.8-10.8)
[2020-06-18 23:25] LABS: CALCIUM 8.5 mg/dL (8.4-11.0); CREATININE 0.88 mg/dL (0.55-1.30); POTASSIUM 3.3 mmol/L (3.5-5.1)
[2020-06-18 23:30] LABS: ALBUMIN 3.2 g/dL (3.4-4.8); TOTAL BILIRUBIN 0.2 mg/dL (0.0-1.0)
[2020-06-19] MEDS ORDERED: DEXAMETHASONE SOD PHOSPHATE 10 MG/ML VIAL IVP ONE (00:45)
[2020-06-19 00:51] LABS: BARBITURATE, URINE NEGATIVE (NEG <=200); BENZODIAZEPINE, URINE NEGATIVE (NEG <=150); CANNABINOID, URINE NEGATIVE (NEG <=50); COCAINE, URINE NEGATIVE (NEG <=150); METHAMPHETAMINES SCREEN,URINE NEGATIVE (NEG <=500); OPIATE, URINE NEGATIVE (NEG <=100); PHENCYCLIDINE SCREEN,URINE NEGATIVE (NEG <=25); UR TRICYCLIC ANTIDEPRESSANTS NEGATIVE (NEG <=300); URINE AMPHETAMINE NEGATIVE (NEG <=500); URINE METHADONE NEGATIVE (NEG <=200); URINE OXYCODONE SCREEN NEGATIVE (NEG <=100); URINE PROPOXYPHENE SCREEN NEGATIVE (NEG <=300)
[2020-06-19] MEDS ORDERED: DEXAMETHASONE SOD PHOSPHATE 10 MG/ML VIAL ONE (01:08)
[2020-06-19] MEDS ORDERED: POTASSIUM CHLORIDE 20 MEQ/PKT PACKET PO ONE (01:15)
[2020-06-19] MEDS: PIPERACILLIN/TAZO 3.375 GM in NS 50 ML IV SCH ×2 (01:18→05:47)
[2020-06-19] MEDS ORDERED: PIPERACILLIN/TAZOBACTAM 3.375 GM/VIAL (ZOSYN) IV ONE ×2 (01:33→02:18)
[2020-06-19 01:41] VITALS: BP_SYST 135
[2020-06-19 02:04] VITALS: BP_SYST 135
[2020-06-19] MEDS: IPRATROPIUM/ALBUTEROL SULFATE 3 ML AMPUL.NEB (DUONEB) INH SCH ×2 (03:47→07:08)
[2020-06-19 08:40] VITALS: BP_SYST 136
[2020-06-19] MEDS ORDERED: POTASSIUM CHLORIDE 20 MEQ TAB.PRT.SR PO ONE (09:45)
[2020-06-19] MEDS ORDERED: NALOXONE HCL 0.4 MG/ML AMP (NARCAN) IVP PRN ×2 (10:15)
[2020-06-19] MEDS ORDERED: predniSONE 20 MG TABLET PO ONE (10:15)
[2020-06-19] MEDS ORDERED: ONDANSETRON HCL 4 MG/2 ML VIAL IVP PRN (10:30)
[2020-06-19] MEDS: HYDROcodone/ACETAMIN 10-325 MG TAB PO PRN ×2 (10:45→18:46)
[2020-06-19] MEDS: AZITHROMYCIN 500 MG in NS 250 ML IV SCH (10:55)
[2020-06-19] MEDS: cefTRIAXone 1 GM in D5W 50 ML IV SCH (11:06)
[2020-06-19 12:10] VITALS: BP_SYST 145
[2020-06-19] MEDS: ALBUTEROL SULFATE 0.083% 2.5 MG/3 ML VIAL.NEB INH SCH ×2 (13:00→20:40)
[2020-06-19] MEDS ORDERED: DECADRON 4 MG TABLET PO SCH (15:00)
[2020-06-19 17:30] VITALS: BP_SYST 130
[2020-06-19 20:00] VITALS: BP_SYST 137
[2020-06-19] MEDS: traZODone HCL 50 MG TABLET (DESYREL) PO SCH (20:19)
[2020-06-19] MEDS: POTASSIUM CHLORIDE 20 MEQ TAB.PRT.SR PO SCH (20:19)
[2020-06-19] MEDS: BUDESONIDE 0.5 MG/2 ML AMPUL.NEB INH SCH (20:40)
[2020-06-20] VITALS: BP_SYST 125
[2020-06-20] MEDS: ALBUTEROL SULFATE 0.083% 2.5 MG/3 ML VIAL.NEB INH SCH ×4 (01:30→19:45)
[2020-06-20] MEDS: HYDROcodone/ACETAMIN 10-325 MG TAB PO PRN (05:33)
[2020-06-20 06:55] LABS: CALCIUM 8.5 mg/dL (8.4-11.0); CREATININE 0.61 mg/dL (0.55-1.30); POTASSIUM 4.7 mmol/L (3.5-5.1)
[2020-06-20] MEDS: BUDESONIDE 0.5 MG/2 ML AMPUL.NEB INH SCH ×2 (07:13→19:45)
[2020-06-20 08:15] VITALS: BP_SYST 128
[2020-06-20] MEDS: POTASSIUM CHLORIDE 20 MEQ TAB.PRT.SR PO SCH (09:06)
[2020-06-20] MEDS: predniSONE 20 MG TABLET PO SCH (09:06)
[2020-06-20] MEDS: cefTRIAXone 1 GM in D5W 50 ML IV SCH (11:44)
[2020-06-20] MEDS: AZITHROMYCIN 500 MG in NS 250 ML IV SCH (11:45)
[2020-06-20] MEDS: LORazepam 1 MG TABLET PO PRN ×2 (11:53→20:04)
[2020-06-20 12:41] VITALS: BP_SYST 132
[2020-06-20 16:00] VITALS: BP_SYST 124
[2020-06-20 20:00] VITALS: BP_SYST 133
[2020-06-20] MEDS: traZODone HCL 50 MG TABLET (DESYREL) PO SCH (20:04)
[2020-06-21 00:34] VITALS: BP_SYST 109
[2020-06-21] MEDS: ALBUTEROL SULFATE 0.083% 2.5 MG/3 ML VIAL.NEB INH SCH ×3 (01:00→19:30)
[2020-06-21] MEDS: LORazepam 1 MG TABLET PO PRN (06:16)
[2020-06-21] MEDS: BUDESONIDE 0.5 MG/2 ML AMPUL.NEB INH SCH ×2 (07:45→19:30)
[2020-06-21 08:00] VITALS: BP_SYST 122
[2020-06-21] MEDS: POTASSIUM CHLORIDE 20 MEQ TAB.PRT.SR PO SCH (08:54)
[2020-06-21] MEDS: predniSONE 20 MG TABLET PO SCH (08:54)
[2020-06-21] MEDS: DULoxetine HCL 30 MG CAPSULE.DR (CYMBALTA) PO SCH (08:55)
[2020-06-21] MEDS: AZITHROMYCIN 500 MG in NS 250 ML IV SCH (11:22)
[2020-06-21] MEDS: cefTRIAXone 1 GM in D5W 50 ML IV SCH (11:24)
[2020-06-21 12:45] VITALS: BP_SYST 147
[2020-06-21 16:29] VITALS: BP_SYST 145
[2020-06-21 19:00] VITALS: BP_SYST 150
[2020-06-21 20:00] VITALS: BP_SYST 150
[2020-06-21] MEDS: traZODone HCL 50 MG TABLET (DESYREL) PO SCH (21:40)
[2020-06-22 00:12] VITALS: BP_SYST 147
[2020-06-22] MEDS: ALBUTEROL SULFATE 0.083% 2.5 MG/3 ML VIAL.NEB INH SCH ×4 (01:00→20:00)
[2020-06-22] MEDS: BUDESONIDE 0.5 MG/2 ML AMPUL.NEB INH SCH ×2 (07:01→20:00)
[2020-06-22 08:00] VITALS: BP_SYST 148
[2020-06-22 08:16] VITALS: BP_SYST 147
[2020-06-22] MEDS: POTASSIUM CHLORIDE 20 MEQ TAB.PRT.SR PO SCH (08:21)
[2020-06-22] MEDS: predniSONE 20 MG TABLET PO SCH (08:21)
[2020-06-22] MEDS: DULoxetine HCL 30 MG CAPSULE.DR (CYMBALTA) PO SCH (08:21)
[2020-06-22] MEDS: HYDROcodone/ACETAMIN 5-325 MG TAB (NORCO/ VICODIN) PO PRN (08:30)
[2020-06-22] MEDS: cefTRIAXone 1 GM in D5W 50 ML IV SCH (11:18)
[2020-06-22] MEDS: AZITHROMYCIN 500 MG in NS 250 ML IV SCH (11:18)
[2020-06-22] MEDS ORDERED: DOXY-244 PO (12:26)
[2020-06-22 12:51] VITALS: BP_SYST 120
[2020-06-22 16:04] VITALS: BP_SYST 141
[2020-06-22 20:00] VITALS: BP_SYST 132
[2020-06-22] MEDS: traZODone HCL 50 MG TABLET (DESYREL) PO SCH (21:06)
[2020-06-23 00:49] VITALS: BP_SYST 138
[2020-06-23] MEDS: ALBUTEROL SULFATE 0.083% 2.5 MG/3 ML VIAL.NEB INH SCH ×4 (01:00→20:02)
[2020-06-23] MEDS: HYDROcodone/ACETAMIN 5-325 MG TAB (NORCO/ VICODIN) PO PRN (05:03)
[2020-06-23] MEDS: BUDESONIDE 0.5 MG/2 ML AMPUL.NEB INH SCH ×2 (07:11→20:03)
[2020-06-23 08:00] VITALS: BP_SYST 136
[2020-06-23] MEDS: DULoxetine HCL 30 MG CAPSULE.DR (CYMBALTA) PO SCH (08:52)
[2020-06-23] MEDS: predniSONE 20 MG TABLET PO SCH (08:52)
[2020-06-23] MEDS: POTASSIUM CHLORIDE 20 MEQ TAB.PRT.SR PO SCH (08:52)
[2020-06-23] MEDS: AZITHROMYCIN 500 MG in NS 250 ML IV SCH (12:06)
[2020-06-23 12:35] VITALS: BP_SYST 133
[2020-06-23] MEDS: LORazepam 1 MG TABLET PO PRN (13:11)
[2020-06-23] MEDS: cefTRIAXone 1 GM in D5W 50 ML IV SCH (13:12)
[2020-06-23 16:10] VITALS: BP_SYST 122
[2020-06-23 20:00] VITALS: BP_SYST 127
[2020-06-23 20:22] VITALS: BP_SYST 127
[2020-06-23] MEDS: traZODone HCL 50 MG TABLET (DESYREL) PO SCH (21:04)
== END 2020-06-23 21:12 | disposition home health service (06) | DRG 140 ==
LOC: SED 21:12 → STU 06-19 00:35 → SMU 06-20 17:16
PROVIDERS: ADMIT Internal Medicine; ATTEND Internal Medicine
DX: J44.0 Chronic obstructive pulmonary disease with (acute) lower respiratory infection (principal); J44.1 Chronic obstructive pulmonary disease with (acute) exacerbation; J96.01 Acute respiratory failure with hypoxia; R65.11 Systemic inflammatory response syndrome (SIRS) of non-infectious origin with acute organ dysfunction; E44.1 Mild protein-calorie malnutrition; M24.412 Recurrent dislocation, left shoulder; F32.9 Major depressive disorder, single episode, unspecified; F41.1 Generalized anxiety disorder; Z20.828 Contact with and (suspected) exposure to other viral communicable diseases; F15.129 Other stimulant abuse with intoxication, unspecified; J20.9 Acute bronchitis, unspecified; E87.6 Hypokalemia; K21.9 Gastro-esophageal reflux disease without esophagitis; G89.4 Chronic pain syndrome; J45.901 Unspecified asthma with (acute) exacerbation; Z88.8 Allergy status to other drugs, medicaments and biological substances; Z88.1 Allergy status to other antibiotic agents; Z91.041 Radiographic dye allergy status; Z79.899 Other long term (current) drug therapy; Z68.1 Body mass index [BMI] 19.9 or less, adult; Z56.0 Unemployment, unspecified
CPT/HCPCS: 36415; 71045; 80048; 80053; 80307; 84703; 85025; 87040-TC; 94640; 94760; 96365; 96375; 99285; G0378; J0456; J0696; J1100; J2543; J2930; J3475; J7050; J7060; J7512; J7613; J7626

== ENCOUNTER 2020-07-10 12:24 | Emergency (ER) | payer MEDICAID, SELFPAY ==
[~2020-07-10] VITALS: Ht 162.6 cm; Wt 45.4 kg
[~2020-07-10 12:24] MED LIST changes: +DOXY-244 PO
[2020-07-10 12:33] VITALS: BP_SYST 121
[2020-07-10] MEDS ORDERED: ALBUTEROL SULFATE 0.083% 2.5 MG/3 ML VIAL.NEB INH ONE ×2 (12:45→13:01)
[2020-07-10] MEDS ORDERED: predniSONE 20 MG TABLET PO ONE (12:45)
[2020-07-10] MEDS ORDERED: IPRATROPIUM BROM 0.5 MG/2.5 ML VIAL.NEB (ATROVENT) INH ONE ×2 (12:45→13:01)
[2020-07-10 15:48] VITALS: BP_SYST 121
== END 2020-07-10 15:48 | disposition home or self-care (01) ==
LOC: SED 12:24
DX: J44.1 Chronic obstructive pulmonary disease with (acute) exacerbation (principal); E11.9 Type 2 diabetes mellitus without complications; K21.9 Gastro-esophageal reflux disease without esophagitis; Z79.899 Other long term (current) drug therapy; Z88.1 Allergy status to other antibiotic agents; Z88.4 Allergy status to anesthetic agent; Z20.828 Contact with and (suspected) exposure to other viral communicable diseases
CPT/HCPCS: 36415; 71045; 87426; 94640; 99284; J7512; J7613

== ENCOUNTER 2020-07-21 11:46 | Inpatient (IN) | payer MEDICAID, SELFPAY ==
[~2020-07-21] VITALS: Ht 167.6 cm; Wt 44.9 kg
[2020-07-21 11:55] VITALS: BP_SYST 146
--- NOTE | 2020-07-21 11:55 | NUR ---
ER at bedside examining patient.
[2020-07-21] MEDS ORDERED: methylPREDNISolone SOD SUCC/PF 62.5 MG/ML VIAL IVP ONE ×2 (12:00→15:45)
[2020-07-21] MEDS ORDERED: IPRATROPIUM/ALBUTEROL SULFATE 3 ML AMPUL.NEB (DUONEB) INH ONE (12:00)
[2020-07-21] MEDS ORDERED: NACL 0.9% 1,000 ML IV ONE (12:00)
--- NOTE | 2020-07-21 12:00 | NUR ---
ER at bedside examining patient.
--- NOTE | 2020-07-21 12:00 | NUR ---
Pt came to ER for respiratory distress, hx asthma presents with tachypnea wheezing and tripodding. Pt O2 WNL, VSS, in [facility] at this time, MD fide fishman.
[2020-07-21] MEDS ORDERED: ALBUTEROL SULFATE 0.083% 2.5 MG/3 ML VIAL.NEB INH ONE ×2 (13:15→15:00)
--- NOTE | 2020-07-21 13:30 | NUR ---
Pt resting in rney, O2 desaturates on RA, nasal cannula 4L needed to maintain normal limits
--- NOTE | 2020-07-21 15:00 | NUR ---
Pt receiving breathing treatments which are effective in assisting pt feel better momentarily
--- NOTE | 2020-07-21 15:12 | NUR ---
Medication reconciliation completed with information provided by patient. Any prior medication reconciliation on file was reviewed and corrected.
--- NOTE | 2020-07-21 15:13 | NUR ---
Pt on 4L Nasal Cannula to maintain O2 WNL
--- NOTE | 2020-07-21 15:17 | NUR ---
[facility] [employer], reequested fax of pt facesheet and clinicals regarding pt admission. fax: [phone]
[2020-07-21 15:18] LABS: BASOPHILS % (AUTO) 0.4 % (0.0-2.0); EOSINOPHILS # (AUTO) 0.4 K/uL (0.0-0.4); EOSINOPHILS % (AUTO) 5.8 % (0.0-4.0); HEMATOCRIT 42.6 % (36-48); LYMPHOCYTES # (AUTO) 0.5 K/uL (1.0-5.5); LYMPHOCYTES % (AUTO) 6.4 % (20.5-51.5); MEAN CORPUSCULAR HEMOGLOBIN 30 pg (27-31); MEAN CORPUSCULAR HGB CONC 33 % (32-36); MEAN CORPUSCULAR VOLUME 91 fL (79.0-98.0); MONOCYTES # (AUTO) 0.1 K/uL (0.0-1.0); MONOCYTES % (AUTO) 1.6 % (1.7-9.3); NEUTROPHILS # (AUTO) 6.6 K/uL (1.8-7.7); NEUTROPHILS % (AUTO) 85.8 % (40.0-70.0); PLATELET COUNT (AUTO) 288 K/uL (130-430); RED BLOOD CELL COUNT(AUTO) 4.69 MIL/uL (4.2-6.2); WHITE BLOOD COUNT (AUTO) 7.7 K/uL (4.8-10.8)
[2020-07-21 15:45] LABS: ANION GAP 5 (5-15); CALCIUM 8.8 mg/dL (8.4-11.0); CHLORIDE 103 mmol/L (98-107); CREATININE 0.65 mg/dL (0.55-1.30); GLUCOSE 152 mg/dL (70-99); POTASSIUM 3.8 mmol/L (3.5-5.1); SODIUM SERUM 139 mmol/L (136-145); UREA NITROGEN, BLOOD 10 mg/dL (8-21)
[2020-07-21 15:57] LABS: ALANINE AMINOTRANSFERASE 34 U/L (12-78); ALBUMIN 3.4 g/dL (3.4-4.8); ASPARTATE AMINOTRANSFERASE 33 U/L (10-37); TOTAL BILIRUBIN 0.3 mg/dL (0.0-1.0)
[2020-07-21 16:06] LABS: GFR AFRICAN AMERICAN 124 mL/min (>90)
--- NOTE | 2020-07-21 16:40 | NUR ---
Patient will be admitted to care of DR. LIVINGSTON. Admitted to MED SURG unit. Will go to room 108C. Belongings list completed. Complete and up to date summary report printed. SBAR report to be given at bedside with opportunity for questions.
--- NOTE | 2020-07-21 17:00 | NUR ---
ADMISSION NOTE Received patient from ER via gurney. Patient admitted with diagnosis of COPD. Patient is awake, alert, oriented X 4. Patient oriented to hospital room, call light, toileting, pain management and safety-teach back done. Patient informed that Khloe will be her nurse and that their room number is 101a. Personal belongings checked and Belongings List documented. Call light within reach.
--- NOTE | 2020-07-21 17:10 | NUR ---
INITIAL NOTE: RECEIVED REPORT FROM ER NURSE ASHA. PATIENT IS AWAKE AND ALERT x4. PATIENT WALKED TO THE BED FROM THE [facility]. PATIENT IS TOLERATING OXYGEN ON ROOM AIR WITH NO SIGNS OF DISTRESS OR SHORTNESS OF BREATH NOTED. PATIENT IS CURRENTLY EATING [place] CRACKERS AND DRINKING JUICE. NASAL CANNULA ON 2 L OXYGEN AT BEDSIDE FOR PATIENT IF SHE STARTS TO FEEL SHORT OF BREATH. IV SITE IS PATENT WITH NO SIGNS OF INFILTRATION NOTED. PATIENT IN STABLE CONDITION. SAFETY, FALL AND ASPIRATION PRECAUTIONS ARE IN PLACE. BED LOCKED IN LOWEST POSITION WITH CALL LIGHT IN REACH. WILL CONTINUE TO MONITOR PATIENT FOR ANY CHANGES.
[2020-07-21 17:19] VITALS: BP_SYST 130
--- NOTE | 2020-07-21 18:41 | NUR ---
CLOSING NOTES: PATIENT IS AWAKE AND ALERT x4 LAYING DOWN IN BED WATCHING TELEVISION. PATIENT IS TOLERATING OXYGEN ON ROOM AIR WITH NO SIGNS OF DISTRESS OR SHORTNESS OF BREATH NOTED. PATIENT IS EATING DINNER IN BED. PATIENT DENIES ANY PAIN AT THE MOMENT. IV SITE IS PATENT WITH NO SIGNS OF INFILTRATION NOTED AND SALINE LOCKED. PATIENT IN STABLE CONDITION. SAFETY, FALL AND ASPIRATION PRECAUTIONS REMAINED IN PLACE THROUGHOUT THE SHIFT. BED LOCKED IN LOWEST POSITION WITH CALL LIGHT IN REACH. WILL ENDORSE PATIENT CARE TO ONCOMING CHIEF RESERVOIR ENGINEERING NURSE.
[2020-07-21] MEDS ORDERED: LEVALBUTEROL Tartrate 15 GM HFA. 45 mCg/Actuation INH SCH (19:00)
--- NOTE | 2020-07-21 19:35 | NUR ---
ROUNDS PATIENT IN BED, WATCHING TV, VITALS STABLE. DENIES ANY PAIN AT THIS TIME. ASSESSMENT DONE AND DOCUMENTED. SEE FLOWSHEET. NEEDS ATTENDED TO. SAFETY MEASURES IN PLACED. BED IN LOW AND LOCKED POSITION. CALL LIGHT PLACED WITHIN REACH.
[2020-07-21 20:00] VITALS: BP_SYST 142
--- NOTE | 2020-07-21 21:15 | NUR ---
DR. LIVINGSTON PATIENT SEEN BY DR. LIVINGSTON WITH NEW ORDERS, WILL CONTINUE TO MONITOR.
[2020-07-22] VITALS: BP_SYST 138
--- NOTE | 2020-07-22 00:13 | NUR ---
PATIENT RESTING: Patient resting quietly. No acute distress noted. Vital signs within normal range.
[2020-07-22] MEDS: methylPREDNISolone SOD SUCC/PF 62.5 MG/ML VIAL IVP SCH ×3 (00:19→11:55)
[2020-07-22] MEDS: IBUPROFEN 800 MG TABLET PO PRN ×2 (00:24→18:04)
--- NOTE | 2020-07-22 02:17 | NUR ---
ROUNDS PATIENT ASLEEP, RESPIRATIONS EVEN AND UNLABORED. WILL CONTINUE TO MONITOR.
--- NOTE | 2020-07-22 04:13 | NUR ---
PATIENT RESTING: Patient resting quietly. No acute distress noted. Vital signs within normal range.
--- NOTE | 2020-07-22 06:50 | NUR ---
closing notes patient awake, no complaints at this time, all needs attended to. safety measures maintained. call light placed within reach.
--- NOTE | 2020-07-22 07:30 | NUR ---
AM rounds: Awake, ambulatory with steady gait. No shortness of breath noted. Asking for crackers and juice.
[2020-07-22 10:20] VITALS: BP_SYST 149
--- NOTE | 2020-07-22 10:30 | NUR ---
Rounds: Patient in bed. No complaints of shortness of breath.
[2020-07-22 12:00] VITALS: BP_SYST 144
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
--- NOTE | 2020-07-22 13:55 | NUR ---
ASSUME CARE: RECEIVED REPORT AND ASSUMED CARE FROM JENNY. SLEEPING DURING ROUNDS. NO DISTRESS.
--- NOTE | 2020-07-22 16:28 | NUR ---
RN ROUNDS: RESTING. NO NEEDS THIS TIME. STABLE.
[2020-07-22 16:54] VITALS: BP_SYST 149
--- NOTE | 2020-07-22 18:05 | NUR ---
Motrin : Due po pain meds for headache given per request,with no problem.
--- NOTE | 2020-07-22 18:31 | NUR ---
END OF SHIFT: PATIENT CALM AND RELAX THIS TIME. CALLED DR LIVINGSTON,NO RESPONSE YET FOR BREATHING ORDER. CALL LIGHT WITH IN REACH. BED LOCKED AT LOWEST POSITION. CONDITION GUARDED.
--- NOTE | 2020-07-22 19:30 | NUR ---
ROUNDS PATIENT RESTING COMFORTABLY IN BED, NOT IN DISTRESS, VITALS STABLE. DENIES ANY PAIN AT THIS TIME. ASSESSMENT DONE AND DOCUMENTED. SEE FLOWSHEET. NEEDS ATTENDED TO. SAFETY AND FALL MEASURES IN PLACED. CALL LIGHT PLACED WITHIN REACH.
[2020-07-22 20:00] VITALS: BP_SYST 145
[2020-07-22] MEDS ORDERED: ENOXAPARIN SODIUM 40 MG/0.4 ML SYRINGE SUBCUT SCH (21:00)
[2020-07-22] MEDS ORDERED: TEMAZEPAM 7.5 MG CAPSULE PO SCH (21:00)
--- NOTE | 2020-07-22 21:14 | NUR ---
MEDICATION DUE MEDICATIONS GIVEN ORDERED, TOLERATED WELL. WILL CONTINUE TO MONITOR.
[2020-07-22] MEDS: methylPREDNISolone SOD SUCC 40 MG/ML VIAL IVP SCH (21:29)
--- NOTE | 2020-07-23 00:14 | NUR ---
ROUNDS PATIENT SLEEPING, RESPIRATIONS EVEN AND UNLABORED, NO SOB NOTED. WILL CONTINUE TO MONITOR.
[2020-07-23 00:15] VITALS: BP_SYST 143
--- NOTE | 2020-07-23 02:16 | NUR ---
ROUNDS PATIENT ASLEEP, RESPIRATIONS EVEN AND UNLABORED, NO SOB NOTED. WILL CONTINUE TO MONITOR.
--- NOTE | 2020-07-23 04:13 | NUR ---
PATIENT RESTING: Patient resting quietly. No acute distress noted. Vital signs within normal range.
--- NOTE | 2020-07-23 06:24 | NUR ---
CLOSING NOTES PATIENT AWAKE, NO COMPLAINTS AT THIS TIME, ALL NEEDS ATTENDED TO. SAFETY MEASURES MAINTAINED. CALL LIGHT PLACED WITHIN REACH.
[2020-07-23 08:00] VITALS: BP_SYST 140
--- NOTE | 2020-07-23 08:10 | NUR ---
Opening Notes Patient is awake, alert and oriented x4. No resp distress noted. Breathing is even and unlabored. Pt remains on RA, saturating at 97%. Patient has NC by bedside. Pt is c/o 7/10 gen body pain, requesting pain meds. IV site on right FA, 22 gauge intact, flushing well, saline lock. Patient is c/o of episodes of diarrhea, loose stool. All needs met. Safety and fall precautions in place. Bed in lowest position, alarm on, locked. Will continue to monitor.
[2020-07-23] MEDS: methylPREDNISolone SOD SUCC 40 MG/ML VIAL IVP SCH (08:13)
[2020-07-23] MEDS: IBUPROFEN 800 MG TABLET PO PRN (08:20)
--- NOTE | 2020-07-23 08:20 | NUR ---
Motrin 800 mg Patient is c/o 04/09 gen body pain, requesting pain meds. Administered Motrin 800 mg, tolerated well. Will continue to monitor.
--- NOTE | 2020-07-23 10:20 | NUR ---
Notes/Shower/Breathing Tx/Refused Immodium Pt us requesting to take a shower, nurse assisted pt to shower. Given new linens and gown. Pt refused Immodium dose for diarrhea. Pt also received a breathing tx, toelrated well. No resp distress at this time. Pt denies any pain. Will continue to monitor.
--- NOTE | 2020-07-23 10:56 | NUR ---
Dietitian Recommendations * Recommend regular diet w/ Ensure Enlive BID (ONS provides 700 kcal/day, 40 gm protein/day) KELLY HANSON Please refer to Nutrition Assessment for details. Addendum: 07/23/20 at [address] Amended: Links added.
[2020-07-23 11:22] VITALS: BP_SYST 135
[2020-07-23] MEDS ORDERED: LOPERAMIDE HCL 2 MG CAPSULE PO PRN (11:30)
[2020-07-23] MEDS ORDERED: IPRATROPIUM/ALBUTEROL SULFATE 3 ML AMPUL.NEB (DUONEB) INH PRN (11:30)
[2020-07-23 11:36] VITALS: BP_SYST 135
[2020-07-23] MEDS ORDERED: IPRATROPIUM/ALBUTEROL SULFATE 3 ML AMPUL.NEB (DUONEB) ONE (11:40)
--- NOTE | 2020-07-23 12:37 | NUR ---
Notes Patient is sleeping in bed, resting at this time. No resp distress noted. Breathing is even and unlabored. Pt denies any pain. Will continue to monitor.
--- NOTE | 2020-07-23 14:25 | NUR ---
Notes Pt is laying in bed, resting. No resp distress. Denies any pain. Per patient, "Just leave me alone. Im leaving today." Will continue to monitor.
[2020-07-23 15:31] VITALS: BP_SYST 140
--- NOTE | 2020-07-23 15:59 | NUR ---
AMA: Patient does not wish to proceed with medical care recommended by . Patient given information related to possible complications, up to and including , which could occur as a result of leaving hospital at this time. Patient verbalizes understanding of risks involved leaving against medical advice. Patient has signed AMA form.
--- NOTE | 2020-07-23 16:10 | NUR ---
Notified Dr. Dixon of patient leaving AMA. No new orders at this time
== END 2020-07-23 15:50 | disposition left against medical advice (07) | DRG 140 ==
LOC: SED 11:46 → SMU 15:43
PROVIDERS: ADMIT Family Medicine; ATTEND Family Medicine
DX: J44.1 Chronic obstructive pulmonary disease with (acute) exacerbation (principal); F17.200 Nicotine dependence, unspecified, uncomplicated; J45.901 Unspecified asthma with (acute) exacerbation; R09.02 Hypoxemia; Z53.29 Procedure and treatment not carried out because of patient's decision for other reasons; Z91.030 Bee allergy status; Z88.8 Allergy status to other drugs, medicaments and biological substances; Z88.1 Allergy status to other antibiotic agents; Z79.899 Other long term (current) drug therapy
CPT/HCPCS: 36415; 36600; 71045; 80053; 82803-TC; 84484; 85025; 87081; 93005; 94640; 96374; 99285; J1030; J1650; J2930; J7613

== ENCOUNTER 2020-10-16 13:22 | Inpatient (IN) | payer MEDICAID, SELFPAY ==
[~2020-10-16] VITALS: Ht 168.9 cm; Wt 43.1 kg
[~2020-10-16 13:22] MED LIST changes: -DOXY-244 PO; -IBUP-1970 PO; -MOME13HF2 INH; -TRAZ-250 PO
[2020-10-16 14:10] VITALS: BP_SYST 166
[2020-10-16 14:53] LABS: BASOPHILS % (AUTO) 0.6 % (0.0-2.0); EOSINOPHILS # (AUTO) 1.2 K/uL (0.0-0.4); EOSINOPHILS % (AUTO) 14.6 % (0.0-4.0); HEMATOCRIT 38.5 % (36-48); HEMOGLOBIN 12.8 g/dL (12.0-16.0); LYMPHOCYTES # (AUTO) 1.4 K/uL (1.0-5.5); LYMPHOCYTES % (AUTO) 17.3 % (20.5-51.5); MEAN CORPUSCULAR HEMOGLOBIN 30 pg (27-31); MEAN CORPUSCULAR HGB CONC 33 % (32-36); MEAN CORPUSCULAR VOLUME 89 fL (79.0-98.0); MONOCYTES # (AUTO) 0.7 K/uL (0.0-1.0); MONOCYTES % (AUTO) 8.5 % (1.7-9.3); NEUTROPHILS # (AUTO) 4.8 K/uL (1.8-7.7); PLATELET COUNT (AUTO) 314 K/uL (130-430); RED BLOOD CELL COUNT(AUTO) 4.33 MIL/uL (4.2-6.2); RED CELL DISTRIBUTION WIDTH 14.6 % (9.0-15.0); WHITE BLOOD COUNT (AUTO) 8.2 K/uL (4.8-10.8)
[2020-10-16 15:08] LABS: CALCIUM 8.6 mg/dL (8.4-11.0); CREATININE 0.6 mg/dL (0.55-1.30); POTASSIUM 3.9 mmol/L (3.5-5.1)
[2020-10-16 15:12] LABS: INR 0.9 (0.8-1.2); PROTHROMBIN TIME 9.4 SECS (9.5-12.5)
[2020-10-16 15:15] LABS: ALBUMIN 3.4 g/dL (3.4-4.8); TOTAL BILIRUBIN 0.2 mg/dL (0.0-1.0)
[2020-10-16] MEDS ORDERED: VANCOMYCIN HCL 1,000 MG in NS 250 ML IV ONE (15:15)
[2020-10-16] MEDS ORDERED: PIPERACILLIN/TAZO 3.375 GM in NS 50 ML IV ONE (15:15)
[2020-10-16] MEDS ORDERED: VANCOMYCIN HCL 1000 MG/VIAL IV ONE (15:44)
[2020-10-16] MEDS ORDERED: PIPERACILLIN/TAZOBACTAM 3.375 GM/VIAL (ZOSYN) IV ONE (15:44)
[2020-10-16] MEDS: D5NS 1,000 ML IV SCH ×2 (16:29→16:45)
[2020-10-16] MEDS ORDERED: ZOLPIDEM TARTRATE 5 MG TABLET PO PRN (16:45)
[2020-10-16] MEDS ORDERED: ACETAMINOPHEN 500 MG TABLET PO PRN (16:45)
[2020-10-16] MEDS ORDERED: DOCUSATE SODIUM 100 MG/10 ML UDC PO PRN (16:45)
[2020-10-16] MEDS ORDERED: ONDANSETRON HCL 4 MG/2 ML VIAL IVP PRN (16:45)
[2020-10-16 17:29] VITALS: BP_SYST 126
[2020-10-16 18:32] LABS: FREE T4 (FREE THYROXINE) 1.1 ng/dl (0.8-1.5); PHOSPHORUS 3.9 mg/dL (2.7-4.5); THYROID STIMULATING HORMONE 0.71 uIu/mL (0.36-3.74)
[2020-10-16] MEDS: HYDROcodone/ACETAMIN 7.5-325 MG TAB PO PRN (18:40)
[2020-10-16] MEDS ORDERED: TETANUS IMMUNE GLOBULIN/PF 250 UNITS/SYR (HYPERTET) I.M. ONE (18:45)
[2020-10-16] MEDS ORDERED: ALBUTEROL MDI INHALATION 8 GM INH INH PRN (18:45)
[2020-10-16 20:43] VITALS: BP_SYST 119
[2020-10-16] MEDS: PIPERACILLIN/TAZO 3.375/DEX-IS 50 ML IV SCH (23:10)
[2020-10-17] VITALS: BP_SYST 101
[2020-10-17] MEDS: D5NS 1,000 ML IV SCH ×2 (04:12→09:25)
[2020-10-17] MEDS: PIPERACILLIN/TAZO 3.375/DEX-IS 50 ML IV SCH ×3 (05:27→11:57)
[2020-10-17] MEDS: predniSONE 5 MG TABLET PO SCH (09:00)
[2020-10-17] MEDS ORDERED: POTASSIUM CHLORIDE 20 MEQ TAB.PRT.SR PO PRN (09:00)
[2020-10-17] MEDS: PANTOPRAZOLE SODIUM 40 MG TAB PO SCH (09:00)
[2020-10-17 10:22] LABS: BASOPHILS % (AUTO) 0.6 % (0.0-2.0); EOSINOPHILS # (AUTO) 1.8 K/uL (0.0-0.4); EOSINOPHILS % (AUTO) 30.2 % (0.0-4.0); HEMATOCRIT 38.6 % (36-48); HEMOGLOBIN 12.5 g/dL (12.0-16.0); LYMPHOCYTES # (AUTO) 1.2 K/uL (1.0-5.5); LYMPHOCYTES % (AUTO) 19.1 % (20.5-51.5); MEAN CORPUSCULAR HEMOGLOBIN 29 pg (27-31); MEAN CORPUSCULAR HGB CONC 33 % (32-36); MEAN CORPUSCULAR VOLUME 90 fL (79.0-98.0); MONOCYTES # (AUTO) 0.5 K/uL (0.0-1.0); MONOCYTES % (AUTO) 8.3 % (1.7-9.3); NEUTROPHILS # (AUTO) 2.5 K/uL (1.8-7.7); PLATELET COUNT (AUTO) 289 K/uL (130-430); RED CELL DISTRIBUTION WIDTH 14.6 % (9.0-15.0)
[2020-10-17 10:51] LABS: CALCIUM 8.5 mg/dL (8.4-11.0); CREATININE 0.57 mg/dL (0.55-1.30); POTASSIUM 4.9 mmol/L (3.5-5.1)
[2020-10-17 12:18] VITALS: BP_SYST 112
[2020-10-17 12:36] LABS: NEUTROPHILS % (AUTO) 41.8 % (40.0-70.0)
[2020-10-17] MEDS ORDERED: DIPH-TET Vacc 0.5 ML VIAL I.M. ONE (15:00)
[2020-10-17 16:00] VITALS: BP_SYST 115
[2020-10-17 20:00] VITALS: BP_SYST 118
[2020-10-18] VITALS: BP_SYST 114
[2020-10-18] MEDS: PIPERACILLIN/TAZO 3.375/DEX-IS 50 ML IV SCH ×3 (00:31→11:40)
[2020-10-18] MEDS: D5NS 1,000 ML IV SCH (00:31)
[2020-10-18] MEDS: HYDROcodone/ACETAMIN 7.5-325 MG TAB PO PRN ×2 (04:21→10:24)
[2020-10-18 08:09] VITALS: BP_SYST 124
[2020-10-18] MEDS: PANTOPRAZOLE SODIUM 40 MG TAB PO SCH (08:09)
[2020-10-18] MEDS: predniSONE 5 MG TABLET PO SCH (08:09)
[2020-10-18] MEDS ORDERED: SULF1TAB48 PO (08:10)
[2020-10-18 09:39] LABS: CALCIUM 8.7 mg/dL (8.4-11.0); CREATININE 0.65 mg/dL (0.55-1.30); POTASSIUM 3.9 mmol/L (3.5-5.1)
[2020-10-18 09:46] LABS: BASOPHILS % (AUTO) 0.6 % (0.0-2.0); EOSINOPHILS # (AUTO) 1.5 K/uL (0.0-0.4); EOSINOPHILS % (AUTO) 23.3 % (0.0-4.0); HEMATOCRIT 39.4 % (36-48); HEMOGLOBIN 12.6 g/dL (12.0-16.0); LYMPHOCYTES # (AUTO) 1.3 K/uL (1.0-5.5); LYMPHOCYTES % (AUTO) 21.4 % (20.5-51.5); MEAN CORPUSCULAR HEMOGLOBIN 29 pg (27-31); MEAN CORPUSCULAR HGB CONC 32 % (32-36); MEAN CORPUSCULAR VOLUME 90 fL (79.0-98.0); MONOCYTES # (AUTO) 0.6 K/uL (0.0-1.0); MONOCYTES % (AUTO) 9.1 % (1.7-9.3); NEUTROPHILS # (AUTO) 2.9 K/uL (1.8-7.7); NEUTROPHILS % (AUTO) 45.6 % (40.0-70.0); PLATELET COUNT (AUTO) 316 K/uL (130-430); RED BLOOD CELL COUNT(AUTO) 4.37 MIL/uL (4.2-6.2); RED CELL DISTRIBUTION WIDTH 14.1 % (9.0-15.0); WHITE BLOOD COUNT (AUTO) 6.3 K/uL (4.8-10.8)
[2020-10-18] MEDS ORDERED: ALBUTEROL SULFATE 0.083% 2.5 MG/3 ML VIAL.NEB INH PRN (11:30)
[2020-10-18 12:01] VITALS: BP_SYST 124
[2020-10-18 12:16] VITALS: BP_SYST 131
[2020-10-18 14:01] VITALS: BP_SYST 112
[2020-10-18] MEDS ORDERED: IPRATROPIUM/ALBUTEROL SULFATE 3 ML AMPUL.NEB (DUONEB) INH SCH (15:00)
== END 2020-10-18 16:00 | disposition home or self-care (01) | DRG 383 ==
LOC: SED 13:22 → SMU 15:12
PROVIDERS: ADMIT Family Medicine; ATTEND Family Medicine
DX: L03.116 Cellulitis of left lower limb (principal); J44.9 Chronic obstructive pulmonary disease, unspecified; F41.9 Anxiety disorder, unspecified; F39 Unspecified mood [affective] disorder; Z20.822 Contact with and (suspected) exposure to COVID-19; F19.10 Other psychoactive substance abuse, uncomplicated; E11.9 Type 2 diabetes mellitus without complications; K21.9 Gastro-esophageal reflux disease without esophagitis; R64 Cachexia; F17.210 Nicotine dependence, cigarettes, uncomplicated; Z98.891 History of uterine scar from previous surgery; Z88.4 Allergy status to anesthetic agent; Z88.1 Allergy status to other antibiotic agents; Z91.048 Other nonmedicinal substance allergy status; Z79.52 Long term (current) use of systemic steroids; Z68.1 Body mass index [BMI] 19.9 or less, adult; R63.6 Underweight
CPT/HCPCS: 36415; 71045; 80048; 80053; 80061; 82150-TC; 83036; 83605; 83690-TC; 83735-TC; 83880; 84100-TC; 84439; 84443-TC; 84484; 85025; 85610-TC; 85730-TC; 87040-TC; 90714; 93005; 96365; 96366; 96367; 99285; J1670; J2543; J3370; J7042; J7512

== ENCOUNTER 2020-10-27 06:58 | Emergency (ER) | payer MEDICAID, SELFPAY ==
[~2020-10-27] VITALS: Ht 165.1 cm; Wt 54.4 kg
[2020-10-27 06:58] VITALS: BP_SYST 142
[~2020-10-27 06:58] MED LIST changes: +SULF1TAB48 PO
[2020-10-27] MEDS ORDERED: methylPREDNISolone SOD SUCC/PF 62.5 MG/ML VIAL IVP ONE (07:15)
[2020-10-27] MEDS ORDERED: IPRATROPIUM/ALBUTEROL SULFATE 3 ML AMPUL.NEB (DUONEB) INH ONE (07:15)
[2020-10-27] MEDS ORDERED: ALBUTEROL SULFATE 0.083% 2.5 MG/3 ML VIAL.NEB INH ONE (10:00)
[2020-10-27 10:53] VITALS: BP_SYST 124
== END 2020-10-27 10:54 | disposition home or self-care (01) ==
LOC: SED 06:58
DX: J45.901 Unspecified asthma with (acute) exacerbation (principal); E11.9 Type 2 diabetes mellitus without complications; K21.9 Gastro-esophageal reflux disease without esophagitis; F17.210 Nicotine dependence, cigarettes, uncomplicated; Z79.899 Other long term (current) drug therapy; Z88.1 Allergy status to other antibiotic agents; Z88.4 Allergy status to anesthetic agent; Z88.8 Allergy status to other drugs, medicaments and biological substances; Z20.822 Contact with and (suspected) exposure to COVID-19
CPT/HCPCS: 36415; 71045; 87426; 94640; 96374; 99284; J2930; J7613

== ENCOUNTER 2020-11-02 14:52 | Emergency (ER) | payer MEDICAID, SELFPAY ==
[~2020-11-02] VITALS: Ht 167.6 cm; Wt 52.2 kg
--- NOTE | 2020-11-02 14:52 | NUR ---
Placed in room 4. Placed on cephalometric analyst, blood pressure machine and pulse oximeter. To gown for exam. Side rails up. Report given to MARGARITO Gonsales.
--- NOTE | 2020-11-02 14:53 | NUR ---
Patient came in via EMS for prescription refill, told EMS she had SOB, given breathing treatment en route. O2 sat of 95% on room air upon arrival.
--- NOTE | 2020-11-02 14:54 | NUR ---
ER Dr. White at bedside examining patient.
[2020-11-02 14:58] VITALS: BP_SYST 128
--- NOTE | 2020-11-02 15:02 | NUR ---
Dietary called for lunch tray.
--- NOTE | 2020-11-02 15:15 | NUR ---
DENIES CP/SOB. STATED FEELING BETTER AND WANTING TO GO HOME. CALM, ALERT, RESP UNLABORED, SKIN WARM AND DRY
--- NOTE | 2020-11-02 15:30 | NUR ---
CALL MADE TO BRISA WHO IS IN ROUTE TO ROUTE AIDE PATIENT
--- NOTE | 2020-11-02 15:35 | NUR ---
Lunch tray provided.
[2020-11-02] MEDS ORDERED: IPRATROPIUM/ALBUTEROL SULFATE 3 ML AMPUL.NEB (DUONEB) INH PRN (15:45)
[2020-11-02] MEDS ORDERED: INSULIN ASPART 100 UNITS/ML, 10 ML VIAL (NovoLOG) SUBCUT PRN (15:45)
[2020-11-02] MEDS ORDERED: NACL 0.9% 1,000 ML IV SCH (15:45)
--- NOTE | 2020-11-02 15:45 | NUR ---
Patient given written and verbal discharge instructions and verbalizes understanding. DR. MARCE FOWLER MD discussed with patient the results and treatment provided. Patient in stable condition. ID arm band removed. Rx given. Patient educated on pain management and to follow up with PMD. Pain Scale 0/10. Opportunity for questions provided and answered. Medication side effect fact sheet provided.
[2020-11-02 15:49] VITALS: BP_SYST 124
== END 2020-11-02 15:49 | disposition home or self-care (01) ==
LOC: SED 14:52
DX: J44.9 Chronic obstructive pulmonary disease, unspecified (principal); F15.10 Other stimulant abuse, uncomplicated; K21.9 Gastro-esophageal reflux disease without esophagitis; E11.9 Type 2 diabetes mellitus without complications; F17.210 Nicotine dependence, cigarettes, uncomplicated; Z79.899 Other long term (current) drug therapy; Z88.1 Allergy status to other antibiotic agents; Z91.018 Allergy to other foods; Z88.4 Allergy status to anesthetic agent
CPT/HCPCS: 99283

== ENCOUNTER 2020-11-30 08:48 | Emergency (ER) | payer MEDICAID, SELFPAY ==
[~2020-11-30] VITALS: Ht 152.4 cm; Wt 43.1 kg
[2020-11-30 08:48] VITALS: BP_SYST 154
[2020-11-30] MEDS ORDERED: IPRATROPIUM/ALBUTEROL SULFATE 3 ML AMPUL.NEB (DUONEB) INH ONE (09:00)
[2020-11-30] MEDS ORDERED: predniSONE 20 MG TABLET PO ONE (09:15)
[2020-11-30] MEDS ORDERED: FLUT1DIS5 IH (10:17)
[2020-11-30] MEDS ORDERED: ALBU4TAB4 PO (10:17)
[2020-11-30] MEDS ORDERED: IPRA4AER INH (10:19)
[2020-11-30] MEDS ORDERED: PRED50TA PO (10:19)
[2020-11-30 10:43] VITALS: BP_SYST 154
== END 2020-11-30 10:43 | disposition home or self-care (01) ==
LOC: SED 08:48
DX: J45.909 Unspecified asthma, uncomplicated (principal); K21.9 Gastro-esophageal reflux disease without esophagitis; E11.9 Type 2 diabetes mellitus without complications; F17.200 Nicotine dependence, unspecified, uncomplicated; F15.90 Other stimulant use, unspecified, uncomplicated; Z79.899 Other long term (current) drug therapy; Z88.1 Allergy status to other antibiotic agents; Z88.4 Allergy status to anesthetic agent; Z91.018 Allergy to other foods
CPT/HCPCS: 94640; 99283; J7512

== ENCOUNTER 2021-01-02 07:28 | Emergency (ER) | payer MEDICAID, SELFPAY ==
[~2021-01-02] VITALS: Ht 157.5 cm; Wt 40.8 kg
[~2021-01-02 07:28] MED LIST changes: +ALBU4TAB4 PO; +FLUT1DIS5 IH; +PRED50TA PO
[2021-01-02 07:33] VITALS: BP_SYST 95
[2021-01-02] MEDS: IPRATROPIUM BROM 0.5 MG/2.5 ML VIAL.NEB (ATROVENT) INH ONE (07:47)
[2021-01-02] MEDS: ALBUTEROL SULFATE 0.083% 2.5 MG/3 ML VIAL.NEB INH ONE (07:47)
[2021-01-02] MEDS: methylPREDNISolone SOD SUCC/PF 62.5 MG/ML VIAL IVP ONE (07:48)
[2021-01-02] MEDS ORDERED: ALBMDI INH (09:05)
[2021-01-02] MEDS ORDERED: PRED20TA PO (09:05)
[2021-01-02 10:04] VITALS: BP_SYST 104
== END 2021-01-02 10:04 | disposition home or self-care (01) ==
LOC: SED 07:28
DX: J44.1 Chronic obstructive pulmonary disease with (acute) exacerbation (principal); F17.200 Nicotine dependence, unspecified, uncomplicated; F15.90 Other stimulant use, unspecified, uncomplicated
CPT/HCPCS: 71045; 94640; 96374; 99283; J2930; J7613

== ENCOUNTER 2021-01-11 12:04 | Emergency (ER) | payer MEDICAID ==
[~2021-01-11] VITALS: Ht 167.6 cm; Wt 45.4 kg
[~2021-01-11 12:04] MED LIST changes: +PRED20TA PO
[2021-01-11 12:09] VITALS: BP_SYST 123
[2021-01-11] MEDS ORDERED: IPRATROPIUM/ALBUTEROL SULFATE 3 ML AMPUL.NEB (DUONEB) INH ONE (12:45)
[2021-01-11] MEDS ORDERED: predniSONE 20 MG TABLET PO ONE (12:45)
[2021-01-11] MEDS ORDERED: PRED50TA PO (13:30)
[2021-01-11] MEDS ORDERED: ALBMDI INH (13:30)
[2021-01-11] MEDS ORDERED: IPRA4AER INH (13:30)
[2021-01-11 13:45] VITALS: BP_SYST 119
== END 2021-01-11 13:45 | disposition home or self-care (01) ==
LOC: SED 12:04
DX: J44.1 Chronic obstructive pulmonary disease with (acute) exacerbation (principal); K21.9 Gastro-esophageal reflux disease without esophagitis; E11.9 Type 2 diabetes mellitus without complications; F15.90 Other stimulant use, unspecified, uncomplicated; Z79.899 Other long term (current) drug therapy; Z88.1 Allergy status to other antibiotic agents; Z88.4 Allergy status to anesthetic agent; Z88.8 Allergy status to other drugs, medicaments and biological substances
CPT/HCPCS: 94640; 99283; J7512

== ENCOUNTER 2021-01-19 04:30 | Emergency (ER) | payer MEDICAID ==
[~2021-01-19] VITALS: Ht 165.1 cm; Wt 45.4 kg
[2021-01-19 04:45] VITALS: BP_SYST 204
[2021-01-19] MEDS ORDERED: LORazepam 2 MG/ML VIAL IM ONE (05:15)
[2021-01-19] MEDS ORDERED: VANCOMYCIN HCL 1,000 MG in NS 250 ML IV ONE (09:00)
[2021-01-19 09:12] LABS: BASOPHILS % (AUTO) 0.2 % (0.0-2.0); HEMATOCRIT 42.2 % (36-48); HEMOGLOBIN 13.8 g/dL (12.0-16.0); LYMPHOCYTES % (AUTO) 11.8 % (20.5-51.5); MEAN CORPUSCULAR HEMOGLOBIN 29 pg (27-31); MEAN CORPUSCULAR HGB CONC 33 % (32-36); MEAN CORPUSCULAR VOLUME 88 fL (79.0-98.0); MONOCYTES # (AUTO) 0.6 K/uL (0.0-1.0); MONOCYTES % (AUTO) 7.1 % (1.7-9.3); NEUTROPHILS # (AUTO) 6.5 K/uL (1.8-7.7); NEUTROPHILS % (AUTO) 80.9 % (40.0-70.0); PLATELET COUNT (AUTO) 282 K/uL (130-430); RED BLOOD CELL COUNT(AUTO) 4.82 MIL/uL (4.2-6.2); RED CELL DISTRIBUTION WIDTH 14.6 % (9.0-15.0); WHITE BLOOD COUNT (AUTO) 8.1 K/uL (4.8-10.8)
[2021-01-19 09:23] LABS: CALCIUM 8.8 mg/dL (8.4-11.0); CREATININE 0.68 mg/dL (0.55-1.30); POTASSIUM 4.1 mmol/L (3.5-5.1)
[2021-01-19] MEDS ORDERED: VANCOMYCIN HCL 1000 MG/VIAL IV ONE (09:24)
[2021-01-19 09:25] LABS: INR 0.9 (0.8-1.2); PROTHROMBIN TIME 9.7 SECS (9.5-12.5)
[2021-01-19 09:29] LABS: ALBUMIN 3.7 g/dL (3.4-4.8); TOTAL BILIRUBIN 0.3 mg/dL (0.0-1.0)
[2021-01-19] MEDS ORDERED: KETOROLAC TROMETHAMINE 30 MG VIAL IVP ONE (09:45)
[2021-01-19] MEDS ORDERED: ACET325T PO (12:11)
[2021-01-19] MEDS ORDERED: LEVO750T45 PO (12:11)
[2021-01-19 12:57] VITALS: BP_SYST 142
== END 2021-01-19 12:55 | disposition home or self-care (01) ==
LOC: SED 04:30
DX: T43.621A Poisoning by amphetamines, accidental (unintentional), initial encounter (principal); M24.412 Recurrent dislocation, left shoulder; F17.210 Nicotine dependence, cigarettes, uncomplicated; K21.9 Gastro-esophageal reflux disease without esophagitis; J44.9 Chronic obstructive pulmonary disease, unspecified; E11.9 Type 2 diabetes mellitus without complications; Z79.899 Other long term (current) drug therapy; Z79.82 Long term (current) use of aspirin; Z88.4 Allergy status to anesthetic agent; Z88.1 Allergy status to other antibiotic agents; Y92.89 Other specified places as the place of occurrence of the external cause
CPT/HCPCS: 29105; 36415; 73020; 73030; 73080; 80053; 85025; 85610; 85651; 85730; 86140; 87040; 96365; 96372; 96375; 99285; J1885; J2060; J3370

== ENCOUNTER 2021-02-08 16:50 | Emergency (ER) | payer MEDICAID, SELFPAY ==
[~2021-02-08] VITALS: Ht 157.5 cm; Wt 45.4 kg
[2021-02-08 16:50] VITALS: BP_SYST 142
[~2021-02-08 16:50] MED LIST changes: -ALBU4TAB4 PO; -PRED20TA PO; -PRED5TAB PO; -SULF1TAB48 PO
--- NOTE | 2021-02-08 16:50 | NUR ---
Patient to ER bed 7 to gown for evaluation. Side rails up. Report given to MARGARITO Houston.
--- NOTE | 2021-02-08 16:51 | NUR ---
Patient was discharged today, but states her medication was not sent to her pharmacy. Patient is requesting combivent, prednisone, and albuterol prescription be sent to her pharmacy.
--- NOTE | 2021-02-08 17:07 | NUR ---
ER Dr. De Jesus at bedside examining patient.
--- NOTE | 2021-02-08 17:25 | NUR ---
Patient given written and verbal discharge instructions and verbalizes understanding. ER MD discussed with patient the results and treatment provided. Patient in stable condition. ID arm band removed. Rx of albuterol,combivent,prednisone given. Patient educated on pain management and to follow up with PMD. Pain Scale 0/10. Opportunity for questions provided and answered. Medication side effect fact sheet provided.
[2021-02-08 17:26] VITALS: BP_SYST 142
== END 2021-02-08 17:25 | disposition home or self-care (01) ==
LOC: SED 16:50
DX: J45.909 Unspecified asthma, uncomplicated (principal); E11.9 Type 2 diabetes mellitus without complications; K21.9 Gastro-esophageal reflux disease without esophagitis; F12.90 Cannabis use, unspecified, uncomplicated; Z76.0 Encounter for issue of repeat prescription; Z88.8 Allergy status to other drugs, medicaments and biological substances; Z79.899 Other long term (current) drug therapy
CPT/HCPCS: 99281

== ENCOUNTER 2021-03-03 15:47 | Emergency (ER) | payer MEDICAID ==
[~2021-03-03] VITALS: Ht 157.5 cm; Wt 45.4 kg
[2021-03-03 15:50] VITALS: BP_SYST 148
[2021-03-03] MEDS ORDERED: DEXAMETHASONE SOD PHOSPHATE 10 MG/ML VIAL IM ONE (16:15)
[2021-03-03] MEDS ORDERED: IPRATROPIUM/ALBUTEROL SULFATE 3 ML AMPUL.NEB (DUONEB) INH ONE (17:30)
[2021-03-03] MEDS ORDERED: LORA10TA68 PO (18:12)
[2021-03-03] MEDS ORDERED: ALBMDI INH (18:12)
[2021-03-03] MEDS ORDERED: PRED50TA PO (18:12)
[2021-03-03] MEDS ORDERED: IPRA4AER INH (18:12)
[2021-03-03 18:26] VITALS: BP_SYST 148
== END 2021-03-03 18:28 | disposition home or self-care (01) ==
LOC: SED 15:47
DX: J44.1 Chronic obstructive pulmonary disease with (acute) exacerbation (principal); E11.9 Type 2 diabetes mellitus without complications; K21.9 Gastro-esophageal reflux disease without esophagitis; Z76.0 Encounter for issue of repeat prescription; Z88.8 Allergy status to other drugs, medicaments and biological substances; Z79.899 Other long term (current) drug therapy
CPT/HCPCS: 94640; 96372; 99283; J1100; 94010

== ENCOUNTER 2021-04-18 13:13 | Emergency (ER) | payer MEDICAID, SELFPAY ==
[~2021-04-18] VITALS: Ht 157.5 cm; Wt 40.8 kg
[2021-04-18 13:13] VITALS: BP_SYST 157
[~2021-04-18 13:13] MED LIST changes: +LORA10TA68 PO
--- NOTE | 2021-04-18 13:15 | NUR ---
Patient to ER bed 06 to gown for evaluation. Side rails up.
--- NOTE | 2021-04-18 13:20 | NUR ---
ER at bedside examining patient.
[2021-04-18] MEDS ORDERED: HALOPERIDOL LACTATE 5 MG/ML VIAL ONE (13:23)
[2021-04-18] MEDS ORDERED: DIPHENHYDRAMINE INJ 50 MG/ML VIAL ONE (13:23)
[2021-04-18] MEDS ORDERED: LORazepam 2 MG/ML VIAL ONE (13:24)
--- NOTE | 2021-04-18 13:24 | NUR ---
Beny genao in ED - 04/18/21 at 1341 by SDEDAFJ Placed in room 06 . Placed on monitoring manager, blood pressure machine and pulse oximeter. To gown for exam. Side rails up.
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
[2021-04-18] MEDS ORDERED: HALOPERIDOL LACTATE 5 MG/ML VIAL IVP ONE (13:30)
[2021-04-18] MEDS ORDERED: LORazepam 2 MG/ML VIAL IM ONE (13:30)
[2021-04-18] MEDS ORDERED: DIPHENHYDRAMINE INJ 50 MG/ML VIAL IM ONE (13:30)
[2021-04-18] MEDS ORDERED: NACL 0.9% 1,000 ML IV ONE (13:45)
--- NOTE | 2021-04-18 13:52 | NUR ---
# 20 gauge angiocath placed to right forearm. Use of asceptic technique. Opsite placed over site. Blood return noted. Blood for lab drawn from site. Flushed with 10 cc of normal saline. No evidence of infiltration noted. Patient tolerated well.
[2021-04-18 14:01] LABS: BASOPHILS % (AUTO) 0.3 % (0.0-2.0); EOSINOPHILS # (AUTO) 1.1 K/uL (0.0-0.4); EOSINOPHILS % (AUTO) 8.5 % (0.0-4.0); HEMATOCRIT 38.9 % (36-48); HEMOGLOBIN 12.7 g/dL (12.0-16.0); LYMPHOCYTES % (AUTO) 7.8 % (20.5-51.5); MEAN CORPUSCULAR HEMOGLOBIN 30 pg (27-31); MEAN CORPUSCULAR HGB CONC 33 % (32-36); MEAN CORPUSCULAR VOLUME 91 fL (79.0-98.0); MONOCYTES # (AUTO) 0.7 K/uL (0.0-1.0); MONOCYTES % (AUTO) 5.5 % (1.7-9.3); NEUTROPHILS # (AUTO) 9.7 K/uL (1.8-7.7); NEUTROPHILS % (AUTO) 77.9 % (40.0-70.0); PLATELET COUNT (AUTO) 253 K/uL (130-430); RED BLOOD CELL COUNT(AUTO) 4.28 MIL/uL (4.2-6.2); RED CELL DISTRIBUTION WIDTH 13.9 % (9.0-15.0); WHITE BLOOD COUNT (AUTO) 12.5 K/uL (4.8-10.8)
--- NOTE | 2021-04-18 14:05 | NUR ---
O2 sat 86% on room air, O2 on at 3L/min via NC sat up to 94%, pt. remains restless in bed
--- NOTE | 2021-04-18 14:10 | NUR ---
went to hand IVF IV dislodged, from constant movement, covid and MRSA swab obtained
[2021-04-18 14:18] LABS: ANION GAP 9 (5-15); CALCIUM 8.7 mg/dL (8.4-11.0); CHLORIDE 107 mmol/L (98-107); CREATININE 0.66 mg/dL (0.55-1.30); GLUCOSE 137 mg/dL (70-99); POTASSIUM 3.4 mmol/L (3.5-5.1); SODIUM SERUM 145 mmol/L (136-145); UREA NITROGEN, BLOOD 16 mg/dL (8-21)
[2021-04-18 14:24] LABS: ALANINE AMINOTRANSFERASE 41 U/L (12-78); ALBUMIN 3.5 g/dL (3.4-4.8); ASPARTATE AMINOTRANSFERASE 43 U/L (10-37); GFR AFRICAN AMERICAN 121 mL/min (>90); TOTAL BILIRUBIN 0.5 mg/dL (0.0-1.0)
[2021-04-18 14:25] LABS: ACETAMINOPHEN < 1 ug/mL (1-30); ALCOHOL, BLOOD < 3 mg/dL (<10)
[2021-04-18 14:45] LABS: CHOLESTEROL 136 mg/dL (<200); HDL CHOLESTEROL 70 mg/dL (>55); LDL CHOLESTEROL 65 mg/dL (<100); TRIGLYCERIDES 40 mg/dL (30-150)
[2021-04-18 16:02] LABS: BILIRUBIN,URINE NEGATIVE (NEGATIVE); CLARITY/URINE CLOUDY (CLEAR); COLOR,URINE YELLOW (YELLOW); GLUCOSE,URINE NEGATIVE (NEGATIVE); KETONES,URINE NEGATIVE (NEGATIVE); LEUKOCYTE ESTERASE ,URINE 3+ (NEGATIVE); NITRITE, URINE POSITIVE (NEGATIVE); PROTEIN URINE NEGATIVE (NEGATIVE); UROBILINOGEN,URINE 0.2 (0.2-1.0)
[2021-04-18 16:17] LABS: BLOOD, URINE TRACE (NEGATIVE)
[2021-04-18] MEDS ORDERED: cefTRIAXone 1 GM IVPB PREMIX 50 ML IV ONE (16:30)
[2021-04-18 16:41] LABS: BACTERIA,URINE MANY /HPF (None Seen); WBC,URINE >100 /HPF (0-3)
[2021-04-18 16:42] LABS: MUCUS,URINE None Seen /LPF (None Seen)
[2021-04-18 16:44] LABS: BARBITURATE, URINE NEGATIVE (NEG <=200); BENZODIAZEPINE, URINE NEGATIVE (NEG <=150); CANNABINOID, URINE NEGATIVE (NEG <=50); COCAINE, URINE NEGATIVE (NEG <=150); METHAMPHETAMINES SCREEN,URINE POSITIVE (NEG <=500); OPIATE, URINE NEGATIVE (NEG <=100); PHENCYCLIDINE SCREEN,URINE NEGATIVE (NEG <=25); UR TRICYCLIC ANTIDEPRESSANTS NEGATIVE (NEG <=300); URINE AMPHETAMINE POSITIVE (NEG <=500); URINE METHADONE NEGATIVE (NEG <=200); URINE OXYCODONE SCREEN NEGATIVE (NEG <=100); URINE PROPOXYPHENE SCREEN NEGATIVE (NEG <=300)
--- NOTE | 2021-04-18 19:12 | NUR ---
Received report from MARGARITO Houston/
--- NOTE | 2021-04-18 19:25 | NUR ---
Patient restless, pacing, removed IV line, removed oxygen canula. Dr. De Jesus notified. -Verbal order soft restraint.
--- NOTE | 2021-04-18 19:30 | NUR ---
Change new bed sheet, gown, and placed soft restraint.
--- NOTE | 2021-04-18 21:18 | NUR ---
Patient resting quietly. No acute distress noted. Vital signs within normal range.
--- NOTE | 2021-04-18 21:34 | NUR ---
Release soft restraint. Patient is sleeping, no acute distress.
--- NOTE | 2021-04-18 22:40 | NUR ---
Patient resting quietly. No acute distress noted. Vital signs within normal range.
--- NOTE | 2021-04-19 00:02 | NUR ---
Patient resting quietly. No acute distress noted. Vital signs within normal range.
--- NOTE | 2021-04-19 01:09 | NUR ---
Re-position patient, Patient resting quietly. No acute distress noted. Vital signs within normal range.
--- NOTE | 2021-04-19 02:34 | NUR ---
Patient resting quietly. No acute distress noted. Vital signs within normal range.
--- NOTE | 2021-04-19 03:45 | NUR ---
Patient resting quietly. No acute distress noted. Vital signs within normal range.
--- NOTE | 2021-04-19 04:41 | NUR ---
Patient resting quietly. No acute distress noted. Vital signs within normal range.
--- NOTE | 2021-04-19 05:36 | NUR ---
Patient resting quietly. No acute distress noted. Vital signs within normal range.
--- NOTE | 2021-04-19 06:37 | NUR ---
Patient resting quietly. No acute distress noted. Vital signs within normal range.
--- NOTE | 2021-04-19 07:20 | NUR ---
report received from Mayra PIMENTEL. Pt is currently sleeping.
--- NOTE | 2021-04-19 09:44 | NUR ---
DR. MORALES AT THE BEDSIDE
[2021-04-19 10:49] VITALS: BP_SYST 140
--- NOTE | 2021-04-19 10:50 | NUR ---
Patient given written and verbal discharge instructions and verbalizes understanding. ER MD discussed with patient the results and treatment provided. Patient in stable condition. ID arm band removed. Patient educated on pain management and to follow up with PMD. Pain Scale 0/10.Opportunity for questions provided and answered. Medication side effect fact sheet provided.
[2021-04-19] MEDS ORDERED: ALBMDI INH (10:52)
== END 2021-04-19 10:50 | disposition home or self-care (01) ==
LOC: SED 13:13
DX: F23 Brief psychotic disorder (principal); F15.10 Other stimulant abuse, uncomplicated; E11.9 Type 2 diabetes mellitus without complications; J44.9 Chronic obstructive pulmonary disease, unspecified; K21.9 Gastro-esophageal reflux disease without esophagitis; Z79.899 Other long term (current) drug therapy; Z88.1 Allergy status to other antibiotic agents; Z88.8 Allergy status to other drugs, medicaments and biological substances; Z20.822 Contact with and (suspected) exposure to COVID-19
CPT/HCPCS: 36415; 80053; 80061; 80307; 81000; 83605; 85025; 87040; 87081; 87086; 87426; 96361; 96365; 96372; 99285; G0480; G0481; G0482; J0696; J1200; J1630; J2060; J7030

== ENCOUNTER 2021-04-26 21:57 | Emergency (ER) | payer MEDICAID, SELFPAY ==
[~2021-04-26] VITALS: Ht 162.6 cm; Wt 45.4 kg
[2021-04-26 22:09] VITALS: BP_SYST 129
[2021-04-26] MEDS ORDERED: IPRATROPIUM/ALBUTEROL SULFATE 3 ML AMPUL.NEB (DUONEB) INH ONE ×3 (22:15→23:45)
[2021-04-26] MEDS ORDERED: IPRATROPIUM/ALBUTEROL SULFATE 3 ML AMPUL.NEB (DUONEB) ONE (22:17)
[2021-04-26] MEDS ORDERED: predniSONE 20 MG TABLET PO ONE (22:45)
[2021-04-27] MEDS ORDERED: MAGNESIUM SULFATE 50 ML IV ONE (00:15)
[2021-04-27] MEDS ORDERED: IPRATROPIUM/ALBUTEROL SULFATE 3 ML AMPUL.NEB (DUONEB) INH ONE (00:15)
[2021-04-27] MEDS ORDERED: IPRATROPIUM/ALBUTEROL SULFATE 3 ML AMPUL.NEB (DUONEB) ONE (00:21)
[2021-04-27] MEDS ORDERED: ALBU8.5H8 INH (02:03)
[2021-04-27] MEDS ORDERED: PRED20TA PO (02:03)
[2021-04-27 03:00] VITALS: BP_SYST 119
== END 2021-04-27 03:00 | disposition home or self-care (01) ==
LOC: SED 21:57
DX: J45.901 Unspecified asthma with (acute) exacerbation (principal); J44.9 Chronic obstructive pulmonary disease, unspecified; E11.9 Type 2 diabetes mellitus without complications; K21.9 Gastro-esophageal reflux disease without esophagitis; Z88.8 Allergy status to other drugs, medicaments and biological substances; Z79.899 Other long term (current) drug therapy
CPT/HCPCS: 71045; 94640 ×2; 96365; 99285; J3475; J7512

== ENCOUNTER 2021-10-15 15:57 | Emergency (ER) | payer MEDICAID, SELFPAY ==
[~2021-10-15] VITALS: Ht 167.6 cm; Wt 43.1 kg
[~2021-10-15 15:57] MED LIST changes: +ALBU8.5H8 INH; +PRED20TA PO
[2021-10-15 16:00] VITALS: BP_SYST 157
[2021-10-15] MEDS ORDERED: PRED20TA PO (17:25)
[2021-10-15] MEDS ORDERED: BUDE6HFA INH (17:25)
[2021-10-15] MEDS ORDERED: BENZ100C92 PO (17:25)
[2021-10-15] MEDS ORDERED: ALBMDI INH (17:25)
== END 2021-10-15 17:39 | disposition home or self-care (01) ==
LOC: SED 15:57
DX: J45.901 Unspecified asthma with (acute) exacerbation (principal); E11.9 Type 2 diabetes mellitus without complications; K21.9 Gastro-esophageal reflux disease without esophagitis; Z88.1 Allergy status to other antibiotic agents; Z88.8 Allergy status to other drugs, medicaments and biological substances; Z79.1 Long term (current) use of non-steroidal anti-inflammatories (NSAID); Z79.899 Other long term (current) drug therapy
CPT/HCPCS: 99283

== ENCOUNTER 2021-12-13 13:56 | Emergency (ER) | payer MEDICAID, SELFPAY ==
[~2021-12-13] VITALS: Ht 167.6 cm; Wt 43.1 kg
[~2021-12-13 13:56] MED LIST changes: +BENZ100C92 PO; +BUDE6HFA INH
[2021-12-13 14:04] VITALS: BP_SYST 124
[2021-12-13] MEDS ORDERED: PRED20TA PO (14:39)
[2021-12-13] MEDS ORDERED: AZIT-93 PO (14:39)
[2021-12-13] MEDS ORDERED: ALBU8.5H8 INH (14:39)
[2021-12-13] MEDS ORDERED: ALBUTEROL SULFATE 0.083% 2.5 MG/3 ML VIAL.NEB INH ONE (14:45)
[2021-12-13] MEDS ORDERED: predniSONE 20 MG TABLET PO ONE (14:45)
[2021-12-13] MEDS ORDERED: BUDE6HFA INH (16:54)
[2021-12-13 17:12] VITALS: BP_SYST 110
== END 2021-12-13 17:12 | disposition home or self-care (01) ==
LOC: SED 13:56
DX: J45.901 Unspecified asthma with (acute) exacerbation (principal); J44.9 Chronic obstructive pulmonary disease, unspecified; E11.9 Type 2 diabetes mellitus without complications; K21.9 Gastro-esophageal reflux disease without esophagitis; Z79.899 Other long term (current) drug therapy; Z88.1 Allergy status to other antibiotic agents; Z88.8 Allergy status to other drugs, medicaments and biological substances; Z20.822 Contact with and (suspected) exposure to COVID-19
CPT/HCPCS: 71045; 87426; 94640; 99284; J7512; J7613; 36415

== ENCOUNTER 2022-02-03 08:26 | Emergency (ER) | payer MEDICAID ==
[~2022-02-03] VITALS: Ht 167.6 cm; Wt 45.4 kg
[~2022-02-03 08:26] MED LIST changes: +AZIT-93 PO
--- NOTE | 2022-02-03 08:28 | NUR ---
Patient to ER bed 8 to gown for evaluation. Side rails up. Report given to DEVYN PIMENTEL.
--- NOTE | 2022-02-03 08:30 | NUR ---
PT PRESENTS TO ED C/O SOB AFTER RUNNING OUT OF MEDICATION FOR COPD.PT HAS MILD RESP DISTRESS NOTED.PT ABLE TO SPEAK IN FULL SENTENCES.
--- NOTE | 2022-02-03 08:35 | NUR ---
ER at bedside examining patient.
--- NOTE | 2022-02-03 08:40 | NUR ---
RT AT BEDSIDE
[2022-02-03] MEDS ORDERED: predniSONE 20 MG TABLET PO ONE (08:45)
[2022-02-03] MEDS ORDERED: IPRATROPIUM/ALBUTEROL SULFATE 3 ML AMPUL.NEB (DUONEB) INH ONE (08:45)
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
[2022-02-03] MEDS ORDERED: PRED20TA PO (09:13)
[2022-02-03] MEDS ORDERED: ALBU8.5H8 INH (09:13)
[2022-02-03] MEDS ORDERED: BUDE6HFA INH (09:13)
--- NOTE | 2022-02-03 09:44 | NUR ---
Dr Santillan at patients bedside
--- NOTE | 2022-02-03 10:46 | NUR ---
assessed pt, pt is stable with vs within normal limits, she is resting comfortably in bed with eyes closed. pt stated she is feeling better but would like to rest. adv aok, bed lowered and locked with rails up
[2022-02-03 11:25] VITALS: BP_SYST 116
--- NOTE | 2022-02-03 11:26 | NUR ---
Patient given written and verbal discharge instructions and verbalizes understanding. ER MD discussed with patient the results and treatment provided. Patient in stable condition. ID arm band removed. IV catheter removed intact and dressing applied, no active bleeding. Rx of Albuterol, Symbicort, Prednisone given. Patient educated on pain management and to follow up with PMD. Pain Scale . Opportunity for questions provided and answered. Medication side effect fact sheet provided.
== END 2022-02-03 11:25 | disposition home or self-care (01) ==
LOC: SED 08:26
DX: J44.1 Chronic obstructive pulmonary disease with (acute) exacerbation (principal); K21.9 Gastro-esophageal reflux disease without esophagitis; F17.200 Nicotine dependence, unspecified, uncomplicated; Z79.899 Other long term (current) drug therapy
CPT/HCPCS: 94640; 99283; J7512

== ENCOUNTER 2022-03-30 07:08 | Emergency (ER) | payer MEDICAID ==
[~2022-03-30] VITALS: Ht 167.6 cm; Wt 49.9 kg
[2022-03-30 07:18] VITALS: BP_SYST 153
--- NOTE | 2022-03-30 07:18 | NUR ---
Patient to ER bed 7 to gown for evaluation. Side rails up. Report given to Eder PIMENTEL.
--- NOTE | 2022-03-30 07:21 | NUR ---
ERMD AT BEDSIDE AT THIS TIME
--- NOTE | 2022-03-30 07:24 | NUR ---
PLACED ON MONITOR, B/P , PULSE OX
[2022-03-30] MEDS ORDERED: IPRATROPIUM BROM 0.5 MG/2.5 ML VIAL.NEB (ATROVENT) INH ONE (07:30)
[2022-03-30] MEDS ORDERED: DEXAMETHASONE SOD PHOSPHATE 10 MG/ML VIAL IM ONE (07:30)
[2022-03-30] MEDS ORDERED: ALBUTEROL SULFATE 0.083% 2.5 MG/3 ML VIAL.NEB INH ONE (07:30)
[2022-03-30] MEDS ORDERED: BUDE6HFA INH (09:00)
[2022-03-30] MEDS ORDERED: ALBMDI INH (09:58)
[2022-03-30] MEDS ORDERED: SALM50DI2 INH (10:04)
[2022-03-30 10:09] VITALS: BP_SYST 146
--- NOTE | 2022-03-30 10:10 | NUR ---
Patient given written and verbal discharge instructions and verbalizes understanding. ER MD discussed with patient the results and treatment provided. Patient in stable condition. ID arm band removed. Rx of Serevent, Albuterol, and salmeterol given. Patient educated on pain management and to follow up with PMD. Pain Scale 0/10. Opportunity for questions provided and answered. Medication side effect fact sheet provided.
== END 2022-03-30 10:10 | disposition home or self-care (01) ==
LOC: SED 07:08
DX: J45.901 Unspecified asthma with (acute) exacerbation (principal); F17.200 Nicotine dependence, unspecified, uncomplicated; Z88.1 Allergy status to other antibiotic agents; Z88.4 Allergy status to anesthetic agent; Z71.6 Tobacco abuse counseling; Z91.09 Other allergy status, other than to drugs and biological substances; Z91.041 Radiographic dye allergy status; Z79.899 Other long term (current) drug therapy
CPT/HCPCS: 94640; 99283; J1100; J7613; 99284

== ENCOUNTER 2022-04-29 11:11 | Emergency (ER) | payer MEDICAID ==
[~2022-04-29] VITALS: Ht 167.6 cm; Wt 47.2 kg
[~2022-04-29 11:11] MED LIST changes: +SALM50DI2 INH
[2022-04-29 11:18] VITALS: BP_SYST 136
[2022-04-29] MEDS ORDERED: predniSONE 20 MG TABLET PO ONE (11:30)
[2022-04-29] MEDS ORDERED: IPRATROPIUM/ALBUTEROL SULFATE 3 ML AMPUL.NEB (DUONEB) INH ONE (11:30)
--- NOTE | 2022-04-29 11:40 | NUR ---
Pt in bed resting coming from home ambulatory with steady gait.Pt c/o wanting med refill and slight sob. Pt states she is almoast running our of her inhalers for her asthma and wants them filled along with a breathing tx. Pt is A&Ox4. Skin intact. VSS. No chest pain. Pt having slight sob wheezing heard. Bed in lowest position.
--- NOTE | 2022-04-29 11:50 | NUR ---
ER at bedside examining patient.
--- NOTE | 2022-04-29 12:27 | NUR ---
RT at bedside.
[2022-04-29] MEDS ORDERED: PRED20TA PO (12:41)
[2022-04-29] MEDS ORDERED: BUDE6HFA INH (12:41)
[2022-04-29] MEDS ORDERED: ALBU8.5H8 INH (12:41)
[2022-04-29] MEDS ORDERED: IPRA4AER INH (12:41)
--- NOTE | 2022-04-29 12:47 | NUR ---
Patient given written and verbal discharge instructions and verbalizes understanding. ER MD discussed with patient the results and treatment provided. Patient in stable condition. ID arm band removed. Patient educated on pain management and to follow up with PMD. Pain Scale 0/10. Opportunity for questions provided and answered. Medication side effect fact sheet provided.
--- NOTE | 2022-04-29 12:57 | NUR ---
CALL PLACED TO GIN HER CONTACT AND HE WILL PICK HER UP IN 10 MINUTES
== END 2022-04-29 12:47 | disposition home or self-care (01) ==
LOC: SED 11:11
DX: J45.901 Unspecified asthma with (acute) exacerbation (principal); J44.9 Chronic obstructive pulmonary disease, unspecified; K21.9 Gastro-esophageal reflux disease without esophagitis; F17.200 Nicotine dependence, unspecified, uncomplicated; Z76.0 Encounter for issue of repeat prescription; Z88.1 Allergy status to other antibiotic agents; Z88.4 Allergy status to anesthetic agent; Z91.09 Other allergy status, other than to drugs and biological substances; Z91.041 Radiographic dye allergy status; Z79.899 Other long term (current) drug therapy
CPT/HCPCS: 99283; 94640; J7512

== ENCOUNTER 2022-06-10 18:07 | Emergency (ER) | payer MEDICAID ==
[~2022-06-10] VITALS: Ht 167.6 cm; Wt 47.6 kg
--- NOTE | 2022-06-10 18:27 | NUR ---
BIBS WITH C/C OF FEELING IF SHE IS GOING TO HAVE AN ASTHMA EXACERBATION. NO RESP DISTRESS NOTED. PT STATES SHE IS SOB WITH PRODUCTIVE COUGH. HX OF CURRENT EVERY DAY SMOKER BUT STATES SHE HAS NOT SMOKED FOR 5 DAYS. HX OF SMOKING FOR 20+ YEARS. ON ROOM AIR WITH 93% O2 SAT. PRESENTS WITH EXPIRATORY WHEEZES. PT VERY EMACIATED AND DISHEVELED. PT TAKES ALBUTEROL INHALER BUT IS OUT.
[2022-06-10 18:33] VITALS: BP_SYST 121
[2022-06-10] MEDS ORDERED: IPRATROPIUM/ALBUTEROL SULFATE 3 ML AMPUL.NEB (DUONEB) INH ONE ×4 (18:45→19:15)
--- NOTE | 2022-06-10 18:46 | NUR ---
PLACED IN BED 7, REPORT GIVEN TO MARGARITO Muñoz
[2022-06-10] MEDS ORDERED: predniSONE 20 MG TABLET PO ONE (19:15)
--- NOTE | 2022-06-10 19:23 | NUR ---
report given to amena bowie
--- NOTE | 2022-06-10 19:25 | NUR ---
Pt seen by WIL in Triage. Received pt from triage, AAOX4, skin w/d to touch, resp reg, unlabored s/p resp treatment, lungs w/ decreased wheezing. Pending MD re-eval.
--- NOTE | 2022-06-10 21:00 | NUR ---
Pt stable s/p 2nd resp Tx. resp Reg unlabored.
[2022-06-10] MEDS ORDERED: PRED20TA PO (21:19)
[2022-06-10] MEDS ORDERED: BUDE6.9H INH (21:19)
[2022-06-10 21:20] VITALS: BP_SYST 118
--- NOTE | 2022-06-10 21:20 | NUR ---
Patient given written and verbal discharge instructions and verbalizes understanding. ER MD discussed with patient the results and treatment provided. Patient in stable condition. ID arm band removed. Patient educated on Resp. care and management and to follow up with PMD. Pain Scale 0/10. Opportunity for questions provided and answered.
== END 2022-06-10 21:20 | disposition home or self-care (01) ==
LOC: SED 18:07
DX: J45.901 Unspecified asthma with (acute) exacerbation (principal); J44.9 Chronic obstructive pulmonary disease, unspecified; K21.9 Gastro-esophageal reflux disease without esophagitis; R05.9 Cough, unspecified; R06.02 Shortness of breath; F17.290 Nicotine dependence, other tobacco product, uncomplicated; Z88.1 Allergy status to other antibiotic agents; Z88.4 Allergy status to anesthetic agent; Z91.09 Other allergy status, other than to drugs and biological substances; Z91.041 Radiographic dye allergy status; Z79.899 Other long term (current) drug therapy; Z20.822 Contact with and (suspected) exposure to COVID-19
CPT/HCPCS: 99283; 87426; 36415; 94640; J7512

== ENCOUNTER 2022-07-18 08:58 | Emergency (ER) | payer MEDICAID ==
[~2022-07-18] VITALS: Ht 170.2 cm; Wt 45.4 kg
[~2022-07-18 08:58] MED LIST changes: +BUDE6.9H INH
[2022-07-18 09:07] VITALS: BP_SYST 110
[2022-07-18] MEDS ORDERED: IPRATROPIUM/ALBUTEROL SULFATE 3 ML AMPUL.NEB (DUONEB) INH ONE ×2 (09:45→11:00)
[2022-07-18] MEDS ORDERED: predniSONE 20 MG TABLET PO ONE (09:45)
--- NOTE | 2022-07-18 09:45 | NUR ---
Patient to ER bed 02 to gown for evaluation. Side rails up.
--- NOTE | 2022-07-18 09:50 | NUR ---
Pt came in from home c/o asthma symptoms since 07/17/22. Pt has hx of asthma since childhood. oxygen saturation of 93% on arrival. Pt states chest feels tight and her inhaler is either empty or ineffective. Pt has allergies to iodine, lidocaine, menthol and neomycin. Pt is A&Ox4, calm and cooperative. Care will be provided as ordered.
--- NOTE | 2022-07-18 09:55 | NUR ---
ER Dr. Perdue at bedside examining patient.
--- NOTE | 2022-07-18 10:12 | NUR ---
Respiratory therapy at the bedside.
[2022-07-18] MEDS ORDERED: IBUPROFEN 600 MG TABLET PO ONE (11:30)
[2022-07-18] MEDS ORDERED: PRED50TA PO (11:37)
[2022-07-18] MEDS ORDERED: LORA10TA7 PO (11:37)
[2022-07-18] MEDS ORDERED: IPRA4AER INH (11:37)
[2022-07-18] MEDS ORDERED: BUDE90AE IH (11:37)
[2022-07-18] MEDS ORDERED: ALBMDI INH (11:37)
--- NOTE | 2022-07-18 12:12 | NUR ---
Patient given written and verbal discharge instructions and verbalizes understanding. ER Dr. Iron LYNNE discussed with patient the results and treatment provided. Patient in stable condition. ID arm band removed. Rx of albuterol, ipratropium, claritin, prednisone and budesonide given. Patient educated on pain management and to follow up with PMD. Pain Scale 0/10. Opportunity for questions provided and answered. Medication side effect fact sheet provided.
== END 2022-07-18 12:04 | disposition home or self-care (01) ==
LOC: SED 08:58
DX: J45.901 Unspecified asthma with (acute) exacerbation (principal); R06.02 Shortness of breath; K21.9 Gastro-esophageal reflux disease without esophagitis; Z88.1 Allergy status to other antibiotic agents; Z88.4 Allergy status to anesthetic agent; Z91.09 Other allergy status, other than to drugs and biological substances; Z91.041 Radiographic dye allergy status; Z79.899 Other long term (current) drug therapy
CPT/HCPCS: 99283; 94640; J7512

== ENCOUNTER 2022-07-31 07:36 | Emergency (ER) | payer MEDICAID ==
[~2022-07-31] VITALS: Ht 167.6 cm; Wt 45.4 kg
[~2022-07-31 07:36] MED LIST changes: +BUDE90AE IH; +LORA10TA7 PO
[2022-07-31 07:42] VITALS: BP_SYST 128; BP_SYST 137
--- NOTE | 2022-07-31 07:42 | NUR ---
Placed in room 4 . Placed on laboratory monitor, blood pressure machine and pulse oximeter. To gown for exam. Side rails up. Report given to MARGARITO FERNÁNDEZ.
[2022-07-31] MEDS ORDERED: IPRATROPIUM/ALBUTEROL SULFATE 3 ML AMPUL.NEB (DUONEB) INH ONE ×2 (07:45→08:45)
[2022-07-31] MEDS ORDERED: predniSONE 20 MG TABLET PO ONE (07:45)
--- NOTE | 2022-07-31 07:45 | NUR ---
ER DR. ADAMS AT THE BEDSIDE EXAMINING PT
--- NOTE | 2022-07-31 07:55 | NUR ---
MD DR ADAMS AT BEDSIDE
--- NOTE | 2022-07-31 08:09 | NUR ---
PT BIB BOYFRIEND, AWAKE AND ALERT AOX4. PT C/O SOB FOR PAST 3 DAYS. PT STATES HER INHALER IS NOT WORKING OR OUT. PERRLA. PT O2SAT WAS 91% RA.
--- NOTE | 2022-07-31 08:26 | NUR ---
PT WAS SATING AT 88% ON ROOM AIR, NC WAS PLACED ON AT 2 LPM. NOW PT IS SATING AT 97%
[2022-07-31] MEDS ORDERED: IPRA4AER INH (09:33)
[2022-07-31] MEDS ORDERED: PRED50TA PO (09:33)
[2022-07-31] MEDS ORDERED: BUDE6HFA INH (09:33)
[2022-07-31] MEDS ORDERED: ALBMDI INH (09:33)
--- NOTE | 2022-07-31 09:52 | NUR ---
Patient given written and verbal discharge instructions and verbalizes understanding. ER MD DR ADAMS discussed with patient the results and treatment provided. Patient in stable condition. ID arm band removed. Rx of IPRATROPIUM, PREDNISONE, SYMBICORT given. Patient educated on pain management and to follow up with PMD. Pain Scale 0/10. Opportunity for questions provided and answered. Medication side effect fact sheet provided.
[2022-07-31 09:55] VITALS: BP_SYST 120
== END 2022-07-31 09:55 | disposition home or self-care (01) ==
LOC: SED 07:36
DX: J44.9 Chronic obstructive pulmonary disease, unspecified (principal); R06.02 Shortness of breath; K21.9 Gastro-esophageal reflux disease without esophagitis; Z88.1 Allergy status to other antibiotic agents; Z88.4 Allergy status to anesthetic agent; Z91.041 Radiographic dye allergy status; Z91.09 Other allergy status, other than to drugs and biological substances; Z79.899 Other long term (current) drug therapy
CPT/HCPCS: 99285; 71045; 94640; J7512

== ENCOUNTER 2022-08-14 11:12 | Inpatient (IN) | payer MEDICAID ==
[~2022-08-14] VITALS: Ht 167.6 cm; Wt 46.7 kg
[~2022-08-14 11:12] MED LIST changes: -AZIT-93 PO; -BENZ100C92 PO; -BUDE6HFA INH; -BUDE90AE IH; -FLUT1DIS5 IH; -LORA10TA68 PO; +PRED10TA PO; -PRED20TA PO; -PRED50TA PO; -SALM50DI2 INH
--- NOTE | 2022-08-14 11:17 | NUR ---
Patient to ER bed 04 to gown for evaluation. Side rails up. Report given to Garrett PIMENTEL .
[2022-08-14 11:18] VITALS: BP_SYST 128
--- NOTE | 2022-08-14 11:51 | NUR ---
BIBS WITH C/C OF CONGESTION AND COUGH FOR 1 WEEK NOW WITH BODY ACHES. LUNGS CTA TO BASES, UPPER RESP SOUNDS TIGHT WITH RONCHI. ON EARRINGS FABRICATOR WITH ST NOTED AT 125. REPORTS BODY ACHES 05/10. PT DENIES ANY RECENT DRUG USE FOR 1 WEEK. PT SMOKER, WITH LAST CIGARETTE USED YESTERDAY. PENDING ORDERS. WILL MONITOR.
[2022-08-14 11:53] LABS: HEMATOCRIT 41.5 % (36-48); HEMOGLOBIN 13.8 g/dL (12.0-16.0); MEAN CORPUSCULAR HEMOGLOBIN 30 pg (27-31); MEAN CORPUSCULAR HGB CONC 33 % (32-36); MEAN CORPUSCULAR VOLUME 90 fL (79.0-98.0); PLATELET COUNT (AUTO) 339 K/uL (130-430); RED BLOOD CELL COUNT(AUTO) 4.62 MIL/uL (4.2-6.2); RED CELL DISTRIBUTION WIDTH 13.6 % (9.0-15.0)
--- NOTE | 2022-08-14 11:54 | NUR ---
SEEN BY DR. LANDIS AT BEDSIDE.
[2022-08-14 12:09] LABS: CALCIUM 8.8 mg/dL (8.4-11.0); CREATININE 0.68 mg/dL (0.55-1.30)
[2022-08-14 12:14] LABS: WHITE BLOOD COUNT (AUTO) 40.8 K/uL (4.8-10.8)
[2022-08-14 12:15] LABS: ALBUMIN 2.7 g/dL (3.4-4.8); TOTAL BILIRUBIN 0.3 mg/dL (0.0-1.0)
[2022-08-14] MEDS ORDERED: DOCUSATE SODIUM 100 MG CAPSULE PO PRN (13:15)
[2022-08-14] MEDS ORDERED: MUPIROCIN 2% TOPICAL OINTMENT 22 GM NS PRN (13:15)
[2022-08-14] MEDS ORDERED: MAGNESIUM SULFATE 50 ML IV PRN (13:15)
[2022-08-14] MEDS ORDERED: ZOLPIDEM TARTRATE 5 MG TABLET PO PRN (13:15)
[2022-08-14] MEDS ORDERED: POTASSIUM CHLORIDE 20 MEQ TAB.PRT.SR PO PRN (13:15)
[2022-08-14] MEDS ORDERED: ONDANSETRON HCL 4 MG/2 ML VIAL IVP PRN (13:15)
[2022-08-14] MEDS ORDERED: MORPHINE 2 MG/ML INJ. SYRINGE IVP PRN (13:15)
[2022-08-14 13:16] LABS: BAND % (MANUAL) 13 % (0-6); BASOPHILS % (MANUAL) 0 % (0-2); EOSINOPHILS % (MANUAL) 0 % (0-7); LYMPHOCYTES % (MANUAL) 3 % (20-46); MONOCYTES % (MANUAL) 3 % (0-11)
[2022-08-14] MEDS ORDERED: ACETAMINOPHEN 325 MG TABLET PO PRN (13:30)
--- NOTE | 2022-08-14 13:35 | NUR ---
Critical lab value: WBC reported by Adelina in lab.
[2022-08-14 13:56] VITALS: BP_SYST 128
--- NOTE | 2022-08-14 13:56 | NUR ---
Admit bed requested Patient will be admitted to care of . Admitted to Telemetry unit. Diagnosis Sepsis Inpatient (Yes or No) yes Observation (Yes or No) no Orientation concerns or request close to nursing station (Yes or No) no Covid Status negative On vent or bipap no Isolation requirements none Needs a sitter no From Home (Yes or if No enter name of facility) yes Requires Dialysis (Yes or No) no Med Rec Completed (Yes of No) yes
[2022-08-14] MEDS ORDERED: NACL 0.9% 1,000 ML IV ONE (14:00)
--- NOTE | 2022-08-14 15:10 | NUR ---
PATIENT HAS TEMPERATURE OF 100.3 TEMPORAL AND COMPLAINS OF HEADACHE 07/10 WILL GIVE PRN MEDICATION AND ENDORSE TO FLOOR NURSE FOR FOLLOW UP
[2022-08-14] MEDS: LORazepam 2 MG/ML VIAL IVP PRN (15:21)
[2022-08-14] MEDS: MORPHINE 2 MG/ML INJ. SYRINGE IVP PRN (15:23)
[2022-08-14] MEDS: ACETAMINOPHEN 325 MG TABLET PO PRN (15:24)
--- NOTE | 2022-08-14 15:52 | NUR ---
PT ADMITTED TO ROOM 119B. TRANSFERED PT VIA GURNEY. REPORT GIVEN TO MARGARITO GUITERREZ. MATT TO RESUME CARE.
[2022-08-14 16:02] VITALS: BP_SYST 110
--- NOTE | 2022-08-14 16:10 | NUR ---
RECEIVED PT LYING IN BED QUIETLY WITH EYES OPEN. PT DENIES ANY SOB. NOTED SKIN APPEARS FLUSHED. HOB ELEVATED SEMIFOWLER'S POSITION- PT O2 SAT 91%. O2 @ 2L NBP PLACED. PT EXHIBITS NO S/S ACUTE DISTRESS. PT ENCOURAGED TO USE CALL LIGHT NEEDED TO SUMMON ASS/T NEEDED. PT VERBALIZED UNDERSTANDING.
--- NOTE | 2022-08-14 16:16 | NUR ---
CONSULTATION PAGED REASON FOR CONSULTATION SEPSIS WAS CONSULT CALED?Y PERSON WHO WAS NOTIFIED:DEVAN CONSULTING PHYSICIAN:SHIVANI ERAZO MOTOR CHECKER SPECIALTY:INFECTIOUS DISEASE MOTOR CHECKER PHONE NUMBER:[phone] REQUESTING PHYSICIAN:MAMI LLOYD
[2022-08-14 16:18] VITALS: BP_SYST 110
[2022-08-14] MEDS ORDERED: FLU VACC QS2022-23(6MOS UP)/PF 0.5 ML/SYR SYRINGE I.M. PRN (16:30)
[2022-08-14] MEDS: ALBUTEROL SULFATE 0.083% 2.5 MG/3 ML VIAL.NEB INH SCH ×3 (17:02→23:30)
[2022-08-14] MEDS: VANCOMYCIN HCL 750 MG in NS 250 ML IV SCH (17:25)
[2022-08-14] MEDS: PIPERACILLIN/TAZO 3.375/DEX-IS 50 ML IV SCH (18:39)
[2022-08-14] MEDS: BUDESONIDE 0.5 MG/2 ML AMPUL.NEB INH SCH (19:53)
--- NOTE | 2022-08-14 20:05 | NUR ---
Opening notes Pt asleep, easily awakens, no fever. CAll light within reach. Bed low, locked, siderails up x2. Pt walked to the bathroom and voided. To monitor.
[2022-08-14 20:15] VITALS: BP_SYST 121
[2022-08-15] VITALS: BP_SYST 118
[2022-08-15] MEDS: PIPERACILLIN/TAZO 3.375/DEX-IS 50 ML IV SCH ×4 (00:08→17:56)
[2022-08-15] MEDS: MORPHINE 2 MG/ML INJ. SYRINGE IVP PRN ×2 (00:09→10:46)
[2022-08-15] MEDS: VANCOMYCIN HCL 750 MG in NS 250 ML IV SCH ×2 (03:57→14:25)
[2022-08-15] MEDS: ALBUTEROL SULFATE 0.083% 2.5 MG/3 ML VIAL.NEB INH SCH ×6 (04:28→23:42)
--- NOTE | 2022-08-15 06:45 | NUR ---
Closing notes Pt asleep, no s/s distress noted. No fever during the night. IV antibiotic administered at ordered rate L. FA clear and patent. Safety maintained. To endorse to AM nurse.
[2022-08-15] MEDS: BUDESONIDE 0.5 MG/2 ML AMPUL.NEB INH SCH ×2 (07:15→20:26)
--- NOTE | 2022-08-15 07:25 | NUR ---
OPENING NOTE PT IN BED, SLEEPING WITH EVEN AND NON-LABORED. NO S/S ACUTE DISTRESS, SOB OR CHEST PAIN. IV SITE REMAIN PATENT AND INTACT. NO S/S OF INFILTRATION OR INFECTION NOTED. BED IS LOCKED AND AT LOW POSITION. WILL CONTINUE TO MONITOR
[2022-08-15 07:33] LABS: CALCIUM 8.4 mg/dL (8.4-11.0); CREATININE 0.91 mg/dL (0.55-1.30)
[2022-08-15 07:53] LABS: BASOPHILS # (AUTO) 0.1 K/uL (0.0-0.2); BASOPHILS % (AUTO) 0.5 % (0.0-2.0); EOSINOPHILS # (AUTO) 0.1 K/uL (0.0-0.4); EOSINOPHILS % (AUTO) 0.4 % (0.0-4.0); LYMPHOCYTES # (AUTO) 0.7 K/uL (1.0-5.5); LYMPHOCYTES % (AUTO) 3.3 % (20.5-51.5); MEAN CORPUSCULAR HEMOGLOBIN 30 pg (27-31); MEAN CORPUSCULAR HGB CONC 33 % (32-36); MEAN CORPUSCULAR VOLUME 91 fL (79.0-98.0); MONOCYTES # (AUTO) 0.6 K/uL (0.0-1.0); MONOCYTES % (AUTO) 2.6 % (1.7-9.3); NEUTROPHILS # (AUTO) 21.2 K/uL (1.8-7.7); NEUTROPHILS % (AUTO) 93.2 % (40.0-70.0); PLATELET COUNT (AUTO) 273 K/uL (130-430); RED BLOOD CELL COUNT(AUTO) 4.32 MIL/uL (4.2-6.2); RED CELL DISTRIBUTION WIDTH 14.2 % (9.0-15.0); WHITE BLOOD COUNT (AUTO) 22.8 K/uL (4.8-10.8)
[2022-08-15 08:00] VITALS: BP_SYST 117
--- NOTE | 2022-08-15 10:00 | NUR ---
NOTES; PT REFUSES DO ANYTHING UNLESS SHE GETS ICE TEA WITH SOME SUGAR. PROVIDED IT PT REQUESTS. SHE LET NURSE TO TAKE HER VITALS.
--- NOTE | 2022-08-15 11:06 | NUR ---
PAGED PAGED PAGED AT [phone] SPOKE WITH EXCHANGE.
--- NOTE | 2022-08-15 11:30 | NUR ---
NOTES; PT REQUEST FOR SOMETHING FOR STOMACH. SPOKE WITH DR. THOMPSON, RECEIVED NEW ORDER.
[2022-08-15 12:00] VITALS: BP_SYST 122
[2022-08-15] MEDS ORDERED: PANTOPRAZOLE SODIUM 40 MG/VIAL (PROTONIX) IVP ONE (13:00)
[2022-08-15] MEDS: ACETAMINOPHEN 325 MG TABLET PO PRN ×2 (14:25→21:36)
--- NOTE | 2022-08-15 14:30 | NUR ---
ACCOUNTS SPECIALIST ACSW Kimberlee attempted to meet with patient for Social Service support, patient stated "why are you asking all these questions" and declined contact. Credit Underwriter will continue to be available as needed
--- NOTE | 2022-08-15 15:00 | NUR ---
NOTES HAD FEVER (103.5) ADMINISTERED MED ORDERED. DROPPED DOWN TO 99.8.
[2022-08-15 16:00] VITALS: BP_SYST 118
--- NOTE | 2022-08-15 17:00 | NUR ---
SPOKE WITH DR. ARGUETA; REGARDING POSITIVE BLOOD CULTURE-GRAM NEG AILYN. ID MADE AWARE. CONTINUE TO WITH CURRENT IV ANTIBIOTICS
[2022-08-15 18:55] LABS: BILIRUBIN,URINE NEGATIVE (NEGATIVE); BLOOD, URINE 1+ (NEGATIVE); CLARITY/URINE CLEAR (CLEAR); COLOR,URINE YELLOW (YELLOW); GLUCOSE,URINE NEGATIVE (NEGATIVE); KETONES,URINE NEGATIVE (NEGATIVE); LEUKOCYTE ESTERASE ,URINE TRACE (NEGATIVE); NITRITE, URINE NEGATIVE (NEGATIVE); PROTEIN URINE TRACE (NEGATIVE); UROBILINOGEN,URINE 0.2 (0.2-1.0)
--- NOTE | 2022-08-15 19:00 | NUR ---
CLOSING NOTE PT IN BED,SLEEPING. IV RUNNING ORDERED WITH SITE KEPT PATENT AND INTACT. NO S/S OF INFILTRATION OR INFECTION NOTED. NO S/S OF ACUTE DISTRESS, PAIN , OR SOB. BED IS LOCKED AND AT LOW POSITION. CALL LIGHT WITHIN REACH. ENDORSE CARE
[2022-08-15 19:14] LABS: BACTERIA,URINE RARE /HPF (None Seen); RBC,URINE 0-3 /HPF (0-3)
[2022-08-15 20:00] VITALS: BP_SYST 99
[2022-08-15] MEDS: LORazepam 2 MG/ML VIAL IVP PRN (21:43)
[2022-08-16] VITALS: BP_SYST 110
[2022-08-16] MEDS: PIPERACILLIN/TAZO 3.375/DEX-IS 50 ML IV SCH ×4 (00:17→17:08)
[2022-08-16] MEDS: ALBUTEROL SULFATE 0.083% 2.5 MG/3 ML VIAL.NEB INH SCH ×6 (03:00→23:00)
[2022-08-16] MEDS: VANCOMYCIN HCL 750 MG in NS 250 ML IV SCH (03:30)
[2022-08-16 06:49] LABS: BASOPHILS % (AUTO) 0.4 % (0.0-2.0); EOSINOPHILS % (AUTO) 0.4 % (0.0-4.0); HEMATOCRIT 38.7 % (36-48); HEMOGLOBIN 13.2 g/dL (12.0-16.0); LYMPHOCYTES # (AUTO) 0.4 K/uL (1.0-5.5); LYMPHOCYTES % (AUTO) 4.1 % (20.5-51.5); MEAN CORPUSCULAR HEMOGLOBIN 30 pg (27-31); MEAN CORPUSCULAR HGB CONC 34 % (32-36); MEAN CORPUSCULAR VOLUME 89 fL (79.0-98.0); MONOCYTES # (AUTO) 0.4 K/uL (0.0-1.0); MONOCYTES % (AUTO) 4.4 % (1.7-9.3); NEUTROPHILS # (AUTO) 8.7 K/uL (1.8-7.7); NEUTROPHILS % (AUTO) 90.7 % (40.0-70.0); PLATELET COUNT (AUTO) 210 K/uL (130-430); RED BLOOD CELL COUNT(AUTO) 4.33 MIL/uL (4.2-6.2); RED CELL DISTRIBUTION WIDTH 13.6 % (9.0-15.0); WHITE BLOOD COUNT (AUTO) 9.6 K/uL (4.8-10.8)
[2022-08-16 07:05] LABS: BILIRUBIN,URINE NEGATIVE (NEGATIVE); BLOOD, URINE 2+ (NEGATIVE); CLARITY/URINE CLEAR (CLEAR); COLOR,URINE YELLOW (YELLOW); GLUCOSE,URINE NEGATIVE (NEGATIVE); KETONES,URINE NEGATIVE (NEGATIVE); LEUKOCYTE ESTERASE ,URINE NEGATIVE (NEGATIVE); NITRITE, URINE NEGATIVE (NEGATIVE); PROTEIN URINE TRACE (NEGATIVE)
--- NOTE | 2022-08-16 07:10 | NUR ---
OPENING NOTE PT IN BED, SLEEPING WITH NON-LABORED AND REGULAR BREATHING. NO S/S OF ACUTE DISTRESS, SOB, OR PAIN. IV SITE REMAIN INTACT. BED IS LOCKED AND AT LOW POSITION. CALL LIGHT WITHIN REACH. WILL CONTINUE TO MONITOR.
[2022-08-16 07:35] LABS: BACTERIA,URINE RARE /HPF (None Seen); MUCUS,URINE 1+ /LPF (None Seen)
[2022-08-16 08:00] VITALS: BP_SYST 146
[2022-08-16] MEDS: PANTOPRAZOLE SODIUM 40 MG TAB PO SCH (08:07)
[2022-08-16] MEDS: MORPHINE 2 MG/ML INJ. SYRINGE IVP PRN ×3 (08:08→21:46)
[2022-08-16 08:11] LABS: CALCIUM 8.2 mg/dL (8.4-11.0); CREATININE 0.72 mg/dL (0.55-1.30)
[2022-08-16] MEDS: BUDESONIDE 0.5 MG/2 ML AMPUL.NEB INH SCH ×2 (08:25→19:00)
--- NOTE | 2022-08-16 09:20 | NUR ---
K=3.1, K 40MEQ GIVEN ORDERED.
--- NOTE | 2022-08-16 10:00 | NUR ---
NOTES; PT REFUSED TO CHANGE BED SHEET AND CLEAN GOWN. PT REFUSED SHAMPOO. PT VERBALIZES "IT IS TOO COLD, COVER ME." MET PATIENT'S NEED AT THIS TIME. WILL CONTINUE TO MONITOR.
[2022-08-16] MEDS: ACETAMINOPHEN 325 MG TABLET PO PRN ×2 (11:50→21:46)
--- NOTE | 2022-08-16 11:50 | NUR ---
LOW GRADE FEVER 100.6, ADMIN TYLENOL 325MG ORDERED. WILL CONTINUE TO MONITOR
[2022-08-16 12:00] VITALS: BP_SYST 125
--- NOTE | 2022-08-16 12:50 | NUR ---
NO MORE FEVER; 99.1 TEMPORAL.
--- NOTE | 2022-08-16 13:39 | NUR ---
[employer] PUBLIC WORKS MANAGER went to meet pt. but pt. was angry and aggressive. PUBLIC WORKS MANAGER left some homeless and substance abuse resources on her desk.
--- NOTE | 2022-08-16 15:00 | NUR ---
NOTES; PT PEED ON FLOOR BECAUSE SHE DOES NOT WANT TO GO TO BATHROOM. PROVIDED BSC ON BEDSIDE.
[2022-08-16 16:00] VITALS: BP_SYST 120
--- NOTE | 2022-08-16 16:12 | NUR ---
Dietitian Recommendations * Continue regular diet * Recommend Ensure BID * Consider daily MVI Please refer to nutrition assessment for details, thanks! CC, MPH, RDN
--- NOTE | 2022-08-16 17:00 | NUR ---
NOTES; PT SLEEPING WITH BLANKETS OVER HER HEAD. NO S/S ACUTE DISTRESS, SOB, OR CHEST PAIN NOTED. IV REMAIN TKO MODE. SITE REMAIN INTACT AND PATENT. BED IS LOCKED AND AT LOW POSITION. ENCOURAGED PT TO USE CALL LIGHT FOR ASSISTANCE. WILL CONTINUE TO MONITOR.
--- NOTE | 2022-08-16 18:41 | NUR ---
CLOSING NOTE PT IN BED, SLEEPING WITH NON-LABORED AND EVEN BREATHING. NO S/S ACUTE DISTRESS NOTED. IV SITE REMAIN INTACT AND PATENT. NO S/S OF INFILTRATION OR INFECTION. REQUESTED FOR A PITCHER OF ICE TEA. MET HER NEEDS. BED IS LOCKED AND AT LOWEST POSITION. SAFETY PRECAUTION IN PLACED. WILL ENDORSE CARE TO WIRE FRAME DIPPER NURSE.
[2022-08-16 20:00] VITALS: BP_SYST 118
[2022-08-17] VITALS: BP_SYST 103
[2022-08-17] MEDS: PIPERACILLIN/TAZO 3.375/DEX-IS 50 ML IV SCH ×4 (00:41→17:31)
[2022-08-17] MEDS: ALBUTEROL SULFATE 0.083% 2.5 MG/3 ML VIAL.NEB INH SCH ×6 (02:59→23:00)
[2022-08-17] MEDS: MORPHINE 2 MG/ML INJ. SYRINGE IVP PRN ×4 (03:34→17:31)
[2022-08-17] MEDS: BUDESONIDE 0.5 MG/2 ML AMPUL.NEB INH SCH ×2 (07:00→19:00)
--- NOTE | 2022-08-17 07:00 | NUR ---
opening receive sbar from night nurse, patient in bed, respiration are deep o2 in 2 L NC, bed in low and lock position, call light within reach
[2022-08-17 07:07] LABS: BASOPHILS % (AUTO) 0.2 % (0.0-2.0); EOSINOPHILS # (AUTO) 0.1 K/uL (0.0-0.4); EOSINOPHILS % (AUTO) 1.7 % (0.0-4.0); HEMATOCRIT 40.1 % (36-48); HEMOGLOBIN 13.6 g/dL (12.0-16.0); LYMPHOCYTES # (AUTO) 0.6 K/uL (1.0-5.5); LYMPHOCYTES % (AUTO) 8.7 % (20.5-51.5); MEAN CORPUSCULAR HEMOGLOBIN 30 pg (27-31); MEAN CORPUSCULAR HGB CONC 34 % (32-36); MEAN CORPUSCULAR VOLUME 90 fL (79.0-98.0); MONOCYTES # (AUTO) 0.5 K/uL (0.0-1.0); MONOCYTES % (AUTO) 6.9 % (1.7-9.3); PLATELET COUNT (AUTO) 191 K/uL (130-430); RED BLOOD CELL COUNT(AUTO) 4.48 MIL/uL (4.2-6.2); RED CELL DISTRIBUTION WIDTH 13.6 % (9.0-15.0); WHITE BLOOD COUNT (AUTO) 7.3 K/uL (4.8-10.8)
[2022-08-17 07:19] LABS: CREATININE 0.93 mg/dL (0.55-1.30)
[2022-08-17 08:00] VITALS: BP_SYST 104
[2022-08-17] MEDS: PANTOPRAZOLE SODIUM 40 MG TAB PO SCH (08:24)
[2022-08-17] MEDS: ACETAMINOPHEN 325 MG TABLET PO PRN ×2 (08:36→17:30)
[2022-08-17 09:24] LABS: NEUTROPHILS % (AUTO) 82.5 % (40.0-70.0)
--- NOTE | 2022-08-17 13:50 | NUR ---
nurse notes/non compliant patient was off the telly monitor because she threw the telly box across the room. explained and educated to the patient the need for the telly monitor, and answered questions. reconnected telly box
--- NOTE | 2022-08-17 13:54 | NUR ---
HEADACHE, PATIENT COMPLAINING OF HEADACHE AND REQUESTS TO MOVE TO A BED DUE TO LIGHT FROM WINDOW IS HURTING HER EYES. ADVISED PATIENT THAT A BED IS ALLOCATED TO ANOTHER INCOMING PATIENT AND THAT IT IS NOT POSSIBLE TO CHANGE BEDS. OFFERED PATIENT COMPRESS AND MASK TO BLOCK LIGHT, PATIENT REFUSED AND BECAME AGITATED. PATIENT STATED FOR ME TO LEAVE THE ROOM
[2022-08-17 15:17] VITALS: BP_SYST 118
[2022-08-17] MEDS: LORazepam 2 MG/ML VIAL IVP PRN (15:29)
--- NOTE | 2022-08-17 16:59 | NUR ---
nurse notes/ pt patient refuse pt today.
[2022-08-17 17:12] VITALS: BP_SYST 116
--- NOTE | 2022-08-17 17:14 | NUR ---
FEVER INFORMED BY AUTOMOTIVE UPHOLSTERER PATIENT IS RUNNING A FEVER 102.
--- NOTE | 2022-08-17 17:20 | NUR ---
PATIENT REFUSED PHYSICAL THERAPY EVAL AND TX TODAY. STATES 'SHE'S NOT UP TO IT TODAY AND WILL TRY TOMORROW'
--- NOTE | 2022-08-17 17:29 | NUR ---
PAGED DR CASE REGARDING FEVER. SPOKE WITH NELSON AT THE EXCHANGE.
[2022-08-17 17:32] VITALS: BP_SYST 134
--- NOTE | 2022-08-17 17:57 | NUR ---
INFORMED DR CASE (ON THE FLOOR) OF FEVER. NO NEW ORDERS
--- NOTE | 2022-08-17 18:19 | NUR ---
tely box pt keeps removing tely box, reeducate the patient on the importance of keeping it. reconnected the patient again
--- NOTE | 2022-08-17 19:15 | NUR ---
closing, provided sbar to night nurse, patient in bed awake watching tv, respirations are non labored, no complaints of discomfort, bed in low an lock position, call light within reach
[2022-08-17 20:42] VITALS: BP_SYST 92
[2022-08-18] VITALS: BP_SYST 108
[2022-08-18] MEDS: MORPHINE 2 MG/ML INJ. SYRINGE IVP PRN (02:18)
[2022-08-18] MEDS: ACETAMINOPHEN 325 MG TABLET PO PRN (02:19)
[2022-08-18] MEDS: ALBUTEROL SULFATE 0.083% 2.5 MG/3 ML VIAL.NEB INH SCH ×4 (02:38→15:56)
[2022-08-18 06:59] LABS: BASOPHILS % (AUTO) 0.4 % (0.0-2.0); EOSINOPHILS # (AUTO) 0.2 K/uL (0.0-0.4); EOSINOPHILS % (AUTO) 2.9 % (0.0-4.0); HEMATOCRIT 37.8 % (36-48); HEMOGLOBIN 12.8 g/dL (12.0-16.0); LYMPHOCYTES # (AUTO) 0.9 K/uL (1.0-5.5); LYMPHOCYTES % (AUTO) 12.5 % (20.5-51.5); MEAN CORPUSCULAR HEMOGLOBIN 30 pg (27-31); MEAN CORPUSCULAR HGB CONC 34 % (32-36); MEAN CORPUSCULAR VOLUME 88 fL (79.0-98.0); MONOCYTES # (AUTO) 0.8 K/uL (0.0-1.0); MONOCYTES % (AUTO) 11.7 % (1.7-9.3); NEUTROPHILS # (AUTO) 5.1 K/uL (1.8-7.7); NEUTROPHILS % (AUTO) 72.5 % (40.0-70.0); PLATELET COUNT (AUTO) 179 K/uL (130-430); RED BLOOD CELL COUNT(AUTO) 4.31 MIL/uL (4.2-6.2); RED CELL DISTRIBUTION WIDTH 13.7 % (9.0-15.0)
[2022-08-18] MEDS: BUDESONIDE 0.5 MG/2 ML AMPUL.NEB INH SCH (07:28)
[2022-08-18 07:31] LABS: CALCIUM 8.3 mg/dL (8.4-11.0); CREATININE 0.66 mg/dL (0.55-1.30)
[2022-08-18] MEDS ORDERED: NALOXONE HCL 0.4 MG/ML AMP (NARCAN) IVP PRN (09:30)
[2022-08-18] MEDS ORDERED: POLYETHYLENE GLYCOL 3350, 17 GM/ POWD.PACK PO ONE (09:30)
[2022-08-18] MEDS ORDERED: HYDROcodone/ACETAMIN 5-325 MG TAB (NORCO/ VICODIN) PO PRN (09:30)
[2022-08-18] MEDS: PANTOPRAZOLE SODIUM 40 MG TAB PO SCH (10:59)
[2022-08-18 11:12] VITALS: BP_SYST 96
[2022-08-18 15:40] VITALS: BP_SYST 108
[2022-08-18] MEDS ORDERED: LEVO-62 PO (18:33)
--- NOTE | 2022-08-18 19:00 | NUR ---
End of shift summary: Patient spent the day concerned about being discharged. Patient did request pain Meds throughout the day and after 1700, patient indicated that she wanted to leave because of person home matters. RN called attending MD, got orders for patient to be discharged and discussed with patient basic issues prior to her leaving. Patient took all of her belongings in clear plastic bag and left the premises escorted to lobby by SALES PROGRAM COORDINATOR in wheelchair. Patient indicated all needs have rochelle met upon her leaving and patient showed no signs or symptoms of acute discomfort or distress upon leaving.
[2022-08-18 20:33] VITALS: BP_SYST 138
[2022-08-19] MEDS ORDERED: POLYETHYLENE GLYCOL 3350, 17 GM/ POWD.PACK PO SCH (09:00)
== END 2022-08-18 18:33 | disposition home or self-care (01) | DRG 720 ==
LOC: SED 11:12 → STU 13:10
PROVIDERS: ADMIT Family Medicine; ATTEND Family Medicine
DX: A41.9 Sepsis, unspecified organism (principal); J96.01 Acute respiratory failure with hypoxia; E46 Unspecified protein-calorie malnutrition; K21.9 Gastro-esophageal reflux disease without esophagitis; M47.816 Spondylosis without myelopathy or radiculopathy, lumbar region; Z20.822 Contact with and (suspected) exposure to COVID-19; J18.9 Pneumonia, unspecified organism; J44.0 Chronic obstructive pulmonary disease with (acute) lower respiratory infection; J44.1 Chronic obstructive pulmonary disease with (acute) exacerbation; Z88.8 Allergy status to other drugs, medicaments and biological substances; Z88.1 Allergy status to other antibiotic agents; Z91.041 Radiographic dye allergy status; Z79.899 Other long term (current) drug therapy; Z91.14 Patient's other noncompliance with medication regimen; Z68.1 Body mass index [BMI] 19.9 or less, adult
CPT/HCPCS: 36415; 71045; 80048; 80053; 81000; 83605; 83735; 84703; 85007; 85025; 85027; 87040; 87081; 94640; 94760; 96361; 96374; 96375; 99285; C9113; G0378; J0696; J2060; J2270; J2405; J2543; J7030; J7040; J7050; J7060; J7613; J7626

== ENCOUNTER 2023-02-09 20:04 | Emergency (ER) | payer MEDICAID ==
[~2023-02-09] VITALS: Ht 167.6 cm; Wt 47.2 kg
[~2023-02-09 20:04] MED LIST changes: +BUDE6HFA INH; +LEVO-62 PO; -LORA10TA7 PO; -PRED10TA PO; +PRED20TA PO
[2023-02-09 20:05] VITALS: BP_SYST 114
[2023-02-09] MEDS ORDERED: IPRATROPIUM/ALBUTEROL SULFATE 3 ML AMPUL.NEB (DUONEB) INH ONE ×2 (20:45→22:30)
[2023-02-09] MEDS ORDERED: predniSONE 20 MG TABLET PO ONE (20:45)
[2023-02-09] MEDS ORDERED: ALBMDI INH (23:45)
[2023-02-09] MEDS ORDERED: PRED20TA PO (23:45)
[2023-02-09] MEDS ORDERED: BUDE6.9H INH (23:45)
[2023-02-10 00:17] VITALS: BP_SYST 114
== END 2023-02-10 00:21 | disposition home or self-care (01) ==
LOC: SED 20:04
DX: J45.901 Unspecified asthma with (acute) exacerbation (principal); R06.02 Shortness of breath; R05.9 Cough, unspecified; K21.9 Gastro-esophageal reflux disease without esophagitis; Z88.1 Allergy status to other antibiotic agents; Z91.041 Radiographic dye allergy status; Z79.899 Other long term (current) drug therapy
CPT/HCPCS: 99283; 94760; J7512

== ENCOUNTER 2023-02-26 06:09 | Emergency (ER) | payer MEDICAID ==
[2023-02-26 06:22] VITALS: BP_SYST 135
[2023-02-26] MEDS ORDERED: KETOROLAC TROMETHAMINE 60 MG/2 ML VIAL IM ONE (06:30)
[2023-02-26] MEDS ORDERED: LORazepam 2 MG/ML VIAL IM ONE (06:30)
[2023-02-26 07:58] VITALS: BP_SYST 130
== END 2023-02-26 07:56 | disposition home or self-care (01) ==
LOC: SED 06:09
DX: G44.209 Tension-type headache, unspecified, not intractable (principal); F41.9 Anxiety disorder, unspecified; J45.909 Unspecified asthma, uncomplicated; K21.9 Gastro-esophageal reflux disease without esophagitis; Z88.4 Allergy status to anesthetic agent; Z91.041 Radiographic dye allergy status; Z79.899 Other long term (current) drug therapy
CPT/HCPCS: 99284; 96372; J1885; J2060

== ENCOUNTER 2023-04-26 07:02 | Emergency (ER) | payer MEDICAID ==
[~2023-04-26] VITALS: Ht 165.1 cm; Wt 40.8 kg
[2023-04-26 07:02] VITALS: BP_SYST 116; PULSE 67; RESP 18; TEMP 97.8; O2SAT 95
[2023-04-26] MEDS ORDERED: IPRATROPIUM/ALBUTEROL SULFATE 3 ML AMPUL.NEB (DUONEB) INH ONE (07:15)
[2023-04-26] MEDS ORDERED: predniSONE 20 MG TABLET PO ONE (07:15)
[2023-04-26] MEDS ORDERED: OMEPRAZOLE Non-Formulary 20 MG CAPSULE.DR PO ONE (07:15)
[2023-04-26] MEDS ORDERED: PANTOPRAZOLE SODIUM 40 MG TAB PO ONE ×2 (07:55→08:00)
[2023-04-26] MEDS ORDERED: ALBU90AE INH (08:40)
[2023-04-26] MEDS ORDERED: PRED20TA PO (08:40)
[2023-04-26] MEDS ORDERED: BUDE6HFA INH (08:48)
[2023-04-26] MEDS ORDERED: IPRA4AER INH (08:48)
[2023-04-26] MEDS ORDERED: LORA10TA7 PO (08:48)
[2023-04-26 09:03] VITALS: BP_SYST 116; PULSE 67; RESP 18; TEMP 97.8
[2023-04-26 09:09] VITALS: O2SAT 84
== END 2023-04-26 09:03 | disposition home or self-care (01) ==
LOC: SED 07:02
DX: J45.901 Unspecified asthma with (acute) exacerbation (principal); R06.02 Shortness of breath; R05.9 Cough, unspecified; R09.81 Nasal congestion; K21.9 Gastro-esophageal reflux disease without esophagitis; Z88.1 Allergy status to other antibiotic agents; Z88.4 Allergy status to anesthetic agent; Z91.041 Radiographic dye allergy status; Z91.09 Other allergy status, other than to drugs and biological substances; Z72.0 Tobacco use; Z79.899 Other long term (current) drug therapy
CPT/HCPCS: 99283; 71045; 94640; J7512

== ENCOUNTER 2023-06-10 16:47 | Inpatient (IN) | payer MEDICAID ==
[~2023-06-10] VITALS: Ht 170.2 cm; Wt 47.6 kg
[2023-06-10 16:47] VITALS: BP_SYST 129; PULSE 100; RESP 20; TEMP 97.9; O2SAT 91
[~2023-06-10 16:47] MED LIST changes: +ALBU90AE INH; +LORA10TA7 PO
[2023-06-10] MEDS ORDERED: DEXAMETHASONE SOD PHOSPHATE 10 MG/ML VIAL IVP ONE (17:30)
[2023-06-10] MEDS ORDERED: guaiFENesin/DEXTROMETHORPHAN 10 ML UDC PO ONE (17:30)
[2023-06-10] MEDS ORDERED: NACL 0.9% 1,000 ML IV ONE (17:30)
[2023-06-10] MEDS ORDERED: IPRATROPIUM/ALBUTEROL SULFATE 3 ML AMPUL.NEB (DUONEB) INH ONE ×2 (17:30→21:00)
[2023-06-10 17:59] LABS: ABG O2 SAT% ESTIMATE 91.4 % (94.0-100.0); BLOOD GAS BASE EXCESS 3.6 mmol/L (-3.0-3.0); BLOOD GAS HCO3 29.1 mmol/L (21.0-27.0); BLOOD GAS PO2 60.9 mmHg (75.0-100.0)
[2023-06-10 18:41] LABS: BASOPHILS % (AUTO) 0.3 % (0.0-2.0); EOSINOPHILS # (AUTO) 1.4 K/uL (0.0-0.4); EOSINOPHILS % (AUTO) 16.1 % (0.0-4.0); HEMATOCRIT 46.8 % (36-48); LYMPHOCYTES # (AUTO) 1.7 K/uL (1.0-5.5); LYMPHOCYTES % (AUTO) 19.5 % (20.5-51.5); MEAN CORPUSCULAR HEMOGLOBIN 29 pg (27-31); MEAN CORPUSCULAR HGB CONC 32 % (32-36); MEAN CORPUSCULAR VOLUME 91 fL (79.0-98.0); MONOCYTES # (AUTO) 0.6 K/uL (0.0-1.0); MONOCYTES % (AUTO) 6.5 % (1.7-9.3); NEUTROPHILS # (AUTO) 5.2 K/uL (1.8-7.7); NEUTROPHILS % (AUTO) 57.6 % (40.0-70.0); PLATELET COUNT (AUTO) 340 K/uL (130-430); RED BLOOD CELL COUNT(AUTO) 5.18 MIL/uL (4.2-6.2); RED CELL DISTRIBUTION WIDTH 14.7 % (9.0-15.0)
[2023-06-10 18:44] LABS: ALANINE AMINOTRANSFERASE 15 U/L (12-78); ALBUMIN 3.3 g/dL (3.4-4.8); ANION GAP 4 (5-15); ASPARTATE AMINOTRANSFERASE 21 U/L (10-37); CALCIUM 8.9 mg/dL (8.4-11.0); CARBON DIOXIDE 34 mmol/L (23-29); CHLORIDE 99 mmol/L (98-107); CREATININE 0.58 mg/dL (0.55-1.30); GFR AFRICAN AMERICAN 139 mL/min (>90); GFR NON AFRICAN-AMERICAN 115 mL/min (>90); GLUCOSE 90 mg/dL (74-106); POTASSIUM 4.2 mmol/L (3.5-5.1); SODIUM SERUM 137 mmol/L (136-145); TOTAL BILIRUBIN 0.1 mg/dL (0.0-1.0); UREA NITROGEN, BLOOD 14 mg/dL (8-21)
[2023-06-10 21:06] VITALS: O2SAT 97
[2023-06-10 21:15] LABS: BILIRUBIN,URINE NEGATIVE (NEGATIVE); BLOOD, URINE 1+ (NEGATIVE); CLARITY/URINE Slightly Cloudy (CLEAR); COLOR,URINE Light yellow (YELLOW); GLUCOSE,URINE NEGATIVE (NEGATIVE); KETONES,URINE NEGATIVE (NEGATIVE); LEUKOCYTE ESTERASE ,URINE 3+ (NEGATIVE); NITRITE, URINE POSITIVE (NEGATIVE); PH,URINE 6.5 (5.0-8.0); PROTEIN URINE NEGATIVE (NEGATIVE); UROBILINOGEN,URINE 0.2 (0.2-1.0)
[2023-06-10 21:22] LABS: BACTERIA,URINE MANY /HPF (None Seen); WBC,URINE 20-50 /HPF (0-3)
[2023-06-10 21:23] LABS: MUCUS,URINE 2+ /LPF (None Seen)
[2023-06-10] MEDS ORDERED: cefTRIAXone 1 GM IVPB PREMIX 50 ML IV ONE (21:30)
[2023-06-10] MEDS ORDERED: NALOXONE HCL 0.4 MG/ML AMP (NARCAN) IVP PRN (23:45)
[2023-06-10] MEDS ORDERED: HYDROcodone/ACETAMIN 5-325 MG TAB (NORCO/ VICODIN) PO PRN (23:45)
[2023-06-10] MEDS ORDERED: IPRATROPIUM/ALBUTEROL SULFATE 3 ML AMPUL.NEB (DUONEB) INH PRN (23:45)
[2023-06-10] MEDS ORDERED: LORazepam 1 MG TABLET PO PRN (23:45)
[2023-06-10] MEDS ORDERED: FAMOTIDINE 20 MG TABLET PO ONE (23:45)
[2023-06-11] MEDS: PIPERACILLIN/TAZO 3.375/DEX-IS 50 ML IV SCH ×2 (00:37→06:11)
[2023-06-11] MEDS: predniSONE 20 MG TABLET PO SCH ×2 (00:37→09:25)
[2023-06-11 00:39] LABS: BARBITURATE, URINE NEGATIVE (NEG <=200); BENZODIAZEPINE, URINE NEGATIVE (NEG <=150); CANNABINOID, URINE NEGATIVE (NEG <=50); COCAINE, URINE NEGATIVE (NEG <=150); METHAMPHETAMINES SCREEN,URINE POSITIVE (NEG <=500); OPIATE, URINE NEGATIVE (NEG <=100); PHENCYCLIDINE SCREEN,URINE NEGATIVE (NEG <=25); URINE AMPHETAMINE POSITIVE (NEG <=500); URINE METHADONE NEGATIVE (NEG <=200); URINE OXYCODONE SCREEN NEGATIVE (NEG <=100); URINE PROPOXYPHENE SCREEN NEGATIVE (NEG <=300)
[2023-06-11 00:40] LABS: UR TRICYCLIC ANTIDEPRESSANTS NEGATIVE (NEG <=300)
[2023-06-11] MEDS ORDERED: PIPERACILLIN/TAZOBACTAM 3.375 GM/VIAL (ZOSYN) IV ONE ×2 (01:10→06:11)
[2023-06-11 02:22] VITALS: BP_SYST 116; PULSE 85; O2SAT 94
[2023-06-11 08:57] VITALS: O2SAT 99
[2023-06-11] MEDS ORDERED: IPRATROPIUM/ALBUTEROL SULFATE 3 ML AMPUL.NEB (DUONEB) INH SCH (09:00)
[2023-06-11] MEDS ORDERED: FAMOTIDINE 20 MG TABLET PO SCH (09:00)
[2023-06-11] MEDS ORDERED: BUDESONIDE/FORMOTEROL 160-4.5 mCg, 6 GM INHALER INH SCH (09:00)
[2023-06-11 10:09] VITALS: BP_SYST 134; PULSE 82; RESP 20; TEMP 97.8; O2SAT 99
[2023-06-11] MEDS ORDERED: cefTRIAXone 1 GM IVPB PREMIX 50 ML IV SCH (11:00)
[2023-06-11] MEDS ORDERED: PIPERACILLIN/TAZO 3.375/DEX-IS 50 ML IV SCH (12:00)
[2023-06-11] MEDS ORDERED: AZITHROMYCIN 500 MG in NS 250 ML IV SCH (12:00)
== END 2023-06-11 10:08 | disposition left against medical advice (07) | DRG 140 ==
LOC: SED 16:47 → STU 23:01
PROVIDERS: ADMIT Internal Medicine; ATTEND Internal Medicine
DX: J44.1 Chronic obstructive pulmonary disease with (acute) exacerbation (principal); J96.00 Acute respiratory failure, unspecified whether with hypoxia or hypercapnia; R64 Cachexia; N39.0 Urinary tract infection, site not specified; F15.10 Other stimulant abuse, uncomplicated; F17.210 Nicotine dependence, cigarettes, uncomplicated; Z53.29 Procedure and treatment not carried out because of patient's decision for other reasons; F41.9 Anxiety disorder, unspecified; J20.9 Acute bronchitis, unspecified; Z88.8 Allergy status to other drugs, medicaments and biological substances; Z91.041 Radiographic dye allergy status; Z79.899 Other long term (current) drug therapy; Z68.1 Body mass index [BMI] 19.9 or less, adult; M24.412 Recurrent dislocation, left shoulder
CPT/HCPCS: 36415; 71045; 80053; 80307; 81000; 81003; 82803; 83605; 83880; 84484; 85025; 85610-TC; 85730-TC; 87040; 87086; 93005; 94640; 94760; 96360; 99285; G0378; J0456; J0696; J1100; J2543; J7050; J7512

== ENCOUNTER 2023-10-26 11:40 | Emergency (ER) | payer MEDICAID ==
[~2023-10-26] VITALS: Ht 167.6 cm; Wt 43.1 kg
[2023-10-26 11:50] VITALS: BP_SYST 128; PULSE 124; RESP 19; TEMP 98.3; O2SAT 92
[2023-10-26] MEDS ORDERED: IPRA4AER INH (13:21)
[2023-10-26] MEDS ORDERED: METH-776 PO (13:21)
[2023-10-26] MEDS ORDERED: ALBMDI INH (13:21)
[2023-10-26] MEDS ORDERED: MOME13HF12 INH (13:21)
[2023-10-26 13:41] VITALS: BP_SYST 128; PULSE 124; RESP 19; TEMP 98.3; O2SAT 92
== END 2023-10-26 13:39 | disposition home or self-care (01) ==
LOC: SED 11:40
DX: Z76.0 Encounter for issue of repeat prescription (principal); J44.9 Chronic obstructive pulmonary disease, unspecified; K21.9 Gastro-esophageal reflux disease without esophagitis; Z88.1 Allergy status to other antibiotic agents; Z91.041 Radiographic dye allergy status; Z79.899 Other long term (current) drug therapy
CPT/HCPCS: 99281

== ENCOUNTER 2024-04-05 19:43 | Emergency (ER) | payer MEDICAID ==
[~2024-04-05] VITALS: Ht 167.6 cm; Wt 46.3 kg
[~2024-04-05 19:43] MED LIST changes: -ALBMDI INH; -ALBU8.5H8 INH; -ALBU90AE INH; -BUDE6.9H INH; -LORA10TA7 PO; +MOME13HF12 INH; +OMEP40CA20 PO
[2024-04-05 20:07] VITALS: BP_SYST 142; PULSE 112; RESP 18; TEMP 98.7; O2SAT 93
[2024-04-05] MEDS: predniSONE 20 MG TABLET PO ONE (20:57)
[2024-04-05] MEDS: IPRATROPIUM/ALBUTEROL SULFATE 3 ML AMPUL.NEB (DUONEB) INH ONE (21:00)
[2024-04-05 22:54] LABS: BASOPHILS % (AUTO) 0.2 % (0.0-2.0); HEMATOCRIT 41.5 % (36-48); HEMOGLOBIN 13.8 g/dL (12.0-16.0); LYMPHOCYTES # (AUTO) 1.6 K/uL (1.0-5.5); MEAN CORPUSCULAR HEMOGLOBIN 30 pg (27-31); MEAN CORPUSCULAR HGB CONC 33 % (32-36); MEAN CORPUSCULAR VOLUME 91 fL (79.0-98.0); MONOCYTES # (AUTO) 0.8 K/uL (0.0-1.0); MONOCYTES % (AUTO) 4.7 % (1.7-9.3); NEUTROPHILS # (AUTO) 13.6 K/uL (1.8-7.7); NEUTROPHILS % (AUTO) 85.1 % (40.0-70.0); PLATELET COUNT (AUTO) 372 K/uL (130-430); RED BLOOD CELL COUNT(AUTO) 4.55 MIL/uL (4.2-6.2); RED CELL DISTRIBUTION WIDTH 13.2 % (9.0-15.0)
[2024-04-05 23:09] LABS: PROTHROMBIN TIME 10.3 SECS (9.5-12.5)
[2024-04-05 23:10] LABS: ALBUMIN 3.1 g/dL (3.4-4.8); CALCIUM 8.7 mg/dL (8.4-11.0); POTASSIUM 4.1 mmol/L (3.5-5.1); SODIUM SERUM 141 mmol/L (136-145); TOTAL BILIRUBIN 0.1 mg/dL (0.0-1.0); UREA NITROGEN, BLOOD 26 mg/dL (8-21)
[2024-04-05 23:28] LABS: ALANINE AMINOTRANSFERASE 35 U/L (12-78); ANION GAP 5 (5-15); ASPARTATE AMINOTRANSFERASE 19 U/L (10-37); CARBON DIOXIDE 34 mmol/L (23-29); CHLORIDE 102 mmol/L (98-107); CREATININE 0.63 mg/dL (0.55-1.30); GFR AFRICAN AMERICAN 126 mL/min (>90); GFR NON AFRICAN-AMERICAN 104 mL/min (>90); GLUCOSE 137 mg/dL (74-106); TOTAL PROTEIN, SERUM 6.8 g/dL (6.4-8.3)
[2024-04-05 23:35] LABS: BILIRUBIN,DIRECT < 0.1 mg/dL (0.0-0.3)
[2024-04-06] MEDS: IPRATROPIUM/ALBUTEROL SULFATE 3 ML AMPUL.NEB (DUONEB) INH ONE (00:11)
[2024-04-06] MEDS: DEXAMETHASONE SOD PHOSPHATE 10 MG/ML VIAL IM ONE (00:24)
[2024-04-06 00:35] VITALS: BP_SYST 108; PULSE 64; RESP 22; TEMP 97.8; O2SAT 94
[2024-04-06] MEDS: methylPREDNISolone SOD SUCC/PF 62.5 MG/ML VIAL IVP ONE (00:43)
== END 2024-04-06 00:46 | disposition home or self-care (01) ==
LOC: SED 19:43
DX: J44.1 Chronic obstructive pulmonary disease with (acute) exacerbation (principal); J18.9 Pneumonia, unspecified organism; K21.9 Gastro-esophageal reflux disease without esophagitis; F17.200 Nicotine dependence, unspecified, uncomplicated; F15.10 Other stimulant abuse, uncomplicated; Z88.1 Allergy status to other antibiotic agents; Z88.4 Allergy status to anesthetic agent; Z91.041 Radiographic dye allergy status; Z79.899 Other long term (current) drug therapy
CPT/HCPCS: 99285; 71045; 80076; 80048; 85025; 85610; 85730; 87040; 84484; 36415; 93005; 94640 ×2; 83605; 96372; J7512; J1100

== ENCOUNTER 2024-04-27 14:57 | Emergency (ER) | payer MEDICAID ==
[~2024-04-27] VITALS: Ht 167.6 cm; Wt 45.4 kg
[2024-04-27 15:19] VITALS: BP_SYST 121; PULSE 98; RESP 20; TEMP 98.2; O2SAT 93
[2024-04-27 15:45] LABS: MEAN CORPUSCULAR HEMOGLOBIN 31 pg (27-31); MEAN CORPUSCULAR HGB CONC 33 % (32-36); MEAN CORPUSCULAR VOLUME 92 fL (79.0-98.0); PLATELET COUNT (AUTO) 266 K/uL (130-430); RED BLOOD CELL COUNT(AUTO) 4.88 MIL/uL (4.2-6.2); RED CELL DISTRIBUTION WIDTH 13.8 % (9.0-15.0); WHITE BLOOD COUNT (AUTO) 8.7 K/uL (4.8-10.8)
[2024-04-27 16:08] LABS: ALANINE AMINOTRANSFERASE 33 U/L (12-78); ALBUMIN 3.3 g/dL (3.4-4.8); ASPARTATE AMINOTRANSFERASE 31 U/L (10-37); CALCIUM 8.7 mg/dL (8.4-11.0); CARBON DIOXIDE 36 mmol/L (23-29); CREATININE 0.68 mg/dL (0.55-1.30); GFR AFRICAN AMERICAN 116 mL/min (>90); GFR NON AFRICAN-AMERICAN 95 mL/min (>90); GLUCOSE 104 mg/dL (74-106); TOTAL BILIRUBIN 0.4 mg/dL (0.0-1.0); TOTAL PROTEIN, SERUM 6.5 g/dL (6.4-8.3); UREA NITROGEN, BLOOD 19 mg/dL (8-21)
[2024-04-27 16:26] LABS: CHLORIDE 103 mmol/L (98-107); POTASSIUM 4.1 mmol/L (3.5-5.1); SODIUM SERUM 140 mmol/L (136-145)
[2024-04-27 16:28] LABS: ANION GAP < 3 (5-15)
[2024-04-27 16:33] LABS: BAND % (MANUAL) 2 % (0-6); BASOPHILS % (MANUAL) 0 % (0-2); EOSINOPHILS % (MANUAL) 25 % (0-7); LYMPHOCYTES % (MANUAL) 22 % (20-46); MONOCYTES % (MANUAL) 5 % (0-11); PLATELET ESTIMATE ADEQUATE (ADEQUATE); TEAR DROP CELLS FEW
[2024-04-27 16:34] LABS: OVALOCYTES FEW
[2024-04-27] MEDS ORDERED: ALBMDI INH (17:09)
[2024-04-27] MEDS ORDERED: PRED20TA PO (17:09)
[2024-04-27] MEDS ORDERED: MOME13HF12 INH (17:09)
[2024-04-27 18:44] VITALS: BP_SYST 124; PULSE 99; RESP 20; TEMP 98.2; O2SAT 94
[2024-04-27] MEDS: predniSONE 20 MG TABLET PO ONE (19:09)
== END 2024-04-27 18:40 | disposition home or self-care (01) ==
LOC: SED 14:57
DX: J44.1 Chronic obstructive pulmonary disease with (acute) exacerbation (principal); R51.9 Headache, unspecified; F17.200 Nicotine dependence, unspecified, uncomplicated; Z71.6 Tobacco abuse counseling; K21.9 Gastro-esophageal reflux disease without esophagitis; Z91.041 Radiographic dye allergy status; Z88.1 Allergy status to other antibiotic agents; Z88.8 Allergy status to other drugs, medicaments and biological substances; Z79.899 Other long term (current) drug therapy; Z79.2 Long term (current) use of antibiotics
CPT/HCPCS: 99284; 71045; 85027; 80053; 85007; 84484; 36415; J7512; 93005